=== PATIENT | male | born 1955 | race Caucasian/White ===

== ENCOUNTER → 2020-02-10 16:06 | Outpatient (BNVA) | payer MEDICAID, SELFPAY | PROVIDERS: Family Provider Nurse Practitioner Family; PCP Nurse Practitioner Family; Visit Provider Family Medicine | DX: M25.862 Other specified joint disorders, left knee (principal); M25.562 Pain in left knee; M25.572 Pain in left ankle and joints of left foot | CPT/HCPCS: 73562; 73600 ==

== ENCOUNTER → 2020-06-14 08:45 | Outpatient (BNVA) | payer MEDICAID, SELFPAY | PROVIDERS: Family Provider Nurse Practitioner Family; PCP Nurse Practitioner Family; Visit Provider Nurse Practitioner Family | DX: J44.9 Chronic obstructive pulmonary disease, unspecified (principal); R53.83 Other fatigue; E55.9 Vitamin D deficiency, unspecified; Z13.6 Encounter for screening for cardiovascular disorders; Z79.899 Other long term (current) drug therapy | CPT/HCPCS: 80053; 80061; 81003; 82306; 83036; 84443; 85025 ==

== ENCOUNTER → 2022-02-15 09:12 | Outpatient (BNVA) | payer MEDICARE, MEDICAID, SELFPAY | PROVIDERS: Family Provider Nurse Practitioner Family; PCP Nurse Practitioner; Visit Provider Nurse Practitioner | DX: J44.9 Chronic obstructive pulmonary disease, unspecified (principal); Z13.6 Encounter for screening for cardiovascular disorders; Z79.899 Other long term (current) drug therapy; Z12.5 Encounter for screening for malignant neoplasm of prostate; E55.9 Vitamin D deficiency, unspecified; J30.89 Other allergic rhinitis; M25.572 Pain in left ankle and joints of left foot; M25.562 Pain in left knee; Z00.00 Encounter for general adult medical examination without abnormal findings; M19.90 Unspecified osteoarthritis, unspecified site; Z23 Encounter for immunization | CPT/HCPCS: 80053; 80061; 82306; 84443; 85025; G0103 ==

== ENCOUNTER 2023-02-16 21:41 | Emergency (ER) | payer MEDICARE, MEDICAID, SELFPAY ==
[2023-02-16 22:06] VITALS: BP 119/86; PULSE 110; RESP 22; TEMP 36.6; O2SAT 93; BMI 22.6
--- NOTE | 2023-02-16 22:11 | XRR_ITS ---
PROCEDURE INFORMATION: Exam: XR Chest Exam date and time: 02/16/2023 10:17 PM Age: 67 years old Clinical indication: Shortness of breath; Patient HX: SOB; Copd; Chf; Smoker TECHNIQUE: Imaging protocol: Radiologic exam of the chest. Views: 1 view. COMPARISON: CT angio chest PE protcl [id number] 08/20/2018 10:07 PM FINDINGS: Lungs: At least mild COPD with diffuse interstitial scarring. Pleural spaces: Unremarkable. No pleural effusion. No pneumothorax. Heart/Mediastinum: The heart is large. Vasculature: Advanced diffuse vascular calcification noted. Bones/joints: Moderate spine DJD. XR/XR chest 1V portable [id number] IMPRESSION: 1. Chronic findings above, no acute process. 2. Findings have progressed from 05/07/2017.
[2023-02-16 22:21] LABS: Basophils # 0.1 10^3/uL (0.0-0.1); Eosinophils # 0.2 10^3/uL (0.0-0.8); Eosinophils % 2.7 %; Hematocrit 46.4 % (37-53); Lymphocytes # 2.6 10^3/uL (0.8-4.8); Lymphocytes % 32.3 %; Mean Corpuscular HGB Conc 31.9 g/dL (30-55); Mean Corpuscular Hemoglobin 28.3 pg (27-33); Mean Corpuscular Volume 88.7 fl (82-101); Monocytes # 0.7 10^3/uL (0.2-0.9); Neutrophils # 4.52 10^3/uL (1.8-7.7); Neutrophils % 55.6 %; Nucleated Red Blood Cells % 0.4 %; Platelet Count 269 10^3/cmm (157-399); Red Blood Count 5.23 10^6/uL (3.85-5.65); Red Cell Distribution Width 15.1 % (12.1-15.1); White Blood Count 8.13 10^3/uL (3.29-11.43)
--- NOTE | 2023-02-16 22:28 | ED_ITS ---
HPI - SOB/Dyspnea 2 General: Chief Complaint: Shortness of Breath/Dyspnea Stated Complaint: Shortness of breath Time Seen by Provider: 02/16/23 22:11 History of Present Illness: HPI Narrative: Patient presents to the ER with complaints of shortness of breath over the last 3 days. Patient says been getting worse. Patient denies any fever chills. Patient has a rattling cough. Patient does have a history of COPD and is on albuterol and DuoNeb. Patient does not use Nor does he have oxygen at home. Patient has not been around any known sick contacts. Patient did go to his PCPs office on 1126 patient was given a diagnosis of COPD exacerbation gastroenteritis. He was given Rocephin 1 g, Decadron 10 mg, had his inhalers refilled and Zofran. Patient has a heart rate of 110 bpm in the ER as well as a O2 saturation of 93% on room air. Upon reviewing chart patient is tachycardic a lot of times with heart rate being 100 110 bpm. Related Data: Home oxygen amount: none Review of Systems 2 General: Reports: 10 or more systems reviewed and unremarkable except in HPI and below PFSH ED 2 PFSH: Medical History COPD exacerbation Nausea & vomiting Lower respiratory infection Environmental and seasonal allergies Fatigue Hypertension screen Medication management Vitamin D deficiency Left ankle pain Left knee pain Mild acid reflux COPD (chronic obstructive pulmonary disease) Anxiety Hypercholesterolemia Surgical History Status post bladder repair Status post lobectomy of lung Family History Other CAD (coronary artery disease) Cancer Hyperlipidemia Hypertension Social History Smoking and tobacco/nicotine status: current every day tobacco/nicotine user Alcohol intake: former Substance/Drug Use: former Physical Exam 2 Const: COMMON NORMALS: no acute distress, average body habitus, patient oriented x3, no limitations, healthy appearing, alert and well nourished HENMT: COMMON NORMALS: normocephalic, atraumatic, hearing grossly normal bilaterally, external ears normal, Normal external nose present, moist oral mucous membranes and oropharynx normal HEAD & SCALP: normocephalic and atraumatic NOSE: Normal external nose present EXTERNAL EAR: Yes external ears normal Neck/C-Spine: COMMON NORMALS: full ROM, no lymphadenopathy, supple, no meningeal signs, no JVD and Thyroid normal THYROID: Thyroid normal Chest: COMMONS NORMALS: normal inspection of the chest and normal palpation of entire chest wall Resp: COMMON NORMALS: normal respiratory effort, No retractions and No use of accessory muscles; negative for clear to auscultation bilaterally (Diffuse rhonchi and wheezing bilaterally) AUSCULTATION: not clear to auscultation bilaterally (Diffuse rhonchi and wheezing bilaterally) Cardio: COMMON NORMALS: no JVD, regular rhythm, S1 normal heart sound present, S2 normal heart sound present, No gallops present (Cardio), No clicks present (Cardio), No murmurs present (Cardio) and No rub (Cardio); negative for regular rate (Tachycardic) RATE: abnormal rate (Tachycardic) RHYTHM: regular rhythm HEART SOUNDS: S1 normal heart sound present and S2 normal heart sound present GI: COMMON NORMALS: Normal to inspection, nondistended, normoactive bowel sounds present, Soft to palpation, non-tender, No hepatosplenomegaly present and no masses PALPATION: Yes Soft to palpation and Yes No hepatosplenomegaly present Neuro: COMMON NORMALS: patient oriented x3 SENSORIUM/ORIENTATION: Yes alert MENINGEAL SIGNS: Yes no meningeal signs Course 2 Vital Signs: Vital signs: Vital Signs Temperature 97.8 F 02/16/23 22:06 Pulse Rate 89 02/17/23 01:44 Respiratory Rate 18 02/17/23 01:44 Blood Pressure 126/89 02/17/23 01:44 Pulse Oximetry 94 02/17/23 01:44 Oxygen Delivery Me thod Nasal Cannula 02/17/23 00:22 Oxygen Flow Rate 2 02/17/23 00:22 MDM - SOB/Dyspnea Medical Decision Making Patient presents to the ER complaining of shortness of breath. Lab work was essentially unremarkable. Chest x-ray showed chronic findings no acute changes CT of a of chest showed no PE and COPD changes. Patient will probably be discharged with COPD diagnosis. Differential Diagnosis Likely acute exacerbation of chronic obstructive airways disease; Unlikely congestive heart failure, community acquired pneumonia, asthma with exacerbation or pulmonary embolism Medical Records I reviewed the patient's medical records. Lab Data I reviewed the patient's lab results. 12/01/23 22:00 02/16/23 22:00 Labs/Radiology: Radiology Impressions Chest X-Ray 02/16/23 22:11 IMPRESSION: 1. Chronic findings above, no acute process. 2. Findings have progressed from 05/07/2017. Chest CTA 02/16/23 23:53 IMPRESSION: 1. No PE. 2. Very large heart with trace left effusion and areas of bilateral mid to lower lung atelectasis or scarring. 3. COPD and other chronic findings above. A few lung opacities as described with mild lymphadenopathy. Recommend six-month follow-up. Laboratory Results WBC 8.13 10^3/uL (3.29-11.43) 02/16/23 22:00 RBC 5.23 10^6/uL (3.85-5.65) 02/16/23 22:00 Hgb 14.80 g/dL (11.27-16.99) 02/16/23 22:00 Hct 46.4 % (37-53) 02/16/23 22:00 MCV 88.7 fl (82-101) 02/16/23 22:00 MCH 28.3 pg (27-33) 02/16/23 22:00 MCHC 31.9 g/dL (30-55) 02/16/23 22:00 RDW 15.1 % (12.1-15.1) 02/16/23 22:00 Plt Count 269 10^3/cmm (157-399) 02/16/23 22:00 MPV 10.0 fL (7.4-10.4) 02/16/23 22:00 Neut % (Auto) 55.6 % 02/16/23 22:00 Lymph % (Auto) 32.3 % 02/16/23 22:00 [place] % (Auto) 8.0 % 02/16/23 22:00 Eos % (Auto) 2.7 % 02/16/23 22:00 Baso % (Auto) 1.0 % 02/16/23 22:00 Neut # (Auto) 4.52 10^3/uL (1.8-7.7) 02/16/23 22:00 Lymph # (Auto) 2.6 10^3/uL (0.8-4.8) 02/16/23 22:00 [place] # (Auto) 0.7 10^3/uL (0.2-0.9) 02/16/23 22:00 Eos # (Auto) 0.2 10^3/uL (0.0-0.8) 02/16/23 22:00 Baso # (Auto) 0.1 10^3/uL (0.0-0.1) 02/16/23 22:00 Nucleated RBC % (auto) 0.4 % 02/16/23 22:00 Nucleated RBCs # 0.0 /100WBC 02/16/23 22:00 D-Dimer 1.75 ug/mLFEU (0-0.59) H 02/16/23 23:05 Sodium 139 mmol/L (136-145) 02/16/23 22:00 Potassium 4.5 mmol/L (3.5-5.1) 02/16/23 22:00 Chloride 102 mmol/L (98-107) 02/16/23 22:00 Carbon Dioxide 25 mmol/L (22-29) 02/16/23 22:00 Anion Gap 16.5 (5-19) 02/16/23 22:00 BUN 19 mg/dL (8-23) 02/16/23 22:00 Creatinine 0.7 mg/dL (0.7-1.2) 02/16/23 22:00 GFR Calculation 112.5 mL/min (90-130) 02/16/23 22:00 Glucose 115 mg/dL (65-115) 02/16/23 22:00 Calculated Osmolality 291 mOsm/kg (285-295) 02/16/23 22:00 Calcium 9.1 mg/dL (8.5-10.5) 02/16/23 22:00 Total Bilirubin 0.8 mg/dL (0.15-1.2) 02/16/23 22:00 AST 56 U/L (0-40) H 02/16/23 22:00 ALT 98 U/L (0-41) H 02/16/23 22:00 Alkaline Phosphatase 120 U/L (40-130) 02/16/23 22:00 Troponin T Baseline 27 ng/L (0-15) H 02/16/23 22:00 Troponin T 120 Minute 25.51 ng/L (0-15) H 02/17/23 00:25 Delta Troponin T -1.49 ABS# (0-10) L 02/17/23 00:25 Total Protein 6.9 g/dL (6.6-8.7) 02/16/23 22:00 Albumin 3.9 g/dL (3.5-5.2) 02/16/23 22:00 Globulin 3.0 g/dL (1.3-4.6) 02/16/23 22:00 Influenza Type A Ag negative (Negative) 02/16/23 23:00 Influenza Type B Ag negative (Negative) 02/16/23 23:00 SARS-CoV-2 Ag (Rapid) negative (Negative) 02/16/23 23:00 All radiology interpretation(s) finalized by discharge EKG Data EKG 1: I personally reviewed and interpreted this EKG as follows: EKG Interpretation Date: 02/16/23 EKG interpretation time: 22:39 Prior EKG tracings: not available for review Interpretation: EKG shows ventricular rate 106 bpm, OH interval 137, QRS duration 114, QTc of 401, sinus tachycardia, moderate intraventricular conduction delay Discharge Plan Discharge Patient Disposition: Home Clinical Impression: Acute exacerbation of chronic obstructive airways disease Condition: Stable Prescriptions: New prednisone 20 mg tablet 60 mg PO DAILY Qty: 15 0RF doxycycline hyclate 100 mg tablet 100 mg PO BID 7 Days Qty: 14 0RF No Action ceftriaxone 1 gram recon soln 1 g IM ONCE Qty: 1 0RF dexamethasone sodium phosphate 4 mg/mL solution 4 mg IM ONCE Qty: 1 0RF ondansetron HCl 4 mg tablet 4 mg PO Q8H PRN (Reason: nausea and vomiting) 5 Days Qty: 14 0RF promethazine-DM 6.25-15 mg/5 mL syrup 5 - 10 ml PO Q6H PRN (Reason: cough) 14 Days Qty: 473 0RF fluticasone propion-salmeterol [Advair Diskus] 500-50 mcg/dose blister with device See Rx Instructions .ROUTE .COMPLEX Qty: 60 0RF Dose Instruction: USE 1 INHALATION BY MOUTH TWICE DAILY Rx Instructions: USE 1 INHALATION BY MOUTH TWICE DAILY famotidine 20 mg tablet See Rx Instructions .ROUTE .COMPLEX Qty: 60 11RF Dose Instruction: Take 1 tablet by mouth twice daily Rx Instructions: Take 1 tablet by mouth twice daily Atrovent HFA 17 mcg/actuation HFA aerosol inhaler See Rx Instructions .ROUTE .COMPLEX Qty: 12.9 11RF Dose Instruction: USE 2 INHALATIONS BY MOUTH 4 TIMES DAILY Rx Instructions: USE 2 INHALATIONS BY MOUTH 4 TIMES DAILY albuterol sulfate 90 mcg/actuation HFA aerosol inhaler See Rx Instructions .ROUTE .COMPLEX Qty: 6.7 11RF Dose Instruction: Inhale 1 puff by mouth 3 times a day as needed for shortness of breath Rx Instructions: Inhale 1 puff by mouth 3 times a day as needed for shortness of breath albuterol sulfate [ProAir HFA] 90 mcg/actuation HFA aerosol inhaler 1 inh INHALATION TID PRN (Reason: shortness of breath) Qty: 18 5RF celecoxib [Celebrex] 200 mg capsule 200 mg PO DAILY Qty: 30 4RF ergocalciferol (vitamin D2) 1,250 mcg (50,000 unit) capsule See Rx Instructions .ROUTE .COMPLEX Qty: 4 2RF Dose Instruction: TAKE ONE CAPSULE BY MOUTH ONCE A WEEK Rx Instructions: TAKE ONE CAPSULE BY MOUTH ONCE A WEEK fluticasone propionate 50 mcg/actuation spray,suspension See Rx Instructions .ROUTE .COMPLEX Qty: 16 2RF Dose Instruction: Use 1 spray into each nostril every day Rx Instructions: Use 1 spray into each nostril every day albuterol sulfate 2.5 mg /3 mL (0.083 %) solution for nebulization See Rx Instructions .ROUTE .COMPLEX Qty: 180 0RF Dose Instruction: USE 1 VIAL (3 ML) IN NEBULIZER every 6 HOURS Needed FOR shortness OF breath OR wheezing Rx Instructions: USE 1 VIAL (3 ML) IN NEBULIZER every 6 HOURS Needed FOR shortness OF breath OR wheezing Discharge Orders: Discharge ED (Routine); Ordered 02/17/23 Ordered By: Tono Gallegos Referrals: Shannon Merchant FNP [Primary Care Provider] - 1-3 days Patient Instructions: COPD (Chronic Obstructive Pulmonary Disease) (ED), Opioid Safety, Pain Management Activity Restrictions/Additional Instructions: Use your nebulizer machine every 4 hours while awake for the next 48 hours scheduled whether you feel like you needed or not, then as needed following. Other medications as directed. Return for worsening shortness of breath or chest discomfort or fever despite treatment. See your doctor next week. Coding Level of Care Code ED Foam Caster for Gavin Oliveros
--- NOTE | 2023-02-16 22:39 | ECG_ITS ---
[facility] Test Date: 2023-02-16 Pat Name: José Collier Department: Room: Gender: Male Circulation Clerk: : 1955 Requested By: Barron De Oliveira Order Number: [id number] Keren MD: Layla New M.D. Measurements Intervals [place] Rate: 106 P: 73 MO: 137 QRS: -9 QRSD: 114 T: 119 QT: 339 QTc: 450 Interpretive Statements SINUS TACHYCARDIA POSSIBLE LEFT ATRIAL ENLARGEMENT [-0.1mV P-WAVE IN V1/V2] MODERATE INTRAVENTRICULAR CONDUCTION DELAY [110+ ms QRS DURATION] ST DEVIATION AND MODERATE T-WAVE ABNORMALITY, CONSIDER LATERAL ISCHEMIA [-0.1+ mV T-WAVE IN I/aVL/V5/V6] Compared to ECG 08/20/2018 19:51:00 Intraventricular conduction delay now present T-wave abnormality now present Possible ischemia now present Left ventricular hypertrophy no longer present ST (T wave) deviation no longer present Electronically Signed On 02-18-2023 21:32:18 BUSINESS LIBRARIAN by Layla New M.D. [id number]
[2023-02-16 22:44] LABS: Alanine Aminotransferase 98 U/L (0-41); Albumin Level 3.9 g/dL (3.5-5.2); Alkaline Phosphatase 120 U/L (40-130); Anion Gap 16.5 (5-19); Aspartate Amino Transferase 56 U/L (0-40); Blood Urea Nitrogen 19 mg/dL (8-23); Calcium 9.1 mg/dL (8.5-10.5); Carbon Dioxide 25 mmol/L (22-29); Chloride 102 mmol/L (98-107); Glomerular Filtration Rate 112.5 mL/min (90-130); Glucose 115 mg/dL (65-115); Osmolality Calculated 291 mOsm/kg (285-295); Potassium 4.5 mmol/L (3.5-5.1); Sodium 139 mmol/L (136-145); Total Bilirubin 0.8 mg/dL (0.15-1.2); Total Protein 6.9 g/dL (6.6-8.7)
[2023-02-16 23:14] LABS: Troponin(5th) Baseline 27 ng/L (0-15)
[2023-02-16 23:34] LABS: Influenza A by IFA negative (Negative); Influenza B by IFA negative (Negative); SARS Covid-2 Antigen negative (Negative)
[2023-02-16 23:44] LABS: D Dimer 1.75 ug/mLFEU (0-0.59)
--- NOTE | 2023-02-16 23:53 | CTR_ITS ---
PROCEDURE INFORMATION: Exam: CTA Chest With Contrast Exam date and time: 02/17/2023 12:08 AM Age: 67 years old Clinical indication: Abnormal findings; Abnormal diagnostic tests; Elevated d-dimer; Cough and shortness of breath; Patient HX: Cough with SOB. Dimer 1.75. ; Additional info: Elevated d dimer, tachycardia, hypoxia TECHNIQUE: Imaging protocol: Computed tomographic angiography of the chest with contrast. Exam focused on the arteries. 3D rendering (Not supervised by radiologist): MIP and/or 3D reconstructed images were created by the technologist. Radiation optimization: All CT scans at this facility use at least one of these dose optimization techniques: automated exposure control; mA and/or kV adjustment per patient size (includes targeted exams where dose is matched to clinical indication); or iterative reconstruction. Contrast material: OMNI 350; Contrast volume: 77 ml; Contrast route: INTRAVENOUS (IV); REPORTING DATA: Count of CT and Cardiac NM exams in prior 12 months: This patient has received 0 known CTs and 0 known cardiac nuclear medicine studies in the 12 months prior to the current study. COMPARISON: CT angio chest PE protcl [id number] 08/20/2018 10:07 PM RADIATION DOSE METRICS: Total DLP (mGy-cm): 211.38 FINDINGS: Pulmonary arteries: No main, lobar, or segmental PE identified. Aorta: Advanced diffuse vascular calcification noted. No aortic aneurysm. No aortic dissection. Lungs: Moderate COPD. Mild areas of bilateral mid to lower lung atelectasis or scarring. No actual consolidation is noted. No dominant lung mass or spiculated nodule. Small area of RML nodular consolidation or scar. Pleural spaces: Trace left pleural effusion. Heart: The heart is very large. Coronary arteries: Advanced coronary calcified plaque. Lymph nodes: Mild likely reactive mediastinal and right hilar lymphadenopathy. Diaphragm: Small hiatal hernia. Liver: Partially assessed large liver. Bones/joints: Mild spine DJD. Soft tissues: Unremarkable. CT/CT angio chest PE protcl [id number] IMPRESSION: 1. No PE. 2. Very large heart with trace left effusion and areas of bilateral mid to lower lung atelectasis or scarring. 3. COPD and other chronic findings above. A few lung opacities as described with mild lymphadenopathy. Recommend six-month follow-up.
[2023-02-17] MEDS: iohexol 350 mg/mL 500 mL Btl (per mL) IV (00:11)
[2023-02-17 00:15] VITALS: PULSE 105; RESP 20; O2SAT 93
[2023-02-17] MEDS: albuterol 2.5 mg/3 mL Neb INHALATION (00:17)
[2023-02-17 00:22] VITALS: PULSE 104; O2SAT 95
--- NOTE | 2023-02-17 00:30 | ECG_ITS ---
[facility] Test Date: 2023-02-17 Pat Name: José Collier Department: Room: Gender: Male Legal Office Administrator: : 1955 Requested By: Barron De Oliveira Order Number: [id number] Keren MD: Layla New M.D. Measurements Intervals [place] Rate: 106 P: 74 VT: 108 QRS: -8 QRSD: 113 T: 144 QT: 349 QTc: 464 Interpretive Statements SINUS TACHYCARDIA WITH SHORT VT INTERVAL POSSIBLE LEFT ATRIAL ENLARGEMENT [-0.1mV P-WAVE IN V1/V2] MODERATE INTRAVENTRICULAR CONDUCTION DELAY [110+ ms QRS DURATION] ST DEVIATION AND MODERATE T-WAVE ABNORMALITY, CONSIDER LATERAL ISCHEMIA [-0.1+ mV T-WAVE IN I/aVL/V5/V6] Compared to ECG 02/16/2023 22:39:43 Short VT interval now present T-wave abnormality still present Possible ischemia still present Electronically Signed On 02-18-2023 21:36:11 LIBRARY CIRCULATION CLERK by Layla New M.D. [id number]
[2023-02-17 01:07] LABS: Troponin 5 2HR 25.51 ng/L (0-15)
[2023-02-17 01:09] LABS: Troponin 5 2HR Delta -1.49 ABS# (0-10)
[2023-02-17 01:44] VITALS: BP 126/89; PULSE 89; RESP 18; O2SAT 94
[2023-02-17] MEDS: doxycycline 100 mg Tablet PO (01:44)
== END 2023-02-17 01:45 | disposition home or self-care (01) ==
PROVIDERS: Emergency Provider Emergency Medicine; PCP Nurse Practitioner
DX: J44.1 Chronic obstructive pulmonary disease with (acute) exacerbation (principal); Z11.52 Encounter for screening for COVID-19; Z72.0 Tobacco use; Z90.5 Acquired absence of kidney
CPT/HCPCS: 36415; 71045; 71275; 80053; 84484; 85025; 85378; 87040; 87426; 87804; 93005; 94640; 99285; J7613; Q9967

== ENCOUNTER 2023-02-25 01:56 | Inpatient (IN) | payer MEDICARE, MEDICAID, SELFPAY ==
[2023-02-25] VITALS (82 sets, daily range): BP systolic 87–133; BP diastolic 55–87; PULSE 88–115; RESP 14–30; TEMP 36.3–37; O2SAT 90–100; BMI 18.8
--- NOTE | 2023-02-25 02:18 | XRR_ITS ---
PROCEDURE INFORMATION: Exam: XR Chest Exam date and time: 02/25/2023 2:27 AM Age: 67 years old Clinical indication: Shortness of breath; Patient HX: C/O SOB. History of copd. TECHNIQUE: Imaging protocol: Radiologic exam of the chest. Views: 1 view. COMPARISON: CT angio chest PE protcl [id number] 02/17/2023 12:08 AM FINDINGS: Lungs: No new focal consolidation. Irregular opacities in the right middle lobe seen on recent CT are not well visualized radiographically. Scattered atelectasis/scarring. Background COPD/emphysema. Pleural spaces: No large pleural effusion. No pneumothorax. Heart/Mediastinum: Cardiomegaly. Bones/joints: No acute abnormality. XR/XR chest 1V portable [id number] IMPRESSION: 1. Unchanged exam compared to 02/16/2023 radiographs. 2. No new focal consolidation. Irregular opacities in the right middle lobe seen on recent CT are not well visualized radiographically. 3. Background COPD/emphysema. 4. Cardiomegaly.
--- NOTE | 2023-02-25 02:26 | ECG_ITS ---
[facility] Test Date: 2023-02-25 Pat Name: José Collier Department: Room: Gender: Male Hop Worker: : 1955 Requested By: Tono Delatorre Order Number: [id number] Keren MD: Gustavo Whittington M.D. Measurements Intervals [place] Rate: 104 P: 74 CO: 108 QRS: -31 QRSD: 113 T: 142 QT: 357 QTc: 471 Interpretive Statements SINUS TACHYCARDIA WITH SHORT CO INTERVAL POSSIBLE LEFT ATRIAL ENLARGEMENT [-0.1mV P-WAVE IN V1/V2] LEFT AXIS DEVIATION [QRS AXIS < -30] MODERATE INTRAVENTRICULAR CONDUCTION DELAY [110+ ms QRS DURATION] ST DEVIATION AND MODERATE T-WAVE ABNORMALITY, CONSIDER LATERAL ISCHEMIA [-0.1+ mV T-WAVE IN I/aVL/V5/V6] Compared to ECG 02/17/2023 00:30:09 Left-axis deviation now present T-wave abnormality still present Possible ischemia still present Electronically Signed On 02-25-2023 8:36:54 HOP WORKER by Gustavo Whittington M.D. [id number] mendez
[2023-02-25 02:29] LABS: Basophils % 0.1 %; Hematocrit 44.6 % (37-53); Lymphocytes # 1.2 10^3/uL (0.8-4.8); Lymphocytes % 8.3 %; Mean Corpuscular HGB Conc 32.7 g/dL (30-55); Mean Corpuscular Hemoglobin 28.1 pg (27-33); Mean Corpuscular Volume 85.8 fl (82-101); Mean Platelet Volume 9.9 fL (7.4-10.4); Monocytes % 7.1 %; Neutrophils % 83.6 %; Nucleated Red Blood Cells # 0.2 /100WBC; Nucleated Red Blood Cells % 1.2 %; Platelet Count 176 10^3/cmm (157-399); Red Cell Distribution Width 15.2 % (12.1-15.1); White Blood Count 14.14 10^3/uL (3.29-11.43)
[2023-02-25 02:55] LABS: Anion Gap 15.5 (5-19); Blood Urea Nitrogen 29 mg/dL (8-23); Calcium 8.7 mg/dL (8.5-10.5); Carbon Dioxide 28 mmol/L (22-29); Chloride 95 mmol/L (98-107); Glomerular Filtration Rate 96.4 mL/min (90-130); Glucose 121 mg/dL (65-115); Osmolality Calculated 285 mOsm/kg (285-295); Potassium 4.5 mmol/L (3.5-5.1); Sodium 134 mmol/L (136-145)
[2023-02-25] MEDS: ipratropium-albuterol 3 mL Neb INHALATION ×4 (03:24→20:27)
[2023-02-25] MEDS: morphine 4 mg/mL SDV 1 mL IVP (04:14)
[2023-02-25] MEDS: ondansetron 2 mg/ML SDV 2 mL 4 MG IVP ×2 (04:14→17:39)
--- NOTE | 2023-02-25 04:14 | PC.NURSE ---
Pt. yelling at doctor Gallegos because he did not like the diagnoses that doctor Gallegos told him. Pt. states that he was just released from [place] and was angry because they did not admit him. Dr. Gallegos tried to explain to the patient that he can not admit a patient without meeting the correct criteria. Pt. is yelling and being disrespectful until Dr. Gallegos states that he will make some calls and consult hospitalist.
--- NOTE | 2023-02-25 04:22 | ED_ITS ---
HPI - SOB/Dyspnea 2 General: Chief Complaint: Shortness of Breath/Dyspnea Stated Complaint: SOB Time Seen by Provider: 02/25/23 03:05 History of Present Illness: HPI Narrative: 67-year-old male gentleman with a histor y of COPD. He has been here last week, diagnosed with a COPD exacerbation, and sent home with steroids. Since that time, he has been to [facility], and been diagnosed with pneumonia . He was sent home on Augmentin and steroids at that point. He presents with continued cough and shortness of breath. He describes bloody sputum production. He states that he has not been able to eat. He has been vomiting. He denies overt chest discomfort. He is on 2 L of oxygen at home. En route to the hospital, he received 125 mg of Solu-Medrol, and albuterol treatment and DuoNeb treatment. Associated symptoms: Reports abdominal pain, chest pain, nausea and vomiting; Deny dizziness, fever(s) or palpitations Review of Systems 2 Const: Denies: fever(s), chills or body aches Eyes: Denies: change in vision Card: Reports: chest pain; Denies: palpitations Resp: Reports: dyspnea, productive cough and wheezing; Denies: non-productive cough GI: Reports: abdominal pain, nausea and vomiting; Denies: diarrhea or hematochezia Skin/Breast: Denies: rash Neuro: Reports: weakness in extremities; Denies: headache(s), dizziness or confusion PFSH ED 2 PFSH: Medical History Pulmonary HTN Tobacco abuse Gastric ulcer Left ventricular dysfunction COPD exacerbation Nausea & vomiting Lower respiratory infection Environmental and seasonal allergies Fatigue Hypertension screen Medication management Vitamin D deficiency Left ankle pain Left knee pain Mild acid reflux COPD (chronic obstructive pulmonary disease) Anxiety Hypercholesterolemia Surgical History Status post bladder repair Status post lobectomy of lung Family History Other CAD (coronary artery disease) Cancer Hyperlipidemia Hypertension Social History Smoking and tobacco/nicotine status: current every day tobacco/nicotine user Alcohol intake: former Substance/Drug Use: former Physical Exam 2 Const: GENERAL APPEARANCE: cooperative, ill appearing and frail appearing N UTRITIONAL APPEARANCE: thin HENMT: COMMON NORMALS: normocephalic, atraumatic and Normal external nose present HEAD & SCALP: normocephalic and atraumatic FACE & SINUS: normal facial exam and face symmetric NOSE: Normal external nose present Eye: COMMON NORMALS: Equal, round and reactive pupils present and EOMs intact bilaterally PUPIL: Yes Equal, round and reactive pupils present Neck/C-Spine: GENERAL: Yes trachea midline Chest: CHEST: Yes Symmetrical chest wall rise Resp: EFFORT & INSPECTION: Yes tachypneic and Yes labored AUSCULTATION: w heezes and diminished lung sounds Cardio: COMMON NORMALS: regular rhythm RATE: tachycardic RHYTHM: regular rhythm GI: COMMON NORMALS: Normal to inspection, nondistended, normoactive bowel sounds present Extremity: COMMON NORMALS: no pedal edema Neuro: IRAJ COMA SCALE: document GCS findings [place] coma scale eye opening: Spontaneous [place] coma scale verbal response: Orientated [place] coma scale motor response: Obey commands [place] coma scale total score: 15 S ENSORY EXAM: Yes extremities (intact) Psych: COMMON NORMALS: speech normal SPEECH: Yes normal speech Skin: COMMON NORMALS: no rashes or lesions noted GENERAL SKIN EXAM: no rashes or lesions noted Course 2 Vital Signs: Vital signs: Vital Signs Temperature 97.7 F 02/25/23 12:00 Pulse Rate 100 02/25/23 15:09 Respiratory Rate 16 02/25/23 15:09 Blood Pressure 120/81 02/25/23 12:00 Pulse Oximetry 90 02/25/23 15:09 Oxygen Delivery Me thod Room Air 02/25/23 15:09 Oxygen Flow Rate 1 02/25/23 04:18 MDM - SOB/Dyspnea Medical Decision Making Vitals are stable, although he is tachypneic. He is somewhat anxious. He continues to cough bloody sputum in the emergency department. He received another DuoNeb treatment here. His BUN is 29. His white blood cell count is 14. Chest x-ray does not show a focal consolidation or infiltrate. As this is his third trip to the hospital in the week, concern is for failure of outpatient management of COPD. Will be observed. Lab Data 02/25/23 02:22 02/25/23 02:22 Labs/Radiology: Radiology Impressions Chest X-Ray 02/25/23 02:18 IMPRESSION: 1. Unchanged exam compared to 02/16/2023 radiographs. 2. No new focal consolidation. Irregular opacities in the right middle lobe seen on recent CT are not well visualized radiographically. 3. Background COPD/emphysema. 4. Cardiomegaly. Chest/Abdomen/Pelvis CT 02/25/23 12:02 IMPRESSION: 1. Interval development of findings suspicious for esophagitis in the mid/distal esophagus. Upper endoscopy may be obtained for further evaluation as clinically indicated. 2. No evidence for pulmonary embolism. 3. Bronchial wall thickening in the right and left lower lobes. Findings could be due to emphysematous changes versus bronchitis. 4. Mild body wall edema. 5. Incidental/nonacute findings are listed in the report. IMPRESSION: 1. Inflamed gastric ulcer in the posterior distal body of the stomach. Increased density layering in the lumen of the stomach, this could represent partially digested medications however a gastric bleed can not be ruled out. Upper endoscopy may be obtained for further evaluation as clinically indicated. 2. Mild fatty infiltration of the liver. 3. Diffuse, moderate bladder wall thickening. In the correct clinical setting, this may suggest cystitis. Recommend correlation with laboratory findings. Alternatively, this may be secondary to chronic outlet obstruction. 4. Mild body wall edema. 5. Incidental/nonacute findings are listed in the report. ADDENDUM: 02/25/23 1701 THIS REPORT CONTAINS FINDINGS THAT MAY BE CRITICAL TO PATIENT CARE. The findings were verbally communicated via telephone conference with KESHA Easley at 4:59 PM CIRCUS TRAINER on 02/25/2023. The findings were acknowledged and understood. Laboratory Results WBC 14.14 10^3/uL (3.29-11.43) H 02/25/23 02:22 RBC 5.20 10^6/uL (3.85-5.65) 02/25/23 02:22 Hgb 14.60 g/dL (11.27-16.99) 02/25/23 02:22 Hct 44.6 % (37-53) 02/25/23 02:22 MCV 85.8 fl (82-101) 02/25/23 02:22 MCH 28.1 pg (27-33) 02/25/23 02:22 MCHC 32.7 g/dL (30-55) 02/25/23 02:22 RDW 15.2 % (12.1-15.1) H 02/25/23 02:22 Plt Count 176 10^3/cmm (157-399) 02/25/23 02:22 MPV 9.9 fL (7.4-10.4) 02/25/23 02:22 Neut % (Auto) 83.6 % 02/25/23 02:22 Lymph % (Auto) 8.3 % 02/25/23 02:22 [place] % (Auto) 7.1 % 02/25/23 02:22 Eos % (Auto) 0.0 % 02/25/23 02:22 Baso % (Auto) 0.1 % 02/25/23 02:22 Neut # (Auto) 11.80 10^3/uL (1.8-7.7) H 02/25/23 02:22 Lymph # (Auto) 1.2 10^3/uL (0.8-4.8) 02/25/23 02:22 [place] # (Auto) 1.0 10^3/uL (0.2-0.9) H 02/25/23 02:22 Eos # (Auto) 0.0 10^3/uL (0.0-0.8) 02/25/23 02:22 Baso # (Auto) 0.0 10^3/uL (0.0-0.1) 02/25/23 02:22 Nucleated RBC % (auto) 1.2 % 02/25/23 02:22 Nucleated RBCs # 0.2 /100WBC 02/25/23 02:22 ESR 1 mm/hr (0-10) 02/25/23 02:22 Sodium 134 mmol/L (136-145) L 02/25/23 02:22 Potassium 4.5 mmol/L (3.5-5.1) 02/25/23 02:22 Chloride 95 mmol/L (98-107) L 02/25/23 02:22 Carbon Dioxide 28 mmol/L (22-29) 02/25/23 02:22 Anion Gap 15.5 (5-19) 02/25/23 02:22 BUN 29 mg/dL (8-23) H 02/25/23 02:22 Creatinine 0.8 mg/dL (0.7-1.2) 02/25/23 02:22 GFR Calculation 96.4 mL/min (90-130) 02/25/23 02:22 Glucose 121 mg/dL (65-115) H 02/25/23 02:22 Calculated Osmolality 285 mOsm/kg (285-295) 02/25/23 02:22 Calcium 8.7 mg/dL (8.5-10.5) 02/25/23 02:22 Troponin T Baseline 32 ng/L (0-15) H 02/25/23 02:22 Troponin T 120 Minute 28.87 ng/L (0-15) H 02/25/23 04:38 Delta Troponin T -3.13 ABS# (0-10) L 02/25/23 04:38 NT-Pro-B Natriuret Pep 9025 pg/mL (0-125) H 02/25/23 02:22 Vitamin B12 > 2000 pg/mL (232-1245) H 02/25/23 02:22 Procalcitonin 0.16 ng/mL (0-0.5) 02/25/23 02:22 All radiology interpretation(s) finalized by discharge Discharge Plan Discharge Patient Disposition: Admitted As Inpatient Admit Provider: Hernan Sheppard Clinical Impression: Acute CHF (congestive heart failure), COPD (chronic obstructive pulmonary disease) Condition: Fair Coding Level of Care Code ED Instrument Specialist for Gavin Oliveros
[2023-02-25 04:39] LABS: Troponin(5th) Baseline 32 ng/L (0-15)
[2023-02-25 04:46] LABS: NT Pro B Type Natriuretic Pept 9025 pg/mL (0-125)
--- NOTE | 2023-02-25 04:50 | P.HP_ITS ---
Providers/Chief Complaint 2 Primary Care Provider: Shannon Mercahnt APN Chief Complaint: SOB History of Present Illness José Collier is a 67 year old male who is presenting with chief complaint of shortness of breath with hemoptysis. Patient is stating that he has been short of breath for quite some time, he carries history of congestive heart failure but stating that he does not take any diuretic, he does not use any oxygen at home, he has had 3 visits in the ER and he was seen at [facility] he was put on steroids and antibiotics which has not improved his symptoms. Patient is stating that in the last 24 hours he has been noticing a lot of sputum production with blood, his mucoid secretions have more blood in his, patient was concerned that he is losing blood because he filled the toilet from excessive coughing and blood. However in the ER his x-ray is showing hyperinflated COPD related changes, hemoglobin is stable, he is hemodynamically stable. CTA which was done 02/16 did not show PE, it showed cardiomegaly with lymphadenopathy Patient cachectic and malnourished Lives alone, sister lives in town, Review of Systems 2 Eyes: Denies: change in vision ENMT: Reports: throat pain Card: Reports: dyspnea on exertion and orthopnea Resp: Reports: dyspnea and hemoptysis GI: Denies: abdominal pain Medications/Allergies Home Medications Medication Instructions Recorded Confirmed Last Taken Type famotidine 20 mg tablet See Rx Instructions .Route 04/17/22 02/12/23 Unknown Rx .COMPLEX #60 tabs ipratropium bromide 17 See Rx Instructions .Route 09/18/22 02/12/23 Unknown Rx mcg/actuation HFA aerosol inhaler .COMPLEX #12.9 grams (Atrovent HFA) albuterol sulfate 90 mcg/actuation See Rx Instructions .Route 10/13/22 02/12/23 Unknown Rx aerosol inhaler .COMPLEX #6.7 grams albuterol sulfate 90 mcg/actuation 1 inh inhalation TID PRN shortness 10/13/22 02/12/23 Unknown Rx aerosol inhaler (ProAir HFA) of breath #18 grams celecoxib 200 mg capsule (Celebrex) 200 mg PO DAILY #30 caps 10/13/22 02/12/23 Unknown Rx ergocalciferol (vitamin D2) 1,250 See Rx Instructions .Route 10/13/22 02/12/23 Unknown Rx mcg (50,000 unit) capsule .COMPLEX #4 caps fluticasone propionate 50 See Rx Instructions .Route 10/13/22 02/12/23 Unknown Rx mcg/actuation nasal .COMPLEX #16 grams spray,suspension albuterol sulfate 2.5 mg/3 mL See Rx Instructions .Route 02/12/23 Unknown Rx (0.083 %) solution for nebulization .COMPLEX #180 mL fluticasone 500 mcg-salmeterol 50 See Rx Instructions .Route 02/12/23 02/12/23 Unknown Rx mcg/dose blistr powdr for .COMPLEX #60 ea inhalation (Advair Diskus) ondansetron HCl 4 mg tablet 4 mg PO Q8H PRN nausea and 02/12/23 02/12/23 Unknown Rx vomiting 5 days #14 tabs promethazine-DM 6.25 mg-15 mg/5 mL 5 - 10 ml PO Q6H PRN cough 14 days 02/12/23 02/12/23 Unknown Rx oral syrup #473 mL prednisone 20 mg tablet 60 mg (3 x 20 mg) PO DAILY #15 tabs 02/17/23 Unknown Rx Allergies Allergy/AdvReac Type Severity Reaction Status Date / Time No Known Allergies Allergy Verified 02/25/23 02:03 PFSH Acute 2 PFSH: Medical History COPD exacerbation Nausea & vomiting Lower respiratory infection Environmental and seasonal allergies Fatigue Hypertension screen Medication management Vitamin D deficiency Left ankle pain Left knee pain Mild acid reflux COPD (chronic obstructive pulmonary disease) Anxiety Hypercholesterolemia Surgical History Status post bladder repair Status post lobectomy of lung Family History Other CAD (coronary artery disease) Cancer Hyperlipidemia Hypertension Social History Smoking and tobacco/nicotine status: current every day tobacco/nicotine user Alcohol intake: former Substance/Drug Use: former Vitals/I&O/Wt Last Vital Signs Temp 98.1 F 02/25/23 01:58 Pulse 90 02/25/23 04:18 Resp 20 H 02/25/23 04:18 BP 113/87 02/25/23 04:18 Pulse Ox 96 02/25/23 04:18 O2 Del Method Nasal Cannula 02/25/23 04:18 O2 Flow Rate 1 02/25/23 04:18 Weight last 48 hrs Weight 54.431 kg Physical Exam 2 Narrative: Patient is cachectic, malnourished Currently on room air Hemodynamically stable Clinically does not look fluid overloaded Protein muscle mass loss Abdomen soft Multiple rhonchi and crackles bilaterally GCS 15 Nonfocal neuroexam Pleasant cooperative Data 02/25/23 02:22 02/25/23 02:22 A&P Assessment and plan (1) COPD exacerbation: (2) Acute CHF (congestive heart failure): (3) Hemoptysis: (4) Malnourished: Plan Hemoptysis H&H stable, hemodynamically stable Patient is cachectic and malnourished Rule out malignancy high D-dimer is extremely high will require CTA chest Patient is an active smoker Lives alone Does not use oxygen at home Acute CHF exacerbation Will request echo Started on Lasix BNP is high clinically does not look fluid overloaded Cardiomegaly noted on chest imaging Cachectic, malnourished Will need diet supplementation Full code DVT prophylaxis CDs for now Continue history of COPD I will keep him on ceftriaxone along doxycycline Attestations 2 Medical Necessity Statement*: Anticipating discharge within 48 hours if remains stable Diagnoses COPD exacerbation J44.1 Acute CHF (congestive heart failure) I50.9 Hemoptysis R04.2 Malnourished E46
--- NOTE | 2023-02-25 04:52 | USCV_ITS ---
José Collier Age: 67 Gender: M : 1955 Exam Date: 02/25/2023 14:52 Ordering Phys: Hernan Sheppard MD Technologist: Rao Whitehead Exam Location: [facility] [place] Indication: chf BP: 123 / 85 HR: 103 Rhythm: Sinus Technical Quality: Adequate MEASUREMENTS (Male / Female) Normal Values 2D ECHO LVOT Diameter 2.1 cm LV Ejection Fraction MOD 2C 15.9 % LV Ejection Fraction 2C AL 15.8 % LA Diameter 3.7 cm LA Width 4.3 cm LA Height 5.0 cm RA Width 4.2 cm RA Height 4.7 cm Aorta at Sinotubular Diameter 2.4 cm IVC Diameter 1.5 cm M-MODE Aortic Annulus Diameter 2.6 cm LA Ao Ratio MM 1.2 MV E Point Septal Separation 2.1 cm DOPPLER AV Peak Velocity 73.0 cm/s LVOT Peak Velocity 57.0 cm/s AV Area Cont Eq vti 1.8 cm squared AV Area Cont Eq pk 2.7 cm squared MV Area PHT 9.2 cm squared Mitral E to A Ratio 2.1 MV E' Velocity 60.0 cm/s Mitral E to LV E' Septal Ratio 21.4 TR Peak Velocity 343.5 cm/s TR Peak Gradient 47.2 mmHg TR Mean Velocity 244.1 cm/s TR Mean Gradient 26.1 mmHg TR Velocity Time Integral 102.7 cm Right Atrial Pressure 3.0 mmHg Pulmonary Artery Systolic Pressu 50.2 mmHg RV Acceleration Time 0.1 s RV Ejection Time 0.3 s RV AcT/ET 0.2 FINDINGS Left Ventricle Severely increased left ventricular cavity size. Decreased left ventricular wall thickness. Severely decreased left ventricular systolic function. Global left ventricular hypokinesis. Left ventricular ejection fraction is estimated at 10 %. Right Ventricle Normal right ventricular size. Mildly decreased right ventricular systolic function. Moderate pulmonary hypertension, RVSP 50.2 mmHg. Right Atrium Mildly increased right atrial size. Left Atrium Mildly increased left atrial size. Mitral Valve Structurally normal mitral valve. Moderate-severe mitral valve regurgitation. Aortic Valve Structurally normal aortic valve without significant sclerosis or stenosis. There is no aortic regurgitation. Tricuspid Valve Structurally normal tricuspid valve. [id number] tricuspid valve regurgitation. Pulmonic Valve Pulmonic valve not well visualized. Pericardium Normal pericardium without effusion. Aorta Normal ascending aorta dimension. IVC The inferior vena cava appears normal. CONCLUSIONS Severely increased left ventricular cavity size. Decreased left ventricular wall thickness. Severely decreased left ventricular systolic function. Global left ventricular hypokinesis. Left ventricular ejection fraction is estimated at 10 %. Normal right ventricular size. Mildly decreased right ventricular systolic function. Moderate pulmonary hypertension, RVSP 50.2 mmHg. Mildly increased right atrial size. Mildly increased left atrial size. Structurally normal mitral valve. Moderate-severe mitral valve regurgitation. There are no prior echocardiogram studies to compare. Dr. Gustavo Whittington MD (Electronically Signed) Final Date: 25 February 2023 16:00 S
[2023-02-25 05:08] LABS: Troponin 5 2HR 28.87 ng/L (0-15); Troponin 5 2HR Delta -3.13 ABS# (0-10)
[2023-02-25 05:43] LABS: Procalcitonin 0.16 ng/mL (0-0.5)
[2023-02-25 05:45] LABS: D Dimer 6.28 ug/mLFEU (0-0.59)
[2023-02-25] MEDS: methylPREDNISolone sod succ 40 mg/mL INJ IVP ×2 (05:57→16:22)
[2023-02-25 06:10] LABS: Vitamin B12 > 2000 pg/mL (232-1245)
[2023-02-25 08:45] LABS: Troponin 5 6HR 24.05 ng/L (0-15)
[2023-02-25 08:48] LABS: Troponin 5 6HR Delta -7.95 ng/L (0-12)
[2023-02-25 09:24] LABS: Erythrocyte Sedimentation Rate 1 mm/hr (0-10)
[2023-02-25] MEDS: doxycycline 100 mg Tablet PO (09:25)
[2023-02-25] MEDS: acetaminophen 500 mg Tablet PO (09:28)
[2023-02-25] MEDS: FUROsemide 10 mg/mL SDV 10mL 40 MG IVP (09:28)
[2023-02-25] MEDS: potassium chloride ER 20 mEq Tablet 40 MEQ PO (09:28)
[2023-02-25] MEDS: cefTRIAXone 1,000 MG in sodium chloride 0.9% (plus) 50 ML 100 MG IV (09:28)
[2023-02-25] MEDS: sennosides-docusate Tablet 1 TAB PO (09:28)
[2023-02-25 09:36] LABS: C Reactive Protein 28.4 mg/L (0.0-4.9)
[2023-02-25 09:43] LABS: Procalcitonin 0.13 ng/mL (0-0.5)
[2023-02-25] MEDS: benzonatate 100 mg Capsule PO (10:36)
--- NOTE | 2023-02-25 12:02 | CTR_ITS ---
PROCEDURE INFORMATION: Exam: CTA Chest With Contrast Exam date and time: 02/25/2023 3:21 PM Age: 67 years old Clinical indication: Abdominal pain; Epigastric; Chest pressure; Additional info: Epigastric pain, tenderness, fulness TECHNIQUE: Imaging protocol: Computed tomographic angiography of the chest with contrast. Exam focused on the arteries. 3D rendering (Not supervised by radiologist): MIP and/or 3D reconstructed images were created by the technologist. Radiation optimization: All CT scans at this facility use at least one of these dose optimization techniques: automated exposure control; mA and/or kV adjustment per patient size (includes targeted exams where dose is matched to clinical indication); or iterative reconstruction. Contrast material: OMNI 350; Contrast volume: 100 ml; Contrast route: INTRAVENOUS (IV); REPORTING DATA: Count of CT and Cardiac NM exams in prior 12 months: This patient has received [address] and 0 known cardiac nuclear medicine studies in the 12 months prior to the current study. COMPARISON: CT angio chest PE protcl [id number] 02/17/2023 12:08 AM RADIATION DOSE METRICS: Total DLP (mGy-cm): 499.32 FINDINGS: Pulmonary arteries: No filling defects in the pulmonary arteries to suggest pulmonary embolism. Aorta: Stable mild atherosclerotic changes in the visualized arteries. No evidence for aortic aneurysm. Evaluation for aortic dissection is limited due to the phase of contrast-enhancement. Trachea: Tracheobronchial structures are patent. Lungs: There is linear scarring in the right middle lobe, left lingula, and right and left lower lobes. Calcified granulomas in the left upper lobe and right lower lobe. Bronchial wall thickening in the right and left lower lobes. Findings could be due to emphysematous changes versus bronchitis. Mild paraseptal and centrilobular emphysematous changes in the lungs. Pleural spaces: No pneumothorax. No pleural effusion. Heart: Stable marked enlargement of the heart. Mediastinal space: Interval development of wall thickening of the mid/distal esophagus, measuring up to 1.1 cm in thickness (series 8, image 359). There is also mild inflammation around the mid/distal esophagus. No mediastinal hematoma. No pneumomediastinum. Lymph nodes: No lymphadenopathy. Liver: The visualized liver is unremarkable. Gallbladder and bile ducts: The visualized gallbladder is unremarkable. No dilatation of the visualized bile ducts. Pancreas: The visualized pancreas is unremarkable. No pancreatic ductal dilatation. Spleen: The spleen is unremarkable. Adrenal glands: The right and left adrenal glands are unremarkable. Kidneys and ureters: The visualized right and left kidneys are unremarkable. Bones/joints: Degenerative changes in the spine and shoulders. Bones are diffusely osteopenic. Soft tissues: Mild body wall edema. COMMENTS: In the absence of a history or active diagnosis of lung cancer, it is recommended that this patient with emphysema be evaluated for enrollment in a low dose CT lung cancer screening program. PROCEDURE INFORMATION: Exam: CT Abdomen And Pelvis With Contrast Exam date and time: 02/25/2023 3:21 PM Age: 67 years old Clinical indication: Abdominal pain; Epigastric; Chest pressure; Additional info: Epigastric pain, tenderness, fulness TECHNIQUE: Imaging protocol: Computed tomography of the abdomen and pelvis with contrast. Radiation optimization: All CT scans at this facility use at least one of these dose optimization techniques: automated exposure control; mA and/or kV adjustment per patient size (includes targeted exams where dose is matched to clinical indication); or iterative reconstruction. Contrast material: OMNI 350; Contrast volume: 100 ml; Contrast route: INTRAVENOUS (IV); REPORTING DATA: Count of CT and Cardiac NM exams in prior 12 months: This patient has received [address] and 0 known cardiac nuclear medicine studies in the 12 months prior to the current study. COMPARISON: No relevant prior studies available. RADIATION DOSE METRICS: Total DLP (mGy-cm): 499.32 FINDINGS: Liver: Diffuse, mildly decreased attenuation in the liver. Findings are consistent with mild fatty infiltration. Gallbladder and bile ducts: The gallbladder is unremarkable. No biliary ductal dilatation. Pancreas: The pancreas is unremarkable. No pancreatic ductal dilatation. Spleen: The spleen is unremarkable. Adrenal glands: The right and left adrenal glands are unremarkable. Kidneys and ureters: The right and left kidneys are unremarkable. The right and left ureters are unremarkable. Stomach and bowel: No acute abnormality in the small bowel. No acute abnormality in the colon. There is an ulcer in the posterior wall of the gastric body measuring 1.9 x 1.0 cm at the base and 7 mm in depth. There is marked wall thickening of the stomach, particularly around the ulcer. There is also inflammatory changes around the body of the ulcer. Increased density layering in the lumen of the stomach, this could represent partially digested medications however a gastric bleed can not be ruled out. Appendix: Appendix not definitely visualized. No inflammatory changes in the pericecal region however. Intraperitoneal space: No free intraperitoneal air. No ascites. No loculated fluid collections to suggest an abscess. Vasculature: Moderate to severe atherosclerotic changes in the abdomen and pelvis. No evidence for aortic aneurysm or aortic dissection. Lymph nodes: No lymphadenopathy. Urinary bladder: Diffuse, moderate bladder wall thickening. Reproductive: The prostate gland is mildly enlarged. Nonspecific parenchymal calcifications in the prostate gland. Bones/joints: Degenerative changes in the spine, sacroiliac joints, and hips. Soft tissues: Mild body wall edema. CT/CT angio chest w abd pel w con IMPRESSION: 1. Interval development of findings suspicious for esophagitis in the mid/distal esophagus. Upper endoscopy may be obtained for further evaluation as clinically indicated. 2. No evidence for pulmonary embolism. 3. Bronchial wall thickening in the right and left lower lobes. Findings could be due to emphysematous changes versus bronchitis. 4. Mild body wall edema. 5. Incidental/nonacute findings are listed in the report. IMPRESSION: 1. Inflamed gastric ulcer in the posterior distal body of the stomach. Increased density layering in the lumen of the stomach, this could represent partially digested medications however a gastric bleed can not be ruled out. Upper endoscopy may be obtained for further evaluation as clinically indicated. 2. Mild fatty infiltration of the liver. 3. Diffuse, moderate bladder wall thickening. In the correct clinical setting, this may suggest cystitis. Recommend correlation with laboratory findings. Alternatively, this may be secondary to chronic outlet obstruction. 4. Mild body wall edema. 5. Incidental/nonacute findings are listed in the report.
[2023-02-25 12:34] LABS: Erythrocyte Sedimentation Rate 1 mm/hr (0-10)
[2023-02-25 12:45] LABS: Estmated Average Glucose 134; Hemoglobin A1C 6.3 % (4.0-6.0)
[2023-02-25 13:30] LABS: Alanine Aminotransferase 664 U/L (0-41); Albumin Level 3.5 g/dL (3.5-5.2); Alkaline Phosphatase 115 U/L (40-130); Aspartate Amino Transferase 231 U/L (0-40); Gamma Glutamyl Transferase 142 U/L (8-61); Globulin 2.2 g/dL (1.3-4.6); Lipase 15 U/L (13-60); Thyroid Stimulating Hormone 2.61 uIU/mL (0.27-4.20); Total Bilirubin 1.7 mg/dL (0.15-1.2); Total Protein 5.7 g/dL (6.6-8.7)
--- NOTE | 2023-02-25 14:45 | P.PN_ITS ---
Subjective 2 Subjective: Patient was seen this morning, he continues to have complaints of scant hemoptysis, no lightheadedness, dizziness, no nausea, no vomiting, cough is well-controlled, does report shortness of breath, does report weight loss, fatigue, malaise, no history of lung cancer, no history of personal cancers does complain of epigastric and right upper quadrant discomfort, Vitals/I&O/Wt Last Vital Signs Temp 97.7 F 02/25/23 12:00 Pulse 100 02/25/23 12:00 Resp 16 02/25/23 12:00 BP 120/81 02/25/23 12:00 Pulse Ox 93 02/25/23 12:00 O2 Del Method Room Air 02/25/23 12:00 O2 Flow Rate 1 02/25/23 04:18 02/24/23 02/25/23 02/25/23 22:59 06:59 14:59 Intake Total 770 / 770 Output Total 250 / 250 Balance 520 / 520 Weight last 48 hrs Weight 50.303 kg Weight 54.431 kg Physical Exam 2 Const: COMMON NORMALS: no acute distress and patient oriented x3 OTHER: Cachectic in appearance, severe muscle wasting, bilateral temporal muscle wasting, bilateral arms, thighs, Eye: COMMON NORMALS: Equal, round and reactive pupils present and EOMs intact bilaterally PUPIL: Yes Equal, round and reactive pupils present Resp: COMMON NORMALS: normal respiratory effort, No retractions, No use of accessory muscles and clear to auscultation bilaterally AUSCULTATION: clear to auscultation bilaterally Cardio: COMMON NORMALS: regular rate, regular rhythm, S1 normal heart sound present and S2 normal heart sound present RATE: regular rate RHYTHM: r egular rhythm HEART SOUNDS: S1 normal heart sound present and S2 normal heart sound present GI: OTHER: Abdomen is soft, slightly distended, no guarding, no rebound, no rigidity, does have tenderness in the right upper quadrant, epigastric region Extremity: COMMON NORMALS: no pedal edema Neuro: COMMON NORMALS: patient oriented x3, CN's II-XII intact bilaterally, moves all extremities and no focal motor deficits Psych: COMMON NORMALS: mental status grossly normal Data 02/25/23 02:22 02/25/23 02:22 A&P Assessment and plan (1) Malnourished: (2) Hemoptysis: (3) Acute CHF (congestive heart failure): (4) COPD exacerbation: (5) Nausea & vomiting: (6) Pneumonia: (7) NSTEMI (non-ST elevated myocardial infarction): (8) Protein calorie malnutrition: (9) Physical deconditioning: (10) Muscle wasting: (11) Anorexia: (12) Weight loss: (13) Transaminitis: (14) Hyperbilirubinemia: Plan Hyperbilirubinemia with transaminitis, with epigastric discomfort, with weight loss -Lipase within normal limits ? I ordered liver function studies, ALT was 664, AST was 231, GGT 142, bili was 1.7 ? Order stat CT scan abdomen pelvis Right middle lobe pneumonia ? Continue Rocephin, azithromycin ? Sputum cultures COPD exacerbation ? Continue Solu-Medrol, ? Continue Dyazide, ? Continue DuoNeb Hemoptysis, likely secondary to pneumonia, H&H stable, hemodynamically stable Patient is cachectic and malnourished Rule out malignancy high D-dimer is extremely high will require CTA chest Patient is an active smoker Lives alone Does not use oxygen at home Acute CHF exacerbation Will request echo Started on Lasix BNP is high clinically does not look fluid overloaded Cardiomegaly noted on chest imaging 1 more dose of Lasix tonight ? Recheck BMP tomorrow NSTEMI ? supply/demand ischemia, type I versus type II -No chest pain complaints ? Continue to monitor telemetry ? Antiplatelet anticoagulant therapy relatively contraindicated given scant hemoptysis Cachectic, malnourished Protein calorie malnutrition Physical deconditioning ? Dietary eval Will need diet supplementation Full code DVT prophylaxis CDs for now Continue history of COPD I will keep him on ceftriaxone along doxycycline Attestations 2 Medical Necessity Statement*: Patient requires hospitalization for COPD exacerbation, scant hemoptysis, pneumonia, CHF, severe protein calorie malnutrition, transaminitis, hyperbilirubinemia, inpatient, greater than 2 midnights Diagnoses Malnourished E46 Hemoptysis R04.2 Acute CHF (congestive heart failure) I50.9 COPD exacerbation J44.1 Nausea & vomiting R11.2 Pneumonia J18.9 NSTEMI (non-ST elevated myocardial infarction) I21.4 Protein calorie malnutrition E46 Physical deconditioning R53.81 Muscle wasting M62.50 Anorexia R63.0 Weight loss R63.4 Transaminitis R74.01 Hyperbilirubinemia E80.6
[2023-02-25 15:16] LABS: ABG PCO2 44.3 mmHg (35-45); ABG PH Result 7.43 (7.35-7.45); Arterial Blood Gas Hematocrit 44.5 % (42-52); Base Excess ABG 4.3 mmol/L (-2.0-2.0); Blood Gas Operator Identificat AMH; Blood Gas Sample Site Brachial, right; Blood Gas Sample Type Arterial; HCO3 ABG 29.4 mmol/L (22-26); Oxygen Device ROOM AIR; PO2 ABG 58.8 mmHg (80.0-100.0); PO2 FiO2 Ratio Arterial Blood 0
[2023-02-25] MEDS: iohexol 350 mg/mL 500 mL Btl (per mL) IV (15:28)
[2023-02-25 16:18] LABS: INR 1.55 (0.8-1.2)
[2023-02-25] MEDS: azithromycin 500 MG in sodium chloride 0.9% 250 ML 250 MG IV (16:21)
[2023-02-25 16:27] LABS: Alcohol Level < 10 mg/dL (0-10)
--- NOTE | 2023-02-25 16:55 | PM.CONSULT ---
Providers/Reason For Consult Consulting Physician/Specialty*: Cardiovascular medicine Reason for Consult*: Abnormal echo Requesting Physician: Hospitalist Attending Physician: Delfino Tripp MD Primary Care Provider: Shannon Merchant APN History of Present Illness History of Present Illness José Collier is a 67 year old male who was admitted to the hospital recently with shortness of breath. He was seen in the emergency room here several days ago with shortness of breath and was treated for a COPD exacerbation and bronchitis. Few days later he went to the emergency room at [place] and was diagnosed with pneumonia. He been treated with steroids and antibiotics. He then has developed bloody sputum, loss of appetite and came back to the emergency room here yesterday. He was admitted for weakness and shortness of breath and COPD exacerbation. On the first of this month he had a CTA of his chest which showed cardiomegaly and scarring and granulomatous changes of his lungs with hyperexpansion, COPD and lymphadenopathy. He received 77 mL of contrast for that. Today he received an abdomen and pelvis CT and received 100 mL of contrast with that scan. That scan reveals a large gastric ulcer. Apparently there is a plan for endoscopy for tomorrow. Is a part of his workup he had an echocardiogram which I read earlier today. It reveals an ejection fraction of 10% with global hypokinesis and a pulmonary artery pressure of 50 mmHg. Otherwise he has hyperbilirubinemia with total bilirubin of 1.7, prothrombin time of 19 and an INR of 1.5. His transaminases are elevated with an AST of 231 and an ALT of 664. His troponins are basically -32, 28 and 24. His EKG shows sinus tachycardia with left ventricular hypertrophy and repolarization changes. He is not a frequent flyer to a doctor. He has oxygen dependent COPD and is a smoker since he was a kid. He is apparently never had a myocardial infarction. He says that he has had congestive heart . Review of Systems Narrative: He denies any positive review of systems Medications/Allergies Home Medications Medication Instructions Recorded Confirmed Last Taken Type albuterol sulfate 90 mcg/actuation 1 inh inhalation TID PRN shortness 10/13/22 02/25/23 Unknown Rx aerosol inhaler (ProAir HFA) of breath #18 grams celecoxib 200 mg capsule (Celebrex) 200 mg PO DAILY #30 caps 10/13/22 02/25/23 02/24/23 Rx ergocalciferol (vitamin D2) 1,250 See Rx Instructions .Route 10/13/22 02/25/23 02/18/23 Rx mcg (50,000 unit) capsule .COMPLEX #4 caps albuterol sulfate 2.5 mg/3 mL See Rx Instructions .Route 02/12/23 02/25/23 Unknown Rx (0.083 %) solution for nebulization .COMPLEX #180 mL promethazine-DM 6.25 mg-15 mg/5 mL 5 - 10 ml PO Q6H PRN cough 14 days 02/12/23 02/25/23 Unknown Rx oral syrup #473 mL amoxicillin 875 mg-potassium 1 tab PO BID 02/25/23 02/25/23 02/24/23 History clavulanate 125 mg tablet famotidine 20 mg tablet 20 mg PO BID 02/25/23 02/25/23 02/24/23 History fluticasone 500 mcg-salmeterol 50 1 inh inhalation BID 02/25/23 02/25/23 02/24/23 History mcg/dose blistr powdr for inhalation (Advair Diskus) fluticasone propionate 50 1 spray intranasal DAILY 02/25/23 02/25/23 02/24/23 History mcg/actuation nasal spray,suspension ipratropium bromide 17 2 inh inhalation QID 02/25/23 02/25/23 02/24/23 History mcg/actuation HFA aerosol inhaler (Atrovent HFA) lisinopril 5 mg tablet 5 mg PO DAILY 02/25/23 02/25/23 02/24/23 History Allergies Allergy/AdvReac Type Severity Reaction Status Date / Time No Known Allergies Allergy Verified 02/25/23 02:03 Current Medications Generic Name Dose Route Start Last Admin Trade Name Freq PRN Reason Stop Dose Admin Acetaminophen 500 mg 02/25/23 04:50 02/25/23 09:28 Acetaminophen 500 Mg Tablet PO 500 mg Q4H PRN Administration fever Albuterol/Ipratropium 3 ml 02/25/23 15:00 02/25/23 15:06 Ipratropium-Albuterol 3 Ml Neb INHALATION 3 ml Q6H CIRILO Administration Benzonatate 100 mg 02/25/23 10:07 02/25/23 10:36 Benzonatate 100 Mg Capsule PO 100 mg TID PRN Administration COUGH Ceftriaxone Sodium 1,000 mg/ 50 mls @ 100 mls/hr 02/25/23 09:00 02/25/23 10:36 Sodium Chloride IV Infused DAILY CIRILO Infusion Protocol Azithromycin 500 mg/ Sodium 250 mls @ 250 mls/hr 02/25/23 14:45 02/25/23 16:21 Chloride IV 250 mls/hr Q24H CIRILO Administration Protocol Methylprednisolone Sodium Succinate 40 mg 02/25/23 05:00 02/25/23 16:22 Methylprednisolone Sod Succ 40 Mg/Ml Inj IVP 40 mg Q12H CIRILO Administration Potassium Chloride 40 meq 02/25/23 09:00 02/25/23 09:28 Potassium Chloride Er 20 Meq Tablet PO 40 meq DAILY CIRILO Administration Senna/Docusate Sodium 1 tab 02/25/23 09:00 02/25/23 09:28 Sennosides-Docusate Tablet PO 1 tab DAILY CIRILO Administration PFSH Acute PFSH: Medical History (Updated 02/25/23 @ 17:02 by Gustavo Whittington MD) Pulmonary HTN Tobacco abuse Gastric ulcer Left ventricular dysfunction COPD exacerbation Nausea & vomiting Lower respiratory infection Environmental and seasonal allergies Fatigue Hypertension screen Medication management Vitamin D deficiency Left ankle pain Left knee pain Mild acid reflux COPD (chronic obstructive pulmonary disease) Anxiety Hypercholesterolemia Surgical History Status post bladder repair Status post lobectomy of lung Family History Other CAD (coronary artery disease) Cancer Hyperlipidemia Hypertension Social History Smoking and tobacco/nicotine status: current every day tobacco/nicotine user Alcohol intake: former Substance/Drug Use: former Vitals/I&O/Wt Last Vital Signs Temp 97.7 F 02/25/23 12:00 Pulse 100 02/25/23 15:09 Resp 16 02/25/23 15:09 BP 120/81 02/25/23 12:00 Pulse Ox 90 02/25/23 15:09 O2 Del Method Room Air 02/25/23 15:09 O2 Flow Rate 1 02/25/23 04:18 02/25/23 02/25/23 02/25/23 06:59 14:59 22:59 Intake Total 770 / 770 Output Total 250 / 250 Balance 520 / 520 Weight last 48 hrs Weight 110 lb 14.4 oz Weight 120 lb Physical Exam Narrative: GENERAL: In general he is thin, cachectic weighing about 130 pounds and looks much older than his stated age HEENT: Exam within normal limits. NECK: Supple without jugular vein distention. The carotid upstroke is normal without bruits. BACK: Exam normal. LUNGS: Clear. HEART: Regular rate and rhythm. Tachycardia. There are no murmurs but there is an S3. ABDOMEN: Benign without organomegaly or tenderness. EXTREMITIES: No edema. NEUROLOGIC: Exam normal. SKIN: Unremarkable. Data 02/25/23 02:22 02/25/23 02:22 Micro: Microbiology 02/25/23 15:42 Blood Culture - Preliminary Blood SPECIMEN COLLECTED 02/25/23 15:38 Blood Culture - Preliminary Blood SPECIMEN COLLECTED A&P Assessment and plan (1) Hyperbilirubinemia: (2) Transaminitis: (3) Weight loss: (4) Anorexia: (5) Muscle wasting: (6) Physical deconditioning: (7) Protein calorie malnutrition: (8) Pneumonia: (9) Acute CHF (congestive heart failure): (10) Nausea & vomiting: (11) Fatigue: Qualifiers: Fatigue type: unspecified Qualified Code(s): R53.83 - Other fatigue (12) Left ventricular dysfunction: (13) COPD exacerbation: (14) COPD (chronic obstructive pulmonary disease): Qualifiers: COPD type: unspecified COPD Qualified Code(s): J44.9 - Chronic obstructive pulmonary disease, unspecified (15) Gastric ulcer: (16) Tobacco abuse: (17) Pulmonary HTN: Plan 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 Looks nonischemic by echo. At some point he will need an ischemia workup but that does not need to be done now. He has more pressing problems such as the status of his gastrointestinal tract to include the ulcer and his liver function abnormalities. He seems like he could very well have an occult malignancy somewhere. At this point I am going to wait on the workup of the ulcer and other items before proceeding with any kind of cardiac testing. We may be able to get by with a stress test rather than angiography. He has had too much contrast right now anyway. We will follow along. Consult Attestations Medical Necessity Statement: Hospitalization for workup of the above-mentioned medical problems and High Time for a total of 90 minutes, includes reviewing past or interval history, examining/interviewing patient, placing orders, counseling patient/family/other support, updating patient/family/other support, discussing plan of care with staff, communicating with other healthcare providers and documenting encounter Diagnoses Hyperbilirubinemia E80.6 Transaminitis R74.01 Weight loss R63.4 Anorexia R63.0 Muscle wasting M62.50 Physical deconditioning R53.81 Protein calorie malnutrition E46 Pneumonia J18.9 Acute CHF (congestive heart failure) I50.9 Nausea & vomiting R11.2 Fatigue, unspecified type R53.83 Fatigue type: unspecified Left ventricular dysfunction I51.9 COPD exacerbation J44.1 Chronic obstructive pulmonary disease, unspecified COPD type J44.9 COPD type: unspecified COPD Gastric ulcer K25.9 Tobacco abuse Z72.0 Pulmonary HTN I27.20
--- NOTE | 2023-02-25 17:13 | P.CONIM_ITS ---
Providers/Reason For Consult 2 Consulting Physician/Specialty*: Dr. Rogelio Leal, DO/General surgery Reason for Consult*: Abdominal pain Attending Physician: Trinidad Valente MD Primary Care Provider: Shannon Merchant APN History of Present Illness History of Present Illness José Collier is a 67 year old male who presented to the hospital with abdominal pain. HPI and review of systems are limited secondary to patient screaming uncontrollably. If I even attempt to touch his abdomen he screams loudly as this can and squeezes his abdomen. CT abdomen pelvis showed possible gastric ulcer. General surgery was consulted for possible EGD Review of Systems 2 General: Reports: ROS unobtainable due to mental status Medications/Allergies Home Medications Medication Instructions Recorded Confirmed Last Taken Type albuterol sulfate 90 mcg/actuation 1 inh inhalation TID PRN shortness 10/13/22 02/25/23 Unknown Rx aerosol inhaler (ProAir HFA) of breath #18 grams celecoxib 200 mg capsule (Celebrex) 200 mg PO DAILY #30 caps 10/13/22 02/25/23 02/24/23 Rx ergocalciferol (vitamin D2) 1,250 See Rx Instructions .Route 10/13/22 02/25/23 02/18/23 Rx mcg (50,000 unit) capsule .COMPLEX #4 caps albuterol sulfate 2.5 mg/3 mL See Rx Instructions .Route 02/12/23 02/25/23 Unknown Rx (0.083 %) solution for nebulization .COMPLEX #180 mL promethazine-DM 6.25 mg-15 mg/5 mL 5 - 10 ml PO Q6H PRN cough 14 days 02/12/23 02/25/23 Unknown Rx oral syrup #473 mL amoxicillin 875 mg-potassium 1 tab PO BID 02/25/23 02/25/23 02/24/23 History clavulanate 125 mg tablet famotidine 20 mg tablet 20 mg PO BID 02/25/23 02/25/23 02/24/23 History fluticasone 500 mcg-salmeterol 50 1 inh inhalation BID 02/25/23 02/25/23 02/24/23 History mcg/dose blistr powdr for inhalation (Advair Diskus) fluticasone propionate 50 1 spray intranasal DAILY 02/25/23 02/25/23 02/24/23 History mcg/actuation nasal spray,suspension ipratropium bromide 17 2 inh inhalation QID 02/25/23 02/25/23 02/24/23 History mcg/actuation HFA aerosol inhaler (Atrovent HFA) lisinopril 5 mg tablet 5 mg PO DAILY 02/25/23 02/25/23 02/24/23 History Allergies Allergy/AdvReac Type Severity Reaction Status Date / Time No Known Allergies Allergy Verified 02/25/23 02:03 Current Medications Generic Name Dose Route Start Last Admin Trade Name Freq PRN Reason Stop Dose Admin Acetaminophen 500 mg 02/25/23 04:50 02/25/23 09:28 Acetaminophen 500 Mg Tablet PO 500 mg Q4H PRN Administration fever Albuterol/Ipratropium 3 ml 02/25/23 15:00 02/26/23 08:34 Ipratropium-Albuterol 3 Ml Neb INHALATION 3 ml Q6H CIRILO Administration Atorvastatin Calcium 40 mg 02/25/23 21:00 02/25/23 20:16 Atorvastatin 40 Mg Tablet PO 40 mg BEDTIME CIRILO Administration Benzonatate 100 mg 02/25/23 10:07 02/25/23 10:36 Benzonatate 100 Mg Capsule PO 100 mg TID PRN Administration COUGH Budesonide 0.5 mg 02/25/23 20:00 02/26/23 08:34 Budesonide 0.5 Mg/2 Ml Neb INHALATION 0.5 mg BID.RESPIRATORY CIRILO Administration Ceftriaxone Sodium 1,000 mg/ 50 mls @ 100 mls/hr 02/25/23 09:00 02/26/23 10:13 Sodium Chloride IV Infused DAILY CIRILO Infusion Protocol Azithromycin 500 mg/ Sodium 250 mls @ 250 mls/hr 02/25/23 14:45 02/25/23 18:06 Chloride IV Infused Q24H CIRILO Infusion Protocol Sodium Chloride 1,000 mls @ 30 mls/hr 02/26/23 11:15 02/26/23 12:02 Sodium Chloride 0.9% IV 02/27/23 11:14 30 mls/hr .Q24H CIRILO Administration Metoclopramide HCl 5 mg 02/25/23 17:53 02/25/23 18:35 Metoclopramide 5 Mg/Ml Sdv 2 Ml IVP 5 mg Q6H PRN Administration NAUSEA AND VOMITING Morphine Sulfate 2 mg 12/10/23 17:54 02/26/23 03:02 Morphine 4 Mg/Ml Sdv 1 Ml IVP 2 mg Q4H PRN Administration SEVERE PAIN Pantoprazole Sodium 40 mg 02/25/23 17:51 02/26/23 05:48 Pantoprazole 40 Mg Sdv IVP 40 mg Q12H CIRILO Administration Sucralfate 1 gm 02/25/23 17:51 02/26/23 05:48 Sucralfate 1 Gm/10 Ml Oral Liq Udc PO 1 gm Q6H CIRILO Administration PFSH Acute 2 PFSH: Medical History Pulmonary HTN Tobacco abuse Gastric ulcer Left ventricular dysfunction COPD exacerbation Nausea & vomiting Lower respiratory infection Environmental and seasonal allergies Fatigue Hypertension screen Medication management Vitamin D deficiency Left ankle pain Left knee pain Mild acid reflux COPD (chronic obstructive pulmonary disease) Anxiety Hypercholesterolemia Surgical History Status post bladder repair Status post lobectomy of lung Family History Other CAD (coronary artery disease) Cancer Hyperlipidemia Hypertension Social History Smoking and tobacco/nicotine status: current every day tobacco/nicotine user Alcohol intake: former Substance/Drug Use: former Vitals/I&O/Wt Last Vital Signs Temp 98.8 F 02/26/23 00:45 Pulse 108 H 02/26/23 11:25 Resp 18 02/26/23 11:15 BP 123/87 02/26/23 08:00 Pulse Ox 98 02/26/23 11:15 O2 Del Method Nasal Cannula 02/26/23 11:15 O2 Flow Rate 2 02/26/23 11:15 02/25/23 02/26/23 02/26/23 22:59 06:59 14:59 Intake Total 250 / 1020 218 / 1238 50 / 50 Output Total 400 / 650 Balance 250 / 770 -182 / 588 50 / 50 Weight last 48 hrs Weight 110 lb Weight 110 lb 14.4 oz Weight 120 lb Physical Exam 2 Narrative: General : Patient is well developed , patient is screaming and uncooperative. When I mentioned I was going to give him Dilaudid his pain seem to go away and he definitely stopped screaming Head : Normal cephalic, a-traumatic. Ears : Pinnae and external canal are normal. Hearing is normal. Eyes : PERRLA, Sclera and injection are normal. No conjunctival discharge. Nose : Mucous membranes are without erythema. Throat : buccal mucosa is normal, gums are without significant recession or hypertrophy. Lungs : Equal chest rise bilaterally, no use of accessory muscles, trachea is midline. Cor : Rate and rhythm are normal. Abdomen : Soft, ND, patient is screaming when I attempt to touch his abdomen, I believe this is fictitious. When I was able to talk she does not seem to have much tenderness Extremities : No edema, no cyanosis or clubbing, dorsalis pedis pulses are present bilaterally, non-tender to palpation of calves. Upper extremities are normal bilaterally. Back : non-tender to palpation, no CVA tenderness. Neuro : CN II - XII intact, Upper and lower extremities have equal and full strength Data 02/26/23 03:05 02/26/23 03:05 Micro: Microbiology 02/25/23 15:42 Blood Culture - Preliminary Blood SPECIMEN COLLECTED 02/25/23 15:38 Blood Culture - Preliminary Blood SPECIMEN COLLECTED A&P Assessment and plan (1) Gastric ulcer: Plan Possible gastric ulcer seen on CT EGD tomorrow The risks and benefits of the procedure, including bleeding, infection, intestinal perforation requiring surgery, missed lesion were explained to the patient. The patient is understanding of the risks and wishes to proceed. Coding Level of Care Code 02861 Diagnoses Gastric ulcer K25.9
[2023-02-25] MEDS: morphine 4 mg/mL SDV 1 mL 1 MG IVP (17:55)
[2023-02-25 18:18] LABS: INR 1.39 (0.8-1.2)
[2023-02-25] MEDS: pantoprazole 40 mg SDV IVP (18:34)
[2023-02-25] MEDS: metoclopramide 5 mg/mL SDV 2 mL IVP (18:35)
[2023-02-25] MEDS: sucralfate 1 gm/10 mL Oral Liq UDC PO ×2 (18:35→23:10)
--- NOTE | 2023-02-25 18:45 | PC.NURSE ---
REceived patient from [facility] staff at 1730. Patient is alert to person, place, time, and situation. BP: 87/69, HR: 113, RR: 24, Temp: 98.5. Patient complains of severe pain. 10/10 to the stomach. Patient is crying and screaming in pain asking for his sister. NUrse administered morphine and zofran which provided no relief, reglan was then administered and provided relief. New IV started to righ forearm and new IV to the left AC.
[2023-02-25 18:49] LABS: Basophils % 0.1 %; Hematocrit 42.8 % (37-53); Lymphocytes # 0.6 10^3/uL (0.8-4.8); Lymphocytes % 4.5 %; Mean Corpuscular HGB Conc 32.7 g/dL (30-55); Mean Corpuscular Hemoglobin 28.2 pg (27-33); Mean Corpuscular Volume 86.1 fl (82-101); Mean Platelet Volume 9.7 fL (7.4-10.4); Monocytes # 0.3 10^3/uL (0.2-0.9); Neutrophils # 11.73 10^3/uL (1.8-7.7); Neutrophils % 92.5 %; Nucleated Red Blood Cells # 0.1 /100WBC; Nucleated Red Blood Cells % 0.8 %; Platelet Count 176 10^3/cmm (157-399); Red Blood Count 4.97 10^6/uL (3.85-5.65); Red Cell Distribution Width 15.6 % (12.1-15.1); White Blood Count 12.67 10^3/uL (3.29-11.43)
--- NOTE | 2023-02-25 18:50 | PC.NURSE ---
SHift SUmary: Patient only arrived in ICU about 2 hours ago. Uneventful. Patient came hypotensive, tachycardic, complaining of severe 10/10 abdominal pain which was relieved with zofran, reglan, and morphine. Suspicion for bleeding ulcer, fresh frozen plasma has been ordered and the H&H and type/screen is pending in lab at this time. At this time HR is 100, SPO2: 97%, BP: 101/75, RR 19. Dr mesa wants to avoid IV fluids if possible due to ejection fraction of 10%. Fresh frozen plasma has been ordered.
--- NOTE | 2023-02-25 19:15 | PC.NURSE ---
Nurse attemped to call family to alert them to Status change. Sister Lis at [phone], unidentified person answer's as this is [place] s can i take you order , then there is laughing in the background and no one comes back to the phone. Nurse attempted to call other Sister Irma at [phone] but the number is not in service.
[2023-02-25] MEDS: budesonide 0.5 mg/2 mL Neb INHALATION (19:48)
[2023-02-25] MEDS: atorvastatin 40 mg Tablet PO (20:16)
[2023-02-25 22:29] LABS: Hematocrit 40.3 % (37-53)
[2023-02-26] VITALS (107 sets, daily range): BP systolic 88–130; BP diastolic 55–97; PULSE 96–126; RESP 12–23; TEMP 36.8–37.1; O2SAT 86–98
[2023-02-26 01:29] LABS: Amphetamines Screen Urine Negative (Negative); Barbiturates Screen Urine Negative (Negative); Benzodiazepines Screen Urine Negative (Negative); Cocaine Screen Urine Negative (Negative); Opiate Screen Urine Positive (Negative); PCP Screen Urine Negative (Negative); THC Screen Urine Positive (Negative)
[2023-02-26] MEDS: ipratropium-albuterol 3 mL Neb INHALATION ×4 (02:13→13:46)
[2023-02-26] MEDS: morphine 4 mg/mL SDV 1 mL 2 MG IVP (03:02)
[2023-02-26 05:35] LABS: Basophils % 0.1 %; Hematocrit 40.7 % (37-53); Lymphocytes # 0.5 10^3/uL (0.8-4.8); Lymphocytes % 3.5 %; Mean Corpuscular HGB Conc 32.4 g/dL (30-55); Mean Corpuscular Volume 86.2 fl (82-101); Mean Platelet Volume 10.6 fL (7.4-10.4); Monocytes # 0.5 10^3/uL (0.2-0.9); Monocytes % 3.8 %; Neutrophils # 12.94 10^3/uL (1.8-7.7); Neutrophils % 91.7 %; Nucleated Red Blood Cells # 0.1 /100WBC; Nucleated Red Blood Cells % 0.6 %; Platelet Count 170 10^3/cmm (157-399); Red Blood Count 4.72 10^6/uL (3.85-5.65); Red Cell Distribution Width 15.3 % (12.1-15.1); White Blood Count 14.11 10^3/uL (3.29-11.43)
[2023-02-26] MEDS: pantoprazole 40 mg SDV IVP ×2 (05:48→16:56)
[2023-02-26] MEDS: sucralfate 1 gm/10 mL Oral Liq UDC PO ×2 (05:48→16:56)
[2023-02-26 06:00] LABS: Blood Urea Nitrogen 33 mg/dL (8-23); Calcium 8.3 mg/dL (8.5-10.5); Carbon Dioxide 28 mmol/L (22-29); Chloride 100 mmol/L (98-107); Glomerular Filtration Rate 84.2 mL/min (90-130); Glucose 116 mg/dL (65-115); Osmolality Calculated 294 mOsm/kg (285-295); Sodium 138 mmol/L (136-145)
[2023-02-26] MEDS: budesonide 0.5 mg/2 mL Neb INHALATION ×2 (08:34→19:46)
--- NOTE | 2023-02-26 09:02 | P.PN_ITS ---
Subjective 2 Subjective: Patient was transferred down to the ICU yesterday. This morning apparently he was very unhappy became angry and started screaming and cursing wanting food and something to drink. As I visit with him he seems calm and down. No chest pain. Vitals/I&O/Wt Last Vital Signs Temp 98.8 F 02/26/23 00:45 Pulse 106 H 02/26/23 08:35 Resp 19 H 02/26/23 08:35 BP 123/87 02/26/23 08:00 Pulse Ox 96 02/26/23 08:35 O2 Del Method Nasal Cannula 02/26/23 08:35 O2 Flow Rate 2 02/26/23 08:35 02/25/23 02/26/23 02/26/23 22:59 06:59 14:59 Intake Total 250 / 1020 218 / 1238 0 / 0 Output Total 400 / 650 Balance 250 / 770 -182 / 588 0 / 0 Weight last 48 hrs Weight 110 lb Weight 110 lb 14.4 oz Weight 120 lb Physical Exam 2 Narrative: GENERAL: In general he looks comfortable HEENT: Exam within normal limits. NECK: Supple without jugular vein distention. The carotid upstroke is normal without bruits. BACK: Exam normal. LUNGS: Clear. HEART: Regular rate and rhythm. ABDOMEN: Benign without organomegaly or tenderness. EXTREMITIES: No edema. NEUROLOGIC: Exam normal. SKIN: Unremarkable. Data 02/26/23 03:05 02/26/23 03:05 Micro: Microbiology 02/25/23 15:42 Blood Culture - Preliminary Blood SPECIMEN COLLECTED 02/25/23 15:38 Blood Culture - Preliminary Blood SPECIMEN COLLECTED A&P Assessment and plan (1) Pulmonary HTN: (2) Tobacco abuse: (3) Gastric ulcer: (4) Left ventricular dysfunction: (5) Hyperbilirubinemia: (6) Transaminitis: (7) Weight loss: (8) Anorexia: (9) Muscle wasting: (10) Physical deconditioning: (11) Protein calorie malnutrition: (12) Hemoptysis: (13) Acute CHF (congestive heart failure): (14) COPD exacerbation: Plan Despite his very low ejection fraction, he is stable. He is not in heart failure at this time. Once we get some clarification on the ulcer we will figure out what to do about an ischemia workup. At this point I will probably be inclined to start with a stress test as opposed to angiography. Once endoscopy is completed he will need to be started on an afterload reducing agent, Aldactone and carvedilol if he can tolerate all of those. Attestations 2 Medical Necessity Statement*: Admission for management of above-mentioned medical problems. and Moderate Time for a total of 35 minutes, includes reviewing past or interval history, examining/interviewing patient, counseling patient/family/other support, updating patient/family/other support and documenting encounter Diagnoses Pulmonary HTN I27.20 Tobacco abuse Z72.0 Gastric ulcer K25.9 Left ventricular dysfunction I51.9 Hyperbilirubinemia E80.6 Transaminitis R74.01 Weight loss R63.4 Anorexia R63.0 Muscle wasting M62.50 Physical deconditioning R53.81 Protein calorie malnutrition E46 Hemoptysis R04.2 Acute CHF (congestive heart failure) I50.9 COPD exacerbation J44.1
[2023-02-26] MEDS: cefTRIAXone 1,000 MG in sodium chloride 0.9% (plus) 50 ML 100 MG IV (09:38)
--- NOTE | 2023-02-26 11:10 | P.ANESASSM_ITS ---
Pre-Anesthetic Assessment Height/Weight: Height 1.7 m Weight 49.895 kg Temp Pulse Resp BP Pulse Ox O2 Del Method O2 Flow Rate 98.8 F 106 H 19 H 123/87 96 Nasal Cannula 2 02/26/23 00:45 02/26/23 08:35 02/26/23 08:35 02/26/23 08:00 02/26/23 08:35 02/26/23 08:35 02/26/23 08:35 Operation Date: 02/26/23 10:30 Proposed Procedures p EGD(Not Applicable) - Rogelio Leal DO Familial anesthetic complications: none Was Beta Perry taken within 24 hours: Yes Was Clonidine taken within 24 hours: N/A Last intake: > 8 hrs, denies any nausea, no vomiting since admission per nurse and patient account Social Tobacco and No alcohol former Etoh - i quit drinking Exam alert, oriented x 3, clear to auscultation bilaterally and regular rate & rhythm Airway Mallampati: Class II Dentition: other (poor dentition) Comments: Comments: full palacio Pulmonary Asthma and Chronic Obstructive Pulmonary Disease (on O2) pneumonia CV/HEM Congestive Heart Failure (EF 10%), Hypertension and Myocardial Infarction (STEMI) Pulm HTN GI Gastroesophageal Reflux Disease gastic ulcer seen on CT, possible hematemesis vs hemoptysis Metabolic cachexia Anesthetic Plan ASA status: 4 Anesthesia: MAC Risk of > 500 ml blood loss (7ml/kg in children): No Medications/Allergies Home Medications Medication Instructions Recorded Confirmed Last Taken Type albuterol sulfate 90 mcg/actuation 1 inh inhalation TID PRN shortness 10/13/22 02/25/23 Unknown Rx aerosol inhaler (ProAir HFA) of breath #18 grams celecoxib 200 mg capsule (Celebrex) 200 mg PO DAILY #30 caps 10/13/22 02/25/23 02/24/23 Rx ergocalciferol (vitamin D2) 1,250 See Rx Instructions .Route 10/13/22 02/25/23 02/18/23 Rx mcg (50,000 unit) capsule .COMPLEX #4 caps albuterol sulfate 2.5 mg/3 mL See Rx Instructions .Route 02/12/23 02/25/23 Unknown Rx (0.083 %) solution for nebulization .COMPLEX #180 mL promethazine-DM 6.25 mg-15 mg/5 mL 5 - 10 ml PO Q6H PRN cough 14 days 02/12/23 02/25/23 Unknown Rx oral syrup #473 mL amoxicillin 875 mg-potassium 1 tab PO BID 02/25/23 02/25/23 02/24/23 History clavulanate 125 mg tablet famotidine 20 mg tablet 20 mg PO BID 02/25/23 02/25/23 02/24/23 History fluticasone 500 mcg-salmeterol 50 1 inh inhalation BID 02/25/23 02/25/23 02/24/23 History mcg/dose blistr powdr for inhalation (Advair Diskus) fluticasone propionate 50 1 spray intranasal DAILY 02/25/23 02/25/23 02/24/23 History mcg/actuation nasal spray,suspension ipratropium bromide 17 2 inh inhalation QID 02/25/23 02/25/23 02/24/23 History mcg/actuation HFA aerosol inhaler (Atrovent HFA) lisinopril 5 mg tablet 5 mg PO DAILY 02/25/23 02/25/23 02/24/23 History Allergies Allergy/AdvReac Type Severity Reaction Status Date / Time No Known Allergies Allergy Verified 02/25/23 02:03 Current Medications Generic Name Dose Route Start Last Admin Trade Name Freq PRN Reason Stop Dose Admin Acetaminophen 500 mg 02/25/23 04:50 02/25/23 09:28 Acetaminophen 500 Mg Tablet PO 500 mg Q4H PRN Administration fever Albuterol/Ipratropium 3 ml 02/25/23 15:00 02/26/23 08:34 Ipratropium-Albuterol 3 Ml Neb INHALATION 3 ml Q6H CIRILO Administration Atorvastatin Calcium 40 mg 02/25/23 21:00 02/25/23 20:16 Atorvastatin 40 Mg Tablet PO 40 mg BEDTIME CIRILO Administration Benzonatate 100 mg 02/25/23 10:07 02/25/23 10:36 Benzonatate 100 Mg Capsule PO 100 mg TID PRN Administration COUGH Budesonide 0.5 mg 02/25/23 20:00 02/26/23 08:34 Budesonide 0.5 Mg/2 Ml Neb INHALATION 0.5 mg BID.RESPIRATORY CIRILO Administration Ceftriaxone Sodium 1,000 mg/ 50 mls @ 100 mls/hr 02/25/23 09:00 02/26/23 10:13 Sodium Chloride IV Infused DAILY CIRILO Infusion Protocol Azithromycin 500 mg/ Sodium 250 mls @ 250 mls/hr 02/25/23 14:45 02/25/23 18:06 Chloride IV Infused Q24H CIRILO Infusion Protocol Metoclopramide HCl 5 mg 02/25/23 17:53 02/25/23 18:35 Metoclopramide 5 Mg/Ml Sdv 2 Ml IVP 5 mg Q6H PRN Administration NAUSEA AND VOMITING Morphine Sulfate 2 mg 02/25/23 17:54 02/26/23 03:02 Morphine 4 Mg/Ml Sdv 1 Ml IVP 2 mg Q4H PRN Administration SEVERE PAIN Pantoprazole Sodium 40 mg 02/25/23 17:51 02/26/23 05:48 Pantoprazole 40 Mg Sdv IVP 40 mg Q12H CIRILO Administration Sucralfate 1 gm 02/25/23 17:51 02/26/23 05:48 Sucralfate 1 Gm/10 Ml Oral Liq Udc PO 1 gm Q6H CIRILO Administration PFSH Anesthesia Medical History Pulmonary HTN Tobacco abuse Gastric ulcer Left ventricular dysfunction COPD exacerbation Nausea & vomiting Lower respiratory infection Environmental and seasonal allergies Fatigue Hypertension screen Medication management Vitamin D deficiency Left ankle pain Left knee pain Mild acid reflux COPD (chronic obstructive pulmonary disease) Anxiety Hypercholesterolemia Surgical History Status post bladder repair Status post lobectomy of lung Family History Other CAD (coronary artery disease) Cancer Hyperlipidemia Hypertension Social History Smoking and tobacco/nicotine status: current every day tobacco/nicotine user Alcohol intake: former Substance/Drug Use: former Data Anesthesia 02/26/23 03:05 02/26/23 03:05 Short CBC 02/25/23 02/25/23 02/25/23 Range/Units 02:22 17:45 18:27 WBC 14.14 H Cancelled 12.67 H (3.29-11.43) 10^3/uL Hgb 14.60 Cancelled 14.00 (11.27-16.99) g/dL Hct 44.6 Cancelled 42.8 (37-53) % MCV 85.8 Cancelled 86.1 (82-101) fl Plt Count 176 Cancelled 176 (157-399) 10^3/cmm Neut % (Auto) 83.6 Cancelled 92.5 % Neut # (Auto) 11.80 H Cancelled 11.73 H (1.8-7.7) 10^3/uL 02/25/23 02/26/23 Range/Units 22:15 03:05 WBC 14.11 H (3.29-11.43) 10^3/uL Hgb 13.30 13.20 (11.27-16.99) g/dL Hct 40.3 40.7 (37-53) % MCV 86.2 (82-101) fl Plt Count 170 (157-399) 10^3/cmm Neut % (Auto) 91.7 % Neut # (Auto) 12.94 H (1.8-7.7) 10^3/uL BMP 02/25/23 02/26/23 02:22 03:05 Sodium 134 L 138 Potassium 4.5 5.0 Chloride 95 L 100 Carbon Dioxide 28 28 BUN 29 H 33 H Creatinine 0.8 0.9 Glucose 121 H 116 H Calcium 8.7 8.3 L Cardiac Enzymes 02/25/23 02/25/23 02/25/23 Range/Units 02:22 04:38 08:10 Troponin T Baseline 32 H (0-15) ng/L Troponin T 120 Minute 28.87 H (0-15) ng/L Delta Troponin T -3.13 L (0-10) ABS# Troponin T Hi Sens 6Hr 24.05 H (0-15) ng/L Troponin T Hi Sens 6Hr Delta -7.95 L (0-12) ng/L NT-Pro-B Natriuret Pep 9025 H (0-125) pg/mL Liver Function 02/25/23 Range/Units 09:34 Total Bilirubin 1.7 H (0.15-1.2) mg/dL Direct Bilirubin 0.70 H (0.00-0.30) mg/dL GGT 142 H (8-61) U/L AST 231 H (0-40) U/L ALT 664 H (0-41) U/L Alkaline Phosphatase 115 (40-130) U/L Albumin 3.5 (3.5-5.2) g/dL Blood Bank 02/25/23 02/25/23 17:45 18:27 Blood Type Cancelled O Positive Rho(D) Type Cancelled Rh positive Antibody Screen Cancelled Negative Coags 02/25/23 02/25/23 02/25/23 02:22 05:19 08:10 ESR 1 PT INR D-Dimer 6.28 H C-Reactive Protein 28.4 H 02/25/23 02/25/23 02/25/23 09:34 15:38 17:45 ESR 1 PT 19.10 H 17.60 H INR 1.55 H 1.39 H D-Dimer C-Reactive Protein 02/26/23 03:05 ESR PT INR D-Dimer C-Reactive Protein 21.0 H ABG 02/25/23 15:05 Specimen Type Arterial Sample Site Brachial, right ABG pH 7.43 ABG pCO2 44.3 ABG pO2 58.8 L ABG PO2/FiO2 Ratio 0 ABG HCO3 29.4 H ABG Base Excess 4.3 H O2 Delivery Device Room air FiO2 21.0 Microbiology 02/25/23 15:42 Blood Culture - Preliminary Blood SPECIMEN COLLECTED 02/25/23 15:38 Blood Culture - Preliminary Blood SPECIMEN COLLECTED Cardiac Studies: 2 Echocardiogram 02/25/23
[2023-02-26] MEDS: sodium chloride 0.9% 1,000 ML 30 ML IV (12:02)
--- NOTE | 2023-02-26 12:16 | P.PN_ITS ---
Vitals/I&O/Wt Last Vital Signs Temp 98.8 F 02/26/23 00:45 Pulse 108 H 02/26/23 11:25 Resp 18 02/26/23 11:15 BP 123/87 02/26/23 08:00 Pulse Ox 98 02/26/23 11:15 O2 Del Method Nasal Cannula 02/26/23 11:15 O2 Flow Rate 2 02/26/23 11:15 02/25/23 02/26/23 02/26/23 22:59 06:59 14:59 Intake Total 250 / 1020 218 / 1238 50 / 50 Output Total 400 / 650 Balance 250 / 770 -182 / 588 50 / 50 Weight last 48 hrs Weight 110 lb Weight 110 lb 14.4 oz Weight 120 lb Data 02/26/23 03:05 02/26/23 03:05 Micro: Microbiology 02/25/23 15:42 Blood Culture - Preliminary Blood SPECIMEN COLLECTED 02/25/23 15:38 Blood Culture - Preliminary Blood SPECIMEN COLLECTED A&P Assessment and plan (1) Gastric ulcer: Plan Possible gastric ulcer seen on CT EGD The risks and benefits of the procedure, including bleeding, infection, intestinal perforation requiring surgery, missed lesion were explained to the patient. The patient is understanding of the risks and wishes to proceed. Attestations 2 Medical Necessity Statement*: Home Coding Level of Care Code Acute Code for Chg Fwd Diagnoses Gastric ulcer K25.9
[2023-02-26] MEDS: EPINEPHrine 1 mg/mL INJ XX (12:39)
--- NOTE | 2023-02-26 12:45 | ANE.PACU2 ---
Inpatient post-anesthesia follow up: Airway intact: Yes Vital signs: Temperature 98.8 F Pulse Rate 109 Respiratory Rate 18 Blood Pressure 123/87 Pulse Oximetry 94 Oxygen Delivery Me thod Nasal Cannula Oxygen Flow Rate 2 Fraction of Inspir ed Oxygen Hydration adequate: Yes Nausea and vomiting: No Pain level: 2
[2023-02-26] MEDS: azithromycin 500 MG in sodium chloride 0.9% 250 ML 250 MG IV (15:53)
--- NOTE | 2023-02-26 16:41 | ECG_ITS ---
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 Measurements Intervals [place] Rate: 125 P: 80 AR: 124 QRS: 21 QRSD: 113 T: 177 QT: 311 QTc: 448 Interpretive Statements SINUS TACHYCARDIA MODERATE INTRAVENTRICULAR CONDUCTION DELAY [110+ ms QRS DURATION] LEFT VENTRICULAR HYPERTROPHY ST DEVIATION AND MARKED T-WAVE ABNORMALITY, CONSIDER LATERAL ISCHEMIA [-0.5+ mV T-WAVE IN I/aVL/V5/V6] ST DEVIATION AND MODERATE T-WAVE ABNORMALITY, CONSIDER INFERIOR ISCHEMIA [-0.1+ mV T-WAVE IN II/aVF] Compared to ECG 02/25/2023 02:26:50 Short AR interval no longer present Left-axis deviation no longer present T-wave abnormality still present Possible ischemia still present Electronically Signed On 02-27-2023 8:17:08 SITE DAMAGE PREVENTION TECHNICIAN by Bharathi Hernandez M.D. [id number]
[2023-02-26] MEDS: methylPREDNISolone sod succ 40 mg/mL INJ IVP (16:50)
[2023-02-26] MEDS: levalbuterol 1.25 mg/3 mL Neb INHALATION ×3 (17:00→23:03)
--- NOTE | 2023-02-26 17:00 | CTR_ITS ---
PROCEDURE INFORMATION: Exam: CT Abdomen And Pelvis Without Contrast Exam date and time: 02/26/2023 5:22 PM Age: 67 years old Clinical indication: Abdominal pain; Generalized; Additional info: Post egd abdominal pain, concern for retroperitoneal hematoma or perforation. TECHNIQUE: Imaging protocol: Computed tomography of the abdomen and pelvis without contrast. Radiation optimization: All CT scans at this facility use at least one of these dose optimization techniques: automated exposure control; mA and/or kV adjustment per patient size (includes targeted exams where dose is matched to clinical indication); or iterative reconstruction. REPORTING DATA: Count of CT and Cardiac NM exams in prior 12 months: This patient has received 2 known CTs and 0 known cardiac nuclear medicine studies in the 12 months prior to the current study. COMPARISON: CTA chest dated February 17, 2023. RADIATION DOSE METRICS: Total DLP (mGy-cm): 302.68 FINDINGS: Heart: Borderline to mild cardiomegaly. Mediastinal space: Interval appearance of moderate thickening in the distal esophageal wall suggesting possible esophagitis. Liver: Normal. No mass. Gallbladder and bile ducts: Normal. No calcified stones. No ductal dilation. Pancreas: Normal. No ductal dilation. Spleen: Normal. No splenomegaly. Adrenal glands: Normal. No mass. Kidneys and ureters: See Vasculature finding. Stomach and bowel: Bowel wall thickening in the rectum consistent with mild proctitis. Dilated air-filled transverse colon and hepatic flexure with moderate retained feces in the ascending colon. Appendix: No evidence of appendicitis. Intraperitoneal space: Unremarkable. No free air. No significant fluid collection. Vasculature: Calcification of the abdominal aorta and/or iliac arteries consistent with atherosclerotic vessel disease. Small vessel arterial calcifications in the renal waldo bilaterally which are often associated with chronic renal failure. Lymph nodes: Stable right calcified hilar nodes and/or mediastinal nodes and/or lung nodules consistent with old granulomatous disease. Urinary bladder: 9 mm Hutch diverticulum in the left posterolateral urinary bladder wall. Axial series 3, image 65. 9 mm gastrohepatic ligament lymph node which may be reactive versus neoplastic. Reproductive: Unremarkable as visualized. Bones/joints: Unremarkable. No acute fracture. Soft tissues: Unremarkable. CT/CT abdomen pelvis wo con [id number] IMPRESSION: 1. Borderline to mild cardiomegaly. 2. Interval appearance of moderate thickening in the distal esophageal wall suggesting possible esophagitis. 3. 9 mm Hutch diverticulum in the left posterolateral urinary bladder wall. Axial series 3, image 65. 9 mm gastrohepatic ligament lymph node which may be reactive versus neoplastic. 4. Bowel wall thickening in the rectum consistent with mild proctitis. 5. Dilated air-filled transverse colon and hepatic flexure with moderate retained feces in the ascending colon. 6. No obvious pneumoperitoneum, peritoneal fluid or retroperitoneal hemorrhage.
--- NOTE | 2023-02-26 17:10 | XRR_ITS ---
PROCEDURE INFORMATION: Exam: XR Chest Exam date and time: 02/26/2023 6:59 PM Age: 67 years old Clinical indication: Shortness of breath; Additional info: SOB TECHNIQUE: Imaging protocol: Radiologic exam of the chest. Views: 1 view. COMPARISON: CT angio chest w abd pel w con 02/25/2023 3:21 PM FINDINGS: Lungs: Stable left calcified hilar nodes and/or mediastinal nodes and/or lung nodules consistent with old granulomatous disease. Mild peribronchial thickening and/or mild perihilar linear markings consistent with bronchitis and/or viral pneumonitis and/or reactive airway disease and/or atypical pulmonary interstitial edema. Stable COPD . Pleural spaces: Unremarkable. No pleural effusion. No pneumothorax. Heart/Mediastinum: Mild cardiomegaly. Bones/joints: Unremarkable. XR/XR chest 1V portable [id number] IMPRESSION: 1. Mild cardiomegaly. 2. Mild peribronchial thickening and/or mild perihilar linear markings consistent with bronchitis and/or viral pneumonitis and/or reactive airway disease and/or atypical pulmonary interstitial edema. 3. Stable COPD .
[2023-02-26] MEDS: pantoprazole 40 MG in sodium chloride 0.9% (plus) 100 ML 20 MG IV ×2 (17:12→20:57)
[2023-02-26 17:13] LABS: ABG PCO2 39.5 mmHg (35-45); Arterial Blood Gas Hematocrit 41.8 % (42-52); Base Excess ABG -0.4 mmol/L (-2.0-2.0); Blood Gas Allen Test Pos; Blood Gas Operator Identificat GD; Blood Gas Sample Site Radial, right; Blood Gas Sample Type Arterial; Carboxyhemoglobin 1.8 %THgb (0.4-20.1); HCO3 ABG 24.4 mmol/L (22-26); HGB O2 Sat 96.4 % (95-100); Ionized Calcium Level - ABG 1.1 mmol/L (1.1-1.4); Methemoglobin 0.5 % (0.4-1.5); Oxygen Device NC; Oxygen Saturation ABG 98.6; PO2 ABG 96.9 mmHg (80.0-100.0); PO2 FiO2 Ratio Arterial Blood 0; Potassium Level - ABG 5.2 mmol/L (3.5-5.0); Total Hemoglobin 13.6 g/dL (14-18)
--- NOTE | 2023-02-26 18:47 | ECG_ITS ---
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 Measurements Intervals [place] Rate: 120 P: 76 WI: 127 QRS: -3 QRSD: 112 T: 195 QT: 305 QTc: 433 Interpretive Statements SINUS TACHYCARDIA MODERATE INTRAVENTRICULAR CONDUCTION DELAY [110+ ms QRS DURATION] ST DEVIATION AND MARKED T-WAVE ABNORMALITY, CONSIDER LATERAL ISCHEMIA [-0.5+ mV T-WAVE IN I/aVL/V5/V6] ST DEVIATION AND MODERATE T-WAVE ABNORMALITY, CONSIDER INFERIOR ISCHEMIA [-0.1+ mV T-WAVE IN II/aVF] Compared to ECG 02/26/2023 16:45:07 No significant changes Electronically Signed On 02-27-2023 8:18:04 OBJECTS CONSERVATOR by Bharathi Hernandez M.D. [id number]
[2023-02-26 19:03] LABS: Troponin(5th) Baseline 34 ng/L (0-15)
[2023-02-26 19:08] LABS: Lactate (Lactic Acid level) 4.1 mmol/L (0.5-2.2)
[2023-02-26 19:12] LABS: NT Pro B Type Natriuretic Pept 11426 pg/mL (0-125)
[2023-02-26 19:43] LABS: Lactate Dehydrogenase 661 U/L (135-225)
[2023-02-26] MEDS: ipratropium 0.5 mg/2.5 mL Neb INHALATION ×2 (19:46→23:02)
[2023-02-26] MEDS: atorvastatin 40 mg Tablet PO (20:57)
[2023-02-26] MEDS: midodrine 5 mg TABLET PO (20:57)
[2023-02-26 21:30] LABS: Troponin 5 2HR 26.07 ng/L (0-15)
[2023-02-26 21:32] LABS: Troponin 5 2HR Delta -7.93 ABS# (0-10)
--- NOTE | 2023-02-26 22:30 | P.PN_ITS ---
Subjective 2 Subjective: The patient was seen s/p an EGD by the general surgeon, which showed gastritis with esophagitis, Folod's esophagus without dysplasia, a gastric ulcer and duodenitis. Biopsies were obtained from the antrum, the lower third of the esophagus, the gastric cardia, antrum, and second part of the duodenum. The patient had had something to drink, and was in a better movement. At the time that he was seen, he was watching the TV, and watching the meteorologist discussed the oncoming cold weather conditions. He became tearful that there are many people including children who did not have a home where they could stay warm and out of the cold weather conditions. He quickly complained of being dyspneic. He became tachycardic and hypotensive. Given that he just had an EGD, there was concern for bowel perforation, so a stat CT abdomen pelvis was repeated, a CXR was also ordered. He was started on a PPI drip. He was given a duoneb treatment w/ Xopenex. An ABG was ordered that was 7 point 4/44/58.8 on room air, so he was placed on 2L NC. His lactic acid was 4.1, and an LDH and Trop T series were ordered. An EKG was done that showed ST depressions in V5 and V6. He was also started on midodrine for his hypotension. Vitals/I&O/Wt Last Vital Signs Temp 98.3 F 02/26/23 19:48 Pulse 117 H 02/26/23 22:13 Resp 20 H 02/26/23 19:47 BP 123/87 02/26/23 08:00 Pulse Ox 96 02/26/23 19:47 O2 Del Method Nasal Cannula 02/26/23 19:47 O2 Flow Rate 2 02/26/23 19:47 02/26/23 02/26/23 02/26/23 06:59 14:59 22:59 Intake Total 218 / 1238 50 / 50 745 / 795 Output Total 400 / 650 400 / 400 Balance -182 / 588 50 / 50 345 / 395 Weight last 48 hrs Weight 49.895 kg Weight 50.303 kg Weight 54.431 kg Physical Exam 2 Const: GENERAL APPEARANCE: cooperative, in distress, disheveled, ill appearing, frail appearing and appears older than stated age; not comfortable NUTRITIONAL APPEARANCE: cachectic O RIENTATION/CONSCIOUSNESS: Yes awake, Yes oriented to person, Yes oriented to place and Yes oriented to time HENMT: COMMON NORMALS: normocephalic, atraumatic and external ears normal H EAD & SCALP: normocephalic and atraumatic EXTERNAL EAR: Yes external ears normal MOUTH: Normal oral and palatal mucosa present THROAT: posterior oropharynx normal Eye: COMMON NORMALS: Equal, round and reactive pupils present and conjunctivae normal CONJUNCTIVA: Yes conjunctivae normal PUPIL: Yes Equal, round and reactive pupils present EOM: No EOM abnormal Neck/C-Spine: COMMON NORMALS: Thyroid normal GENERAL: Yes normal visual inspection and Yes trachea midline THYROID: Thyroid normal CAROTIDS: No bruit OTHER: Difficult to appreciate carotid bruit given his respiratory distress. Lymph: LYMPHATIC: No lymphadenopathy Resp: OTHER: In respiratory distress, with use of accessory muscles. Diminished breath sounds in all lung gardner with bilateral expiratory wheezes. GI: OTHER: Positive diffuse tenderness to palpation, with rigidity guarding, and admission of rebound tenderness. Extremity: GENERAL: No clubbing, Yes cyanosis and No edema Neuro: SENSORIUM/ORIENTATION: Yes oriented to person, Yes oriented to place and Yes oriented to time CRANIAL NERVES: Yes CN normal except as noted S PEECH: speech normal MOTOR EXAM: 5/5 motor strength present throughout and Normal motor muscle tone present throughout Psych: COMMON NORMALS: Normal thought process present and speech normal A PPEARANCE: Yes unkempt and Yes disheveled ATTITUDE: Yes calm and Yes engaged ACTIVITY/MOTOR BEHAVIOR: Yes appropriate eye contact SPEECH: Yes normal speech MOOD & AFFECT: Yes sad and Yes tearful THOUGHT PROCESS: Normal thought process present THOUGHT CONTENT: Yes Normal thought content present ATTENTION/CONCENTRATION: Yes attention grossly intact Skin: COMMON NORMALS: no rashes or lesions noted GENERAL SKIN EXAM: no rashes or lesions noted Data 02/26/23 03:05 02/26/23 03:05 Micro: Microbiology 02/26/23 18:24 Blood Culture - Preliminary Blood SPECIMEN COLLECTED 02/26/23 18:20 Blood Culture - Preliminary Blood SPECIMEN COLLECTED 02/25/23 15:42 Blood Culture - Preliminary Blood NEGATIVE TO DATE 02/25/23 15:38 Blood Culture - Preliminary Blood NEGATIVE TO DATE A&P Assessment and plan (1) COPD exacerbation: (2) Acute on chronic HFrEF (heart failure with reduced ejection fraction): (3) Gastric ulcer: Qualifiers: Gastric ulcer chronicity: acute Gastric ulcer complication status: w ithout hemorrhage or perforation Qualified Code(s): K25.3 - Acute gastric ulcer without hemorrhage or perforation (4) Tobacco abuse: (5) Transaminitis: Plan Mr Collier is a 67yo man w/COPD and CHF, who presented to the ED on 02/25/2023 not on O2, for worsening dyspnea. Prior to this admission, he initially presented to his PCP's office w/ complaints of diarrhea, and episode of emesis, a cough and dyspnea. He was diagnosed with COPD exacerbation and viral gastroenteritis, and given 1 g of Rocephin Decadron 10 mg IM, & promethazine. He then presented on 02/16/2023, to [facility]'s ED, with complaints of 3 days of worsening dyspnea. He was diagnosed with COPD exacerbation. His CXR on 02/16/2023 showed cardiomegaly with trace L. Pleural effusion as well as areas of bilateral mid to lower lung atelectasis. It also showed COPD and a few lung opacities concerning for mild lymphadenopathy. He was discharged with 60 mg p.o. daily of prednisone and 7 days of doxycycline p.o. twice daily. He then presented for the second time to [facility]'s ED on 02/25/2023, with complaints of increased dyspnea and productive cough of bloody sputum as well as vomiting. His CXR on 02/25 was unchanged from 02/16. He was admitted for hemoptysis. On admission, a CTA chest abdomen and pelvis were ordered that showed an inflammed gastric ulcer in the posterior distal body of the stomach, mild fatty infiltration of the liver, and diffuse moderate gallbladder thickening, concerning for cystitis. The general surgeon, Dr. Leal was consulted. A TTE was also ordered, given that his BNP was highly elevated, but he did not look fluid overloaded. His TTE, done on 02/25/2023, showed an EF of 10% with global LV hypokinesis, moderately severe MV regurg, mild to moderate tricuspid valve regurg, and moderate pulmonary HTN with an RVSP of 50.2 mmHg. Based on these new revelations, the assistant produce manager was also consulted. 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 Biopsies were obtained from the antrum, the lower third of the esophagus, the gastric cardia, antrum, and second part of the duodenum. Neuro/Psych Cardio #Hypotension - Trend Trop T. Start Midodrine 5mg TID. #Acute on chronic HFrEF: EF of 10%. #Pulmonary HTN - Cardiology following. - F/u BNP ordered for the AM. Pulm #SIRS: due his COPD. His leukocytosis may also be due to the steroids #Acute COPD exacerbation: D/c'ed Dexamethasone. Started IV Soludmedrol 60mg daily. D/c'ed duonebs and switched to Xopenex q4h and ipratropium q4h. #Acute hypoxic respiratory failure: Initiate O2 therapy GI #Posterior gastric ulcer #Gastritis w/ Esophagitis #Flood's Esophagus #Duodenitis #Abdominal pain s/p EGD - Restart PPI drip. Order stat CT abd/pelvis w/o contrast, lactate to r/o perforation - Advance diet per Gen Surg #Severe Protein Calorie Malnutrition: Consult senior javascript developer to recommend supplements Renal - Monitor renal fxn. ID BCx negative. Continue Azithromycin IV and Ceftriaxone IV Heme MSK - PT/OT Derm: No acute issues at this time DVT ppx: Lovenox Attestations 2 Medical Necessity Statement*: Needs to remain hospitalized because he is hemodynamically unstable. Coding Level of Care Code Acute Code for Chg Fwd Diagnoses COPD exacerbation J44.1 Acute on chronic HFrEF (heart failure with reduced ejection fraction) I50.23 Acute gastric ulcer without hemorrhage or perforation K25.3 Gastric ulcer chronicity: acute Gastric ulcer complication status: without hemorrhage or perforation Tobacco abuse Z72.0 Transaminitis R74.01
--- NOTE | 2023-02-26 23:17 | ECG_ITS ---
[facility] Test Date: 2023-02-26 Pat Name: José Collier Department: Room: [facility] Gender: Male Alternative Education Teacher: : 1955 Requested By: Trinidad Valente Order Number: [id number] Reading MD: Bharathi Hernandez M.D. Measurements Intervals [place] Rate: 112 P: 84 [place]: 131 QRS: 2 QRSD: 110 T: 268 QT: 331 QTc: 452 Interpretive Statements SINUS TACHYCARDIA POSSIBLE LEFT ATRIAL ENLARGEMENT [-0.1mV P-WAVE IN V1/V2] ST DEVIATION AND MARKED T-WAVE ABNORMALITY, CONSIDER LATERAL ISCHEMIA [-0.5+ mV T-WAVE IN I/aVL/V5/V6] ST DEVIATION AND MODERATE T-WAVE ABNORMALITY, CONSIDER INFERIOR ISCHEMIA [-0.1+ mV T-WAVE IN II/aVF] Compared to ECG 02/26/2023 18:28:17 Intraventricular conduction delay no longer present T-wave abnormality still present Possible ischemia still present Electronically Signed On 02-27-2023 8:17:29 CODING [facility] by Bharathi Hernandez M.D. [id number]
[2023-02-27] VITALS (135 sets, daily range): BP systolic 103–152; BP diastolic 71–117; PULSE 104–128; RESP 10–24; TEMP 36.3–36.7; O2SAT 68–100; BMI 17.6
[2023-02-27] MEDS: sucralfate 1 gm/10 mL Oral Liq UDC PO ×3 (00:02→11:51)
[2023-02-27 02:30] LABS: Troponin 5 6HR 25.98 ng/L (0-15)
[2023-02-27 02:31] LABS: Troponin 5 6HR Delta -8.02 ng/L (0-12)
[2023-02-27] MEDS: pantoprazole 40 MG in sodium chloride 0.9% (plus) 100 ML 20 MG IV (03:54)
[2023-02-27] MEDS: ipratropium 0.5 mg/2.5 mL Neb INHALATION ×6 (03:57→23:17)
[2023-02-27] MEDS: levalbuterol 1.25 mg/3 mL Neb INHALATION ×6 (03:57→23:17)
[2023-02-27 04:16] LABS: Add Urine Microscopic? YES; Bilirubin Urine Neg (Negative); Blood Urine 2+ (Negative); Glucose Urine UA Norm (Normal); Ketones Urine Negative (Negative); Leukocyte Esterase Urine Negative (Negative); Nitrate Urine Negative (Negative); Protein Urine 1+ (Negative); Urine Appearance SL Hazy (CLEAR); Urine Color Dark Yellow (Yellow); Urobilinogen Urine Neg (Negative); pH Urine 5 (5-7)
[2023-02-27 04:17] LABS: Add Urine Culture? No; Bacteria Urine 1+ /hpf; Mucus Urine 3+ /hpf; RBC Urine 0-4 /hpf (0-2); Transitional Epi Cells Urine 0-4 /hpf; WBC Urine 0-4 /hpf (0-5)
[2023-02-27] MEDS: magnesium hydroxide 30 mL UDC PO (05:15)
--- NOTE | 2023-02-27 08:40 | P.PN_ITS ---
Subjective 2 Subjective: Patient underwent endoscopy yesterday. It revealed esophagitis, Flood's esophagus, gastritis, gastric ulcer and duodenitis. He tolerated this well. Today he complains of shortness of breath. No chest pain. For some reason he has been put on midodrine. He is not on any afterload reducing agents, diuretics or beta-conrado. His blood pressures have been stable. He has not been hypotensive. He has intermittently been tachycardic. Vitals/I&O/Wt Last Vital Signs Temp 97.9 F 02/27/23 08:14 Pulse 120 H 02/27/23 07:33 Resp 22 H 02/27/23 07:31 BP 124/88 02/27/23 06:06 Pulse Ox 94 02/27/23 07:31 O2 Del Method Nasal Cannula 02/27/23 07:31 O2 Flow Rate 2 02/27/23 07:31 02/26/23 02/27/23 02/27/23 22:59 06:59 14:59 Intake Total 745 / 795 350 / 1145 924.333 / 924.333 Output Total 400 / 400 250 / 650 Balance 345 / 395 100 / 495 924.333 / 924.333 Weight last 48 hrs Weight 113 lb Weight 110 lb Physical Exam 2 Narrative: GENERAL: In general he looks cachectic, much older than his stated age and is coughing. HEENT: Exam within normal limits. NECK: Supple without jugular vein distention. The carotid upstroke is normal without bruits. BACK: Exam normal. LUNGS: Decreased breath sounds bilaterally, long expiratory phase, wheezes throughout. HEART: Regular rate and rhythm. ABDOMEN: Benign without organomegaly or tenderness. EXTREMITIES: No edema. NEUROLOGIC: Exam normal. SKIN: Unremarkable. Data 02/26/23 03:05 02/26/23 03:05 Micro: Microbiology 02/26/23 18:24 Blood Culture - Preliminary Blood SPECIMEN COLLECTED 02/26/23 18:20 Blood Culture - Preliminary Blood SPECIMEN COLLECTED 02/25/23 15:42 Blood Culture - Preliminary Blood NEGATIVE TO DATE 02/25/23 15:38 Blood Culture - Preliminary Blood NEGATIVE TO DATE A&P Assessment and plan (1) Pulmonary HTN: (2) Tobacco abuse: (3) Gastric ulcer: (4) Left ventricular dysfunction: (5) Hyperbilirubinemia: (6) Transaminitis: (7) Weight loss: (8) Anorexia: (9) Muscle wasting: (10) Physical deconditioning: (11) Protein calorie malnutrition: (12) Acute CHF (congestive heart failure): (13) COPD exacerbation: (14) Nausea & vomiting: (15) COPD (chronic obstructive pulmonary disease): Qualifiers: COPD type: unspecified COPD Qualified Code(s): J44.9 - Chronic obstructive pulmonary disease, unspecified Plan I see no need for the midodrine. I am going to discontinue this. I will add Aldactone. Eventually we will need to try to add an afterload reducing agent and a beta-conrado. Now that I have seen how chronically ill he his I do not think coronary angiography is in his best interest. I also do not think he is going to be a candidate for a defibrillator. He would never be a candidate for open heart surgery. Within the next day I will get a nuclear stress test. If this is low risk or negative we will simply treat him medically. I do not know that he is going to tolerate the other cardiac medications. I also see no need for him to be in the ICU. Attestations 2 Medical Necessity Statement*: Hospitalization for above-mentioned medical problems and Moderate Time for a total of 35 minutes, includes reviewing past or interval history, examining/interviewing patient, placing orders, counseling patient/family/other support, updating patient/family/other support, discussing plan of care with staff and documenting encounter Diagnoses Pulmonary HTN I27.20 Tobacco abuse Z72.0 Gastric ulcer K25.9 Left ventricular dysfunction I51.9 Hyperbilirubinemia E80.6 Transaminitis R74.01 Weight loss R63.4 Anorexia R63.0 Muscle wasting M62.50 Physical deconditioning R53.81 Protein calorie malnutrition E46 Acute CHF (congestive heart failure) I50.9 COPD exacerbation J44.1 Nausea & vomiting R11.2 Chronic obstructive pulmonary disease, unspecified COPD type J44.9 COPD type: unspecified COPD
[2023-02-27] MEDS: methylPREDNISolone sod succ 125 mg/2 mL INJ 60 MG IVP ×2 (09:19→15:03)
[2023-02-27] MEDS: cefTRIAXone 1,000 MG in sodium chloride 0.9% (plus) 50 ML 100 MG IV (09:21)
[2023-02-27] MEDS: midodrine 5 mg TABLET PO (09:21)
--- NOTE | 2023-02-27 10:11 | P.CONIM_ITS ---
Providers/Reason For Consult 2 Consulting Physician/Specialty*: Franck Bryant MD neurology and epilepsy Reason for Consult*: Altered mental status Attending Physician: Trinidad Valente MD Primary Care Provider: Shannon Merchant APN History of Present Illness History of Present Illness José Collier is a 67 year old male admitted with acute congestive heart failure. Patient was reported to have altered mental status and therefore neurology consult was obtained. Currently the patient is awake and oriented to person place and situation. He complained of some shortness of breath this morning but denied headaches or visual difficulty or speech difficulty or focal weakness. Past medical history: Congestive heart failure Left ventricular dysfunction Hyperbilirubinemia Gastric ulcer Nicotine dependence Myocardial infarction Pneumonia Drug allergies: None Current home medications: Advair Diskus 1 inhalation twice a day Albuterol nebulizer to use as instructed Celebrex 200 mg p.o. daily Vitamin D2 50,000 international units p.o. weekly Pepcid 20 mg p.o. twice daily Atrovent multidose inhaler 2 inhalations 4 times a day Lisinopril 5 mg p.o. daily Phenergan/DM 6.25 mg / 15 mg per 5 mL 5 to 10 mL p.o. every 6 hours as needed for cough Habits: Unknown Family history: Unknown Review of Systems 2 General: Reports: 10 or more systems reviewed and unremarkable except in HPI and below Medications/Allergies Home Medications Medication Instructions Recorded Confirmed Last Taken Type albuterol sulfate 90 mcg/actuation 1 inh inhalation TID PRN shortness 10/13/22 02/25/23 Unknown Rx aerosol inhaler (ProAir HFA) of breath #18 grams celecoxib 200 mg capsule (Celebrex) 200 mg PO DAILY #30 caps 10/13/22 02/25/23 02/24/23 Rx ergocalciferol (vitamin D2) 1,250 See Rx Instructions .Route 10/13/22 02/25/23 02/18/23 Rx mcg (50,000 unit) capsule .COMPLEX #4 caps albuterol sulfate 2.5 mg/3 mL See Rx Instructions .Route 02/12/23 02/25/23 Unknown Rx (0.083 %) solution for nebulization .COMPLEX #180 mL promethazine-DM 6.25 mg-15 mg/5 mL 5 - 10 ml PO Q6H PRN cough 14 days 02/12/23 02/25/23 Unknown Rx oral syrup #473 mL amoxicillin 875 mg-potassium 1 tab PO BID 02/25/23 02/25/23 02/24/23 History clavulanate 125 mg tablet famotidine 20 mg tablet 20 mg PO BID 02/25/23 02/25/23 02/24/23 History fluticasone 500 mcg-salmeterol 50 1 inh inhalation BID 02/25/23 02/25/23 02/24/23 History mcg/dose blistr powdr for inhalation (Advair Diskus) fluticasone propionate 50 1 spray intranasal DAILY 02/25/23 02/25/23 02/24/23 History mcg/actuation nasal spray,suspension ipratropium bromide 17 2 inh inhalation QID 02/25/23 02/25/23 02/24/23 History mcg/actuation HFA aerosol inhaler (Atrovent HFA) lisinopril 5 mg tablet 5 mg PO DAILY 02/25/23 02/25/23 02/24/23 History Allergies Allergy/AdvReac Type Severity Reaction Status Date / Time No Known Allergies Allergy Verified 02/25/23 02:03 Current Medications Generic Name Dose Route Start Last Admin Trade Name Freq PRN Reason Stop Dose Admin Acetaminophen 500 mg 02/25/23 04:50 02/25/23 09:28 Acetaminophen 500 Mg Tablet PO 500 mg Q4H PRN Administration fever Atorvastatin Calcium 40 mg 02/25/23 21:00 02/26/23 20:57 Atorvastatin 40 Mg Tablet PO 40 mg BEDTIME CIRILO Administration Benzonatate 100 mg 02/25/23 10:07 02/25/23 10:36 Benzonatate 100 Mg Capsule PO 100 mg TID PRN Administration COUGH Budesonide 0.5 mg 02/25/23 20:00 02/27/23 07:27 Budesonide 0.5 Mg/2 Ml Neb INHALATION Not Given BID.RESPIRATORY CIRILO Ceftriaxone Sodium 1,000 mg/ 50 mls @ 100 mls/hr 02/25/23 09:00 02/27/23 09:21 Sodium Chloride IV 100 mls/hr DAILY CIRILO Administration Protocol Azithromycin 500 mg/ Sodium 250 mls @ 250 mls/hr 02/25/23 14:45 02/26/23 17:06 Chloride IV Infused Q24H CIRILO Infusion Protocol Sodium Chloride 1,000 mls @ 30 mls/hr 02/26/23 11:15 02/27/23 08:04 Sodium Chloride 0.9% IV 02/27/23 11:14 0 mls/hr .Q24H CIRILO Infusion Ipratropium [place] 0.5 mg 02/26/23 20:00 02/27/23 07:26 Ipratropium 0.5 Mg/2.5 Ml Neb INHALATION 0.5 mg Q4H.RESPIRATORY CIRILO Administration Levalbuterol HCl 1.25 mg 02/26/23 16:36 02/27/23 07:26 Levalbuterol 1.25 Mg/3 Ml Neb INHALATION 1.25 mg Q4H.RESPIRATORY PRN Administration SHORTNESS OF BREATH Methylprednisolone Sodium Succinate 60 mg 02/27/23 09:00 02/27/23 09:19 Methylprednisolone Sod Succ 125 Mg/2 Ml Inj IVP 60 mg DAILY CIRILO Administration Metoclopramide HCl 5 mg 02/25/23 17:53 02/25/23 18:35 Metoclopramide 5 Mg/Ml Sdv 2 Ml IVP 5 mg Q6H PRN Administration NAUSEA AND VOMITING Morphine Sulfate 2 mg 02/25/23 17:54 02/26/23 03:02 Morphine 4 Mg/Ml Sdv 1 Ml IVP 2 mg Q4H PRN Administration SEVERE PAIN Sucralfate 1 gm 02/25/23 17:51 02/27/23 05:15 Sucralfate 1 Gm/10 Ml Oral Liq Udc PO 1 gm Q6H CIRILO Administration PFSH Acute 2 PFSH: Medical History Pulmonary HTN Tobacco abuse Gastric ulcer Left ventricular dysfunction COPD exacerbation Nausea & vomiting Lower respiratory infection Environmental and seasonal allergies Fatigue Hypertension screen Medication management Vitamin D deficiency Left ankle pain Left knee pain Mild acid reflux COPD (chronic obstructive pulmonary disease) Anxiety Hypercholesterolemia Surgical History Status post bladder repair Status post lobectomy of lung Family History Other CAD (coronary artery disease) Cancer Hyperlipidemia Hypertension Social History Smoking and tobacco/nicotine status: current every day tobacco/nicotine user Alcohol intake: former Substance/Drug Use: former Vitals/I&O/Wt Last Vital Signs Temp 97.9 F 02/27/23 08:14 Pulse 120 H 02/27/23 07:33 Resp 22 H 02/27/23 07:31 BP 124/88 02/27/23 06:06 Pulse Ox 94 02/27/23 07:31 O2 Del Method Nasal Cannula 02/27/23 07:31 O2 Flow Rate 2 02/27/23 07:31 02/26/23 02/27/23 02/27/23 22:59 06:59 14:59 Intake Total 745 / 795 350 / 1145 924.333 / 924.333 Output Total 400 / 400 250 / 650 Balance 345 / 395 100 / 495 924.333 / 924.333 Weight last 48 hrs Weight 113 lb Weight 110 lb Physical Exam 2 Narrative: The patient is currently alert and oriented x 3. Speech fluent. Head normocephalic neck supple cranial nerves II through XII intact pupils equal round and reactive light and accommodation extraocular movements intact motor testing grossly nonfocal at 5/5. Sensory examination intact to gross modalities. Throat clear. Lungs revealed no obvious wheezing. Heart regular rhythm and rate extremities were negative for cyanosis Data 02/26/23 03:05 02/26/23 03:05 Micro: Microbiology 02/26/23 18:24 Blood Culture - Preliminary Blood SPECIMEN COLLECTED 02/26/23 18:20 Blood Culture - Preliminary Blood SPECIMEN COLLECTED 02/25/23 15:42 Blood Culture - Preliminary Blood NEGATIVE TO DATE 02/25/23 15:38 Blood Culture - Preliminary Blood NEGATIVE TO DATE A&P Assessment and plan (1) Altered mental status: Impression: 1. Altered mental status, resolved 2. Acute congestive heart failure Plan: 1. Agree with current treatment plan 2. No further recommendations from neurological standpoint, please call if needed Consult Attestations 2 Medical Necessity Statement: The patient was evaluated by neurology for reported altered mental status Coding Level of Care Code 94349 Diagnoses Altered mental status R41.82
[2023-02-27 11:44] LABS: COMPLEMENT COMPONENT C3C 63 mg/dL (82-185); COMPLEMENT COMPONENT C4C 7 mg/dL (15-53)
[2023-02-27] MEDS: FUROsemide 10 mg/mL SDV 4mL 40 MG IVP (14:27)
[2023-02-27 14:42] LABS: ABG PCO2 51.2 mmHg (35-45); ABG PH Result 7.25 (7.35-7.45); Alveolar-Arterial Oxygen Gradi 21.2 mmHg (5-10); Arterial Blood Gas Hematocrit 43.7 % (42-52); Base Excess ABG -5.2 mmol/L (-2.0-2.0); Blood Gas Allen Test Pos; Blood Gas Operator Identificat CAK; Blood Gas Sample Site Radial, left; Blood Gas Sample Type Arterial; Carboxyhemoglobin 1.5 %THgb (0.4-20.1); HCO3 ABG 22.5 mmol/L (22-26); HGB O2 Sat 97.1 % (95-100); Ionized Calcium Level - ABG 1.1 mmol/L (1.1-1.4); Methemoglobin 0.7 % (0.4-1.5); Oxygen Device BIPAP; Oxygen Saturation ABG 99.4; PO2 FiO2 Ratio Arterial Blood 0; Potassium Level - ABG 5.5 mmol/L (3.5-5.0); Total Hemoglobin 14.3 g/dL (14-18)
[2023-02-27] MEDS: FUROsemide 10 mg/mL SDV 2mL 20 MG IVP (15:03)
[2023-02-27] MEDS: pantoprazole 40 mg SDV IVP ×2 (15:16→17:34)
--- NOTE | 2023-02-27 15:30 | SUR.PREOP ---
FOR PICC LINE INSERTION
--- NOTE | 2023-02-27 16:20 | P.PN_ITS ---
Subjective 2 Subjective: Patient seen and examined. He is not very talkative this morning but says he has no pain Vitals/I&O/Wt Last Vital Signs Temp 97.3 F L 02/27/23 14:12 Pulse 121 H 02/27/23 16:00 Resp 22 H 02/27/23 16:00 BP 147/117 02/27/23 15:15 Pulse Ox 96 02/27/23 16:00 O2 Del Method BiPAP 02/27/23 15:45 O2 Flow Rate 3 02/27/23 11:00 FiO2 30 02/27/23 15:47 02/27/23 02/27/23 02/27/23 06:59 14:59 22:59 Intake Total 350 / 1145 1174.333 / 1174.333 Output Total 250 / 650 Balance 100 / 495 1174.333 / 1174.333 Weight last 48 hrs Weight 113 lb Weight 110 lb Physical Exam 2 Narrative: General: No acute distress, cachectic Abdomen: Soft, nontender, nondistended Urinary Catheter Management: [place]: Cath Placed During This Visit: yes Urinary Catheter Date of Insertion: 02/27/23 Urinary Catheter Time of Insertion: 14:51 Data 02/26/23 03:05 02/26/23 03:05 Micro: Microbiology 02/27/23 05:08 Gram Stain - Final Sputum - Expectorated Sputum 02/26/23 18:24 Blood Culture - Preliminary Blood SPECIMEN COLLECTED 02/26/23 18:20 Blood Culture - Preliminary Blood SPECIMEN COLLECTED 02/25/23 15:42 Blood Culture - Preliminary Blood NEGATIVE TO DATE 02/25/23 15:38 Blood Culture - Preliminary Blood NEGATIVE TO DATE A&P Assessment and plan (1) Gastric ulcer: Qualifiers: Gastric ulcer chronicity: acute Gastric ulcer complication status: w ithout hemorrhage or perforation Qualified Code(s): K25.3 - Acute gastric ulcer without hemorrhage or perforation (2) Gastritis: (3) Esophagitis: (4) Duodenitis: Plan His gastric ulcer is concerning for possible malignancy. Await biopsy results Continue twice daily Protonix Continue Carafate Advance to bland diet Further recommendations pending biopsy results Medical management per hospitalist Attestations 2 Medical Necessity Statement*: Per primary Coding Level of Care Code 04862 Diagnoses Acute gastric ulcer without hemorrhage or perforation K25.3 Gastric ulcer chronicity: acute Gastric ulcer complication status: without hemorrhage or perforation Gastritis K29.70 Esophagitis K20.90 Duodenitis K29.80
--- NOTE | 2023-02-27 16:21 | P.PN_ITS ---
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 Biopsies were obtained from the antrum, the lower third of the esophagus, the gastric cardia, antrum, and second part of the duodenum. The patient had had something to drink, and was in a better movement. At the time that he was seen, he was watching the TV, and watching the meteorologist discussed the oncoming cold weather conditions. He became tearful that there are many people including children who did not have a home where they could stay warm and out of the cold weather conditions. He quickly complained of being dyspneic. He became tachycardic and hypotensive. Given that he just had an EGD, there was concern for bowel perforation, so a stat CT abdomen pelvis was repeated, a CXR was also ordered. He was started on a PPI drip. He was given a duoneb treatment w/ Xopenex. An ABG was ordered that was 7 point 4/44/58.8 on room air, so he was placed on 2L NC. His lactic acid was 4.1, and an LDH and Trop T series were ordered. An EKG was done that showed ST depressions in V5 and V6. He was also started on midodrine for his hypotension. 02/27/2023: Today, the patient's PPI dri p was discontinued due to concern for the EF of 10%. Cardiology saw him, and DC'd midodrine, with potential plans for a stress test. The patient's troponin T was mildly elevated. IV azithromycin was also held due to concerns for his EF of 10%. He was dyspneic throughout the day, and went into respiratory distress this afternoon, requiring BiPAP. An ABG was done that showed 7.2 5/51/134. He was also given another dose of 60 mg IVP of Solu-Medrol, and a total dose of Lasix 60 mg IVP x 1. His CT abd/pelvis was negative for bowel perforation. A PICC line was ordered for placement, in anticipation of the need for Vasopressors, but due to technical difficulties, a R. sided midline was placed. A valdez catheter was also placed. Vitals/I&O/Wt Last Vital Signs Temp 97.3 F L 12/12/23 14:12 Pulse 121 H 02/27/23 16:00 Resp 22 H 02/27/23 16:00 BP 147/117 02/27/23 15:15 Pulse Ox 96 02/27/23 16:00 O2 Del Method BiPAP 02/27/23 15:45 O2 Flow Rate 3 02/27/23 11:00 FiO2 30 02/27/23 15:47 02/27/23 02/27/23 02/27/23 06:59 14:59 22:59 Intake Total 350 / 1145 1174.333 / 1174.333 Output Total 250 / 650 Balance 100 / 495 1174.333 / 1174.333 Weight last 48 hrs Weight 51.256 kg Weight 49.895 kg Physical Exam 2 Const: GENERAL APPEARANCE: cooperative, in distress, disheveled, ill appearing, frail appearing and appears older than stated age; not comfortable NUTRITIONAL APPEARANCE: cachectic O RIENTATION/CONSCIOUSNESS: Yes awake, Yes oriented to person, Yes oriented to place and Yes oriented to time HENMT: COMMON NORMALS: normocephalic, atraumatic and external ears normal H EAD & SCALP: normocephalic and atraumatic EXTERNAL EAR: Yes external ears normal MOUTH: Normal oral and palatal mucosa present THROAT: posterior oropharynx normal Eye: COMMON NORMALS: Equal, round and reactive pupils present and conjunctivae normal CONJUNCTIVA: Yes conjunctivae normal PUPIL: Yes Equal, round and reactive pupils present EOM: No EOM abnormal Neck/C-Spine: COMMON NORMALS: Thyroid normal GENERAL: Yes normal visual inspection and Yes trachea midline THYROID: Thyroid normal CAROTIDS: No bruit OTHER: Difficult to appreciate carotid bruit given his respiratory distress. Lymph: LYMPHATIC: No lymphadenopathy Resp: OTHER: In respiratory distress, with use of accessory muscles. Crackles and diminished breath sounds in the bilateral lower lung gardner with bilateral expiratory wheezes in all bilateral lung gardner. GI: OTHER: Nontender, nondistended, no guarding, no rigidity, no rebound tenderness. Bowel sounds positive. Extremity: GENERAL: No clubbing, Yes cyanosis and No edema Neuro: SENSORIUM/ORIENTATION: Yes oriented to person, Yes oriented to place and Yes oriented to time CRANIAL NERVES: Yes CN normal except as noted S PEECH: speech normal MOTOR EXAM: 5/5 motor strength present throughout and Normal motor muscle tone present throughout Psych: COMMON NORMALS: Normal thought process present and speech normal A PPEARANCE: Yes unkempt and Yes disheveled ATTITUDE: Yes calm and Yes engaged ACTIVITY/MOTOR BEHAVIOR: Yes appropriate eye contact SPEECH: Yes normal speech MOOD & AFFECT: Yes sad and Yes tearful THOUGHT PROCESS: Normal thought process present THOUGHT CONTENT: Yes Normal thought content present ATTENTION/CONCENTRATION: Yes attention grossly intact Skin: COMMON NORMALS: no rashes or lesions noted GENERAL SKIN EXAM: no rashes or lesions noted Urinary Catheter Management: Valdez: Cath Placed During This Visit: yes Urinary Catheter Date of Insertion: 02/27/23 Urinary Catheter Time of Insertion: 14:51 Data 02/26/23 03:05 02/26/23 03:05 Micro: Microbiology 02/27/23 05:08 Gram Stain - Final Sputum - Expectorated Sputum 02/26/23 18:24 Blood Culture - Preliminary Blood SPECIMEN COLLECTED 02/26/23 18:20 Blood Culture - Preliminary Blood SPECIMEN COLLECTED 02/25/23 15:42 Blood Culture - Preliminary Blood NEGATIVE TO DATE 02/25/23 15:38 Blood Culture - Preliminary Blood NEGATIVE TO DATE A&P Assessment and plan (1) COPD exacerbation: (2) Acute on chronic HFrEF (heart failure with reduced ejection fraction): (3) Gastric ulcer: Qualifiers: Gastric ulcer chronicity: acute Gastric ulcer complication status: w ithout hemorrhage or perforation Qualified Code(s): K25.3 - Acute gastric ulcer without hemorrhage or perforation (4) Tobacco abuse: (5) Transaminitis: Plan Mr Collier is a 67yo man w/COPD and CHF, who presented to the ED on 02/25/2023 not on O2, for worsening dyspnea. Prior to this admission, he initially presented to his PCP's office w/ complaints of diarrhea, and episode of emesis, a cough and dyspnea. He was diagnosed with COPD exacerbation and viral gastroenteritis, and given 1 g of Rocephin Decadron 10 mg IM, & promethazine. He then presented on 02/16/2023, to [facility]'s ED, with complaints of 3 days of worsening dyspnea. He was diagnosed with COPD exacerbation. His CXR on 02/16/2023 showed cardiomegaly with trace L. Pleural effusion as well as areas of bilateral mid to lower lung atelectasis. It also showed COPD and a few lung opacities concerning for mild lymphadenopathy. He was discharged with 60 mg p.o. daily of prednisone and 7 days of doxycycline p.o. twice daily. He then presented for the second time to [facility]'s ED on 02/25/2023, with complaints of increased dyspnea and productive cough of bloody sputum as well as vomiting. His CXR on 02/25 was unchanged from 02/16. He was admitted for hemoptysis. On admission, a CTA chest abdomen and pelvis were ordered that showed an inflammed gastric ulcer in the posterior distal body of the stomach, mild fatty infiltration of the liver, and diffuse moderate gallbladder thickening, concerning for cystitis. The general surgeon, Dr. Leal was consulted. A TTE was also ordered, given that his BNP was highly elevated, but he did not look fluid overloaded. His TTE, done on 02/25/2023, showed an EF of 10% with global LV hypokinesis, moderately severe MV regurg, mild to moderate tricuspid valve regurg, and moderate pulmonary HTN with an RVSP of 50.2 mmHg. Based on these new revelations, the field assistant was also consulted. 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 Biopsies were obtained from the antrum, the lower third of the esophagus, the gastric cardia, antrum, and second part of the duodenum. Post EGD, he quickly complained of being dyspneic. He became tachycardic and hypotensive. Given that he just had an EGD, there was concern for bowel perforation, so a stat CT abdomen pelvis was repeated, a CXR was also ordered. He was started on a PPI drip. He was given a duoneb treatment w/ Xopenex. An ABG was ordered that was 7 point 4/44/58.8 on room air, so he was placed on 2L NC. His lactic acid was 4.1, and an LDH and Trop T series were ordered. An EKG was done that showed ST depressions in V5 and V6. He was also started on midodrine for his hypotension. He clinically improved w/ breathing treatments. His CT abd/pelvis was negative for bowel perforation. Neuro/Psych Cardio #Hypotension - Trend Trop T. Start Midodrine 5mg TID. #Acute on chronic HFrEF: EF of 10%. #Pulmonary HTN - Cardiology following. - F/u BNP ordered for the AM. Pulm #SIRS: due his COPD. His leukocytosis may also be due to the steroids #Acute COPD exacerbation: D/c'ed Dexamethasone. Increased IV Soludmedrol to 60mg BID. On Xopenex q4h and ipratropium q4h. - Will consult Pulm regarding his options in the setting of an EF of 10% #Acute hypoxic/hypercapneic respiratory failure: On BiPAP. Recheck ABG in 2 hrs GI #Posterior gastric ulcer #Gastritis w/ Esophagitis #Flood's Esophagus #Duodenitis #Abdominal pain s/p EGD - PPI IV BIDAC pushes. - Advance diet p #Severe Protein Calorie Malnutrition: Consult partner integration planner to recommend supplements #Mild proctitis #Constipation: Give Milk of Magnesia. Renal - Monitor renal fxn. ID BCx negative. D/c'ed Azithromycin IV b/c it is in 250cc, and give him po instead. Contiue Ceftriaxone IV Heme MSK - PT/OT Derm: No acute issues at this time DVT ppx: Lovenox Attestations 2 Medical Necessity Statement*: Patient needs to remain hospitalized due to hemodynamic instability Coding Level of Care Code 55850 Diagnoses COPD exacerbation J44.1 Acute on chronic HFrEF (heart failure with reduced ejection fraction) I50.23 Acute gastric ulcer without hemorrhage or perforation K25.3 Gastric ulcer chronicity: acute Gastric ulcer complication status: without hemorrhage or perforation Tobacco abuse Z72.0 Transaminitis R74.01
--- NOTE | 2023-02-27 17:01 | PC.NURSE ---
Addendum entered by Mariann Monroe RN 02/27/23 17:14: Patient is a limited code, Confirmed with provider and Family, Lis Collier Original Note: Event note: Patient became short of breath, attempting to tripod to ease work of breathing, PRN ativan given, along with scheduled breathing tx per RT and MAY. Notified Dr. Valente of change in patients condition. Upon assessment patient had crackles in lungs and appeared fluid overloaded, including elevated BNP labs. Received orders for Lasix, SoluMedrol, Linares placement, Bipap, ABG, PICC/Midline. All orders completed at this time, work of breathing has decreased, patient remains some what confused and agitated, flash backs to [place] possible. Taken off of bipap at this time to discuss code status. Full Code confirmed by sister Lis Collier and phone call was transferred back to provider for more confirmation. Dr. Rodriguez is also bedside for pulmonology consult.
[2023-02-27 17:15] LABS: Lactate (Lactic Acid level) 4.3 mmol/L (0.5-2.2)
[2023-02-27] MEDS: budesonide 0.5 mg/2 mL Neb INHALATION (19:45)
[2023-02-27] MEDS: atorvastatin 40 mg Tablet PO (21:28)
--- NOTE | 2023-02-27 21:38 | P.CONIM_ITS ---
Providers/Reason For Consult 2 Consulting Physician/Specialty*: Ramakrishna Rodriguez MD/Pulmonary Critical Care Reason for Consult*: Respiratory distress and patient with advanced heart failureAnd underlying emphysema Requesting Physician: Trinidad Valente MD Attending Physician: Trinidad Valente MD Primary Care Provider: Shannon Merchant APN History of Present Illness History of Present Illness José Collier is a 67 year old male With severe systolic heart failure with EF 10%, Severe centrilobular emphysema presented to hospital on 02/25/2023 with chief complaint of shortness of breath with hemoptysis he carries history of congestive heart failure but does not take any diuretic, he does not use any oxygen at home, he has had 3 visits in the ER and he was seen at [facility] he was put on steroids and antibiotics which has not improved his symptoms. During admission patient complained having hemoptysis for 24 hours mixed with sputum but he was concerned as he was losing more blood from excessive coughing, vomiting and he filled the toilet from excessive coughing and blood. However in the ER his x-ray is showing hyperinflated COPD related changes, hemoglobin is stable, he is hemodynamically stable. CTA which was done 02/16 did not show PE,No obvious infiltrates or any suspicious mass; it showed cardiomegaly with lymphadenopathy. Patient cachectic and malnourished. Lives alone, sister lives in town, He underwent EGD and was noted to have gastritis, esophagitis as well as peptic ulcers - He is on pantoprazole twice daily Yesterday was hypotensive and started on midodrine-Which was stopped later; patient had an echocardiogram with EF 10% and pulmonary hypertension 50. Cardiology planning to do stress test. Today morning patient was in respiratory distress; ABG showed respiratory acidosis with pH 7.25 and pCO2 51and so he was started on BiPAP; BNP was elevated to 11 K; Lasix 60 Mg was given - Has about 1 L urine output since morning Pulmonary critical care consult requested for evaluation of respiratory failure in patient with advanced heart failure as well as underlying emphysema I have seen patient at bedside-he was browsing on his cell phone; currently on nasal cannula He is upset for unknown reason and when I try to ask him-he refused to Answer and cooperate Review of Systems 2 General: Reports: Other (Patient refused to answer) Medications/Allergies Home Medications Medication Instructions Recorded Confirmed Last Taken Type albuterol sulfate 90 mcg/actuation 1 inh inhalation TID PRN shortness 10/13/22 02/25/23 Unknown Rx aerosol inhaler (ProAir HFA) of breath #18 grams celecoxib 200 mg capsule (Celebrex) 200 mg PO DAILY #30 caps 10/13/22 02/25/23 02/24/23 Rx ergocalciferol (vitamin D2) 1,250 See Rx Instructions .Route 10/13/22 02/25/23 02/18/23 Rx mcg (50,000 unit) capsule .COMPLEX #4 caps albuterol sulfate 2.5 mg/3 mL See Rx Instructions .Route 02/12/23 02/25/23 Unknown Rx (0.083 %) solution for nebulization .COMPLEX #180 mL promethazine-DM 6.25 mg-15 mg/5 mL 5 - 10 ml PO Q6H PRN cough 14 days 02/12/23 02/25/23 Unknown Rx oral syrup #473 mL amoxicillin 875 mg-potassium 1 tab PO BID 02/25/23 02/25/23 02/24/23 History clavulanate 125 mg tablet famotidine 20 mg tablet 20 mg PO BID 02/25/23 02/25/23 02/24/23 History fluticasone 500 mcg-salmeterol 50 1 inh inhalation BID 02/25/23 02/25/23 02/24/23 History mcg/dose blistr powdr for inhalation (Advair Diskus) fluticasone propionate 50 1 spray intranasal DAILY 02/25/23 02/25/23 02/24/23 History mcg/actuation nasal spray,suspension ipratropium bromide 17 2 inh inhalation QID 02/25/23 02/25/23 02/24/23 History mcg/actuation HFA aerosol inhaler (Atrovent HFA) lisinopril 5 mg tablet 5 mg PO DAILY 02/25/23 02/25/23 02/24/23 History Allergies Allergy/AdvReac Type Severity Reaction Status Date / Time No Known Allergies Allergy Verified 02/25/23 02:03 Current Medications Generic Name Dose Route Start Last Admin Trade Name Freq PRN Reason Stop Dose Admin Acetaminophen 500 mg 02/25/23 04:50 02/25/23 09:28 Acetaminophen 500 Mg Tablet PO 500 mg Q4H PRN Administration fever Atorvastatin Calcium 40 mg 02/25/23 21:00 02/27/23 21:28 Atorvastatin 40 Mg Tablet PO 40 mg BEDTIME CIRILO Administration Benzonatate 100 mg 02/25/23 10:07 02/25/23 10:36 Benzonatate 100 Mg Capsule PO 100 mg TID PRN Administration COUGH Budesonide 0.5 mg 02/25/23 20:00 02/27/23 19:45 Budesonide 0.5 Mg/2 Ml Neb INHALATION 0.5 mg BID.RESPIRATORY CIRILO Administration Ceftriaxone Sodium 1,000 mg/ 50 mls @ 100 mls/hr 02/25/23 09:00 02/27/23 10:18 Sodium Chloride IV Infused DAILY CIRILO Infusion Protocol Ipratropium [place] 0.5 mg 02/26/23 20:00 02/27/23 19:45 Ipratropium 0.5 Mg/2.5 Ml Neb INHALATION 0.5 mg Q4H.RESPIRATORY CIRILO Administration Levalbuterol HCl 1.25 mg 02/26/23 16:36 02/27/23 19:45 Levalbuterol 1.25 Mg/3 Ml Neb INHALATION 1.25 mg Q4H.RESPIRATORY PRN Administration SHORTNESS OF BREATH Lorazepam 0.5 mg 02/26/23 17:42 02/27/23 21:28 Lorazepam Mdv 2 Mg/Ml Inj IVP 0.5 mg Q4H PRN Administration ANXIETY Methylprednisolone Sodium Succinate 60 mg 02/27/23 09:00 02/27/23 09:19 Methylprednisolone Sod Succ 125 Mg/2 Ml Inj IVP 60 mg DAILY CIRILO Administration Metoclopramide HCl 5 mg 02/25/23 17:53 02/25/23 18:35 Metoclopramide 5 Mg/Ml Sdv 2 Ml IVP 5 mg Q6H PRN Administration NAUSEA AND VOMITING Morphine Sulfate 2 mg 02/25/23 17:54 02/26/23 03:02 Morphine 4 Mg/Ml Sdv 1 Ml IVP 2 mg Q4H PRN Administration SEVERE PAIN Pantoprazole Sodium 40 mg 02/27/23 15:05 02/27/23 17:34 Pantoprazole 40 Mg Sdv IVP 40 mg BIDAC CIRILO Administration Sucralfate 1 gm 02/25/23 17:51 02/27/23 17:28 Sucralfate 1 Gm/10 Ml Oral Liq Udc PO Not Given Q6H CIRILO PFSH Acute 2 PFSH: Medical History Pulmonary HTN Tobacco abuse Gastric ulcer Left ventricular dysfunction COPD exacerbation Nausea & vomiting Lower respiratory infection Environmental and seasonal allergies Fatigue Hypertension screen Medication management Vitamin D deficiency Left ankle pain Left knee pain Mild acid reflux COPD (chronic obstructive pulmonary disease) Anxiety Hypercholesterolemia Surgical History Status post bladder repair Status post lobectomy of lung Family History Other CAD (coronary artery disease) Cancer Hyperlipidemia Hypertension Social History Smoking and tobacco/nicotine status: current every day tobacco/nicotine user Alcohol intake: former Substance/Drug Use: former Vitals/I&O/Wt Last Vital Signs Temp 97.3 F L 02/27/23 14:12 Pulse 121 H 02/27/23 20:15 Resp 21 H 02/27/23 20:15 BP 130/98 02/27/23 20:15 Pulse Ox 95 02/27/23 20:15 O2 Del Method BiPAP 02/27/23 20:15 O2 Flow Rate 3 02/27/23 19:45 FiO2 30 02/27/23 20:15 02/27/23 02/27/23 02/27/23 06:59 14:59 22:59 Intake Total 350 / 1145 1174.333 / 1174.333 Output Total 250 / 650 1000 / 1000 Balance 100 / 495 1174.333 / 1174.333 -1000 / 174.333 Weight last 48 hrs Weight 113 lb Weight 110 lb Physical Exam 2 Narrative: Patient refused to cooperateWith full examination General: alert, NAD,Clearly seem to be upset and refused to answer HEENT: conj clear, EOMI, PERRL, mmm, Respiratory:Patient did not allow to Examine Cardiovascular:Patient did not allow to examine Abdomen: Patient did not allow to examine Extremities: Patient did not allow to examine Skin: intact, no rash Neurologic: grossly intact Urinary Catheter Management: [place]: Cath Placed During This Visit: yes Reason for Continuing Indwelling Catheter: Accurate Measurement of Urinary Output in Critically Ill Patients Urinary Catheter Date of Insertion: 02/27/23 Urinary Catheter Time of Insertion: 14:51 Data 02/27/23 21:04 02/27/23 21:04 Other Labs: Radiology Impressions Chest/Abdomen/Pelvis CT 02/25/23 12:02 IMPRESSION: 1. Interval development of findings suspicious for esophagitis in the mid/distal esophagus. Upper endoscopy may be obtained for further evaluation as clinically indicated. 2. No evidence for pulmonary embolism. 3. Bronchial wall thickening in the right and left lower lobes. Findings could be due to emphysematous changes versus bronchitis. 4. Mild body wall edema. 5. Incidental/nonacute findings are listed in the report. IMPRESSION: 1. Inflamed gastric ulcer in the posterior distal body of the stomach. Increased density layering in the lumen of the stomach, this could represent partially digested medications however a gastric bleed can not be ruled out. Upper endoscopy may be obtained for further evaluation as clinically indicated. 2. Mild fatty infiltration of the liver. 3. Diffuse, moderate bladder wall thickening. In the correct clinical setting, this may suggest cystitis. Recommend correlation with laboratory findings. Alternatively, this may be secondary to chronic outlet obstruction. 4. Mild body wall edema. 5. Incidental/nonacute findings are listed in the report. ADDENDUM: 02/25/23 1701 THIS REPORT CONTAINS FINDINGS THAT MAY BE CRITICAL TO PATIENT CARE. The findings were verbally communicated via telephone conference with KESHA Easley at 4:59 PM TELEVISION ENGINEER on 02/25/2023. The findings were acknowledged and understood. Abdomen/Pelvis CT 02/26/23 17:00 IMPRESSION: 1. Borderline to mild cardiomegaly. 2. Interval appearance of moderate thickening in the distal esophageal wall suggesting possible esophagitis. 3. 9 mm Hutch diverticulum in the left posterolateral urinary bladder wall. Axial series 3, image 65. 9 mm gastrohepatic ligament lymph node which may be reactive versus neoplastic. 4. Bowel wall thickening in the rectum consistent with mild proctitis. 5. Dilated air-filled transverse colon and hepatic flexure with moderate retained feces in the ascending colon. 6. No obvious pneumoperitoneum, peritoneal fluid or retroperitoneal hemorrhage. Chest X-Ray 02/26/23 17:10 IMPRESSION: 1. Mild cardiomegaly. 2. Mild peribronchial thickening and/or mild perihilar linear markings consistent with bronchitis and/or viral pneumonitis and/or reactive airway disease and/or atypical pulmonary interstitial edema. 3. Stable COPD . Laboratory Results WBC 11.59 10^3/uL (3.29-11.43) H 02/27/23 21:04 Corrected WBC Cancelled 02/27/23 16:00 RBC 5.08 10^6/uL (3.85-5.65) 02/27/23 21:04 Hgb 14.10 g/dL (11.27-16.99) 02/27/23 21:04 Hct 43.8 % (37-53) 02/27/23 21:04 MCV 86.2 fl (82-101) 02/27/23 21:04 MCH 27.8 pg (27-33) 02/27/23 21:04 MCHC 32.2 g/dL (30-55) 02/27/23 21:04 RDW 15.6 % (12.1-15.1) H 02/27/23 21:04 Plt Count 133 10^3/cmm (157-399) L 02/27/23 21:04 MPV 10.0 fL (7.4-10.4) 02/27/23 21:04 Gran % Cancelled 02/27/23 16:00 Neut % (Auto) 92.1 % 02/27/23 21:04 Lymph % (Auto) 1.9 % 02/27/23 21:04 [place] % (Auto) 5.2 % 02/27/23 21:04 Eos % (Auto) 0.0 % 02/27/23 21:04 Baso % (Auto) 0.1 % 02/27/23 21:04 Neut # (Auto) 10.68 10^3/uL (1.8-7.7) H 02/27/23 21:04 Lymph # (Auto) 0.2 10^3/uL (0.8-4.8) L 02/27/23 21:04 [place] # (Auto) 0.6 10^3/uL (0.2-0.9) 02/27/23 21:04 Eos # (Auto) 0.0 10^3/uL (0.0-0.8) 02/27/23 21:04 Baso # (Auto) 0.0 10^3/uL (0.0-0.1) 02/27/23 21:04 Absolute Gran (auto) Cancelled 02/27/23 16:00 Nucleated RBC % (auto) 1.1 % 02/27/23 21:04 Nucleated RBCs # 0.1 /100WBC 02/27/23 21:04 ESR 1 mm/hr (0-10) 02/25/23 09:34 PT 17.60 SECONDS (12.1-14.9) H 02/25/23 17:45 INR 1.39 (0.8-1.2) H 02/25/23 17:45 D-Dimer 6.28 ug/mLFEU (0-0.59) H 02/25/23 05:19 Specimen Type Arterial 02/27/23 14:31 Sample Site Radial, left 02/27/23 14:31 ABG pH 7.25 (7.35-7.45) L 02/27/23 14:31 ABG pCO2 51.2 mmHg (35-45) H 02/27/23 14:31 ABG pO2 134.0 mmHg (80.0-100.0) H 02/27/23 14:31 ABG PO2/FiO2 Ratio 0 02/27/23 14:31 ABG HCO3 22.5 mmol/L (22-26) 02/27/23 14:31 ABG O2 Saturation 99.4 02/27/23 14:31 ABG Base Excess -5.2 mmol/L (-2.0-2.0) L 02/27/23 14:31 [place] Test Pos 02/27/23 14:31 A-a O2 Gradient 21.2 mmHg (5-10) H 02/27/23 14:31 Hematocrit 43.7 % (42-52) 02/27/23 14:31 Hgb O2 Saturation 97.1 % (95-100) 02/27/23 14:31 Carboxyhemoglobin 1.5 %THgb (0.4-20.1) 02/27/23 14:31 Methemoglobin 0.7 % (0.4-1.5) 02/27/23 14:31 Total Hemoglobin 14.3 g/dL (14-18) 02/27/23 14:31 Sodium 136.0 mmol/L (131-143) 02/27/23 14:31 Potassium 5.5 mmol/L (3.5-5.0) H 02/27/23 14:31 Glucose 212.0 mg/dL (70-115) H 02/27/23 14:31 Ionized Calcium 1.1 mmol/L (1.1-1.4) 02/27/23 14:31 O2 Delivery Device Bipap 02/27/23 14:31 O2 Liters/Min 2.0 % 02/26/23 16:58 FiO2 50.0 % 02/27/23 14:31 Flat Clothier ID Cak 02/27/23 14:31 Sodium 137 mmol/L (136-145) 02/27/23 21:04 Potassium 4.8 mmol/L (3.5-5.1) 02/27/23 21:04 Chloride 95 mmol/L (98-107) L 02/27/23 21:04 Carbon Dioxide 31 mmol/L (22-29) H 02/27/23 21:04 Anion Gap 15.8 (5-19) 02/27/23 21:04 BUN 42 mg/dL (8-23) H 02/27/23 21:04 Creatinine 0.9 mg/dL (0.7-1.2) 02/27/23 21:04 GFR Calculation 84.2 mL/min (90-130) L 02/27/23 21:04 Glucose 178 mg/dL (65-115) H 02/27/23 21:04 Estimat Average Glucose 134 02/25/23 09:34 Hemoglobin A1c 6.3 % (4.0-6.0) H 02/25/23 09:34 Calculated Osmolality 299 mOsm/kg (285-295) H 02/27/23 21:04 Lactate 4.3 mmol/L (0.5-2.2) H* 02/27/23 16:00 Calcium 8.6 mg/dL (8.5-10.5) 02/27/23 21:04 Phosphorus 4.2 mg/dL (2.5-4.5) 02/27/23 21:04 Magnesium 2.6 mg/dL (1.7-2.3) H 02/27/23 21:04 Total Bilirubin 1.8 mg/dL (0.15-1.2) H 02/27/23 21:04 Direct Bilirubin Cancelled 02/27/23 16:00 GGT 142 U/L (8-61) H 02/25/23 09:34 AST 415 U/L (0-40) H 02/27/23 21:04 ALT 836 U/L (0-41) H 02/27/23 21:04 Alkaline Phosphatase 292 U/L (40-130) H 02/27/23 21:04 Lactate Dehydrogenase 661 U/L (135-225) H 02/26/23 18:20 Troponin T Baseline 34 ng/L (0-15) H 02/26/23 18:20 Troponin T 120 Minute 26.07 ng/L (0-15) H 02/26/23 21:04 Delta Troponin T -7.93 ABS# (0-10) L 02/26/23 21:04 Troponin T Hi Sens 6Hr 25.98 ng/L (0-15) H 02/27/23 02:02 Troponin T Hi Sens 6Hr Delta -8.02 ng/L (0-12) L 02/27/23 02:02 C-Reactive Protein 21.0 mg/L (0.0-4.9) H 02/26/23 03:05 NT-Pro-B Natriuret Pep 85664 pg/mL (0-125) H 02/26/23 18:20 Total Protein 6.1 g/dL (6.6-8.7) L 02/27/23 21:04 Albumin 3.7 g/dL (3.5-5.2) 02/27/23 21:04 Globulin 2.4 g/dL (1.3-4.6) 02/27/23 21:04 Lipase 15 U/L (13-60) 02/25/23 09:34 Vitamin B12 > 2000 pg/mL (232-1245) H 02/25/23 02:22 Procalcitonin 0.13 ng/mL (0-0.5) 02/25/23 08:10 TSH 2.61 uIU/mL (0.27-4.20) 02/25/23 09:34 Urine Color Dark yellow (Yellow) 02/27/23 03:30 Urine Appearance Sl hazy (CLEAR) A 02/27/23 03:30 Urine pH 5 (5-7) 02/27/23 03:30 Ur Specific Dexter 1.020 (1.005-1.030) 02/27/23 03:30 Urine Protein 1+ (Negative) H 02/27/23 03:30 Urine Glucose (UA) Norm (Normal) 02/27/23 03:30 Urine Ketones Negative (Negative) 02/27/23 03:30 Urine Blood 2+ (Negative) H 02/27/23 03:30 Urine Nitrate Negative (Negative) 02/27/23 03:30 Urine Bilirubin Neg (Negative) 02/27/23 03:30 Urine Urobilinogen Neg mg/dL (Negative) 02/27/23 03:30 Ur Leukocyte Esterase Negative (Negative) 02/27/23 03:30 Urine RBC 0-4 /hpf (0-2) H 02/27/23 03:30 Urine WBC 0-4 /hpf (0-5) H 02/27/23 03:30 Ur Squamous Epith Cells None /hpf (0-5) 02/27/23 03:30 Ur Transition Epith Cell 0-4 /hpf 02/27/23 03:30 Amorphous Sediment Not Reportable 02/27/23 03:30 Urine Bacteria 1+ /hpf (NONE) H 02/27/23 03:30 Urine Mucus 3+ /hpf 02/27/23 03:30 Urine Opiates Screen Positive ng/mL (Negative) H 02/26/23 01:00 Ur Barbiturates Screen Negative ng/mL (Negative) 02/26/23 01:00 Ur Phencyclidine Scrn Negative ng/mL (Negative) 02/26/23 01:00 Ur Amphetamines Screen Negative ng/mL (Negative) 02/26/23 01:00 U Benzodiazepines Scrn Negative ng/mL (Negative) 02/26/23 01:00 Urine Cocaine Screen Negative ng/mL (Negative) 02/26/23 01:00 U Marijuana (THC) Screen Positive ng/mL (Negative) H 02/26/23 01:00 Ethyl Alcohol < 10 mg/dL (0-10) 02/25/23 15:38 Complement C3c 63 mg/dL (82-185) L 02/25/23 09:34 Complement C4c 7 mg/dL (15-53) L 02/25/23 09:34 Blood Type O Positive 02/25/23 18:27 Rho(D) Type Rh positive 02/25/23 18:27 Antibody Screen Negative 02/25/23 18:27 Micro: Microbiology 02/26/23 18:24 Blood Culture - Preliminary Blood NEGATIVE TO DATE 02/26/23 18:20 Blood Culture - Preliminary Blood NEGATIVE TO DATE 02/27/23 05:08 Gram Stain - Final Sputum - Expectorated Sputum 02/25/23 15:42 Blood Culture - Preliminary Blood NEGATIVE TO DATE 02/25/23 15:38 Blood Culture - Preliminary Blood NEGATIVE TO DATE A&P Assessment and plan (1) Acute on chronic HFrEF (heart failure with reduced ejection fraction): (2) Pulmonary HTN: (3) Tobacco abuse: (4) COPD exacerbation: (5) Respiratory distress: (6) Goals of care, counseling/discussion: Plan #Respiratory distress-most likely secondary to flash edema secondary to underlying systolic CHF with EF 10% and Significant pulmonary hypertension 50 - ABG showed respiratory acidosis-placed on BiPAP; Breathing improved after receiving Lasix 60 Mg-he put out 1 L today - Recommended to Continue diuretics; - If patient becomes hypotensive-he may need dobutamine plus Levophed - Follows up with cardiology and plan is toDo stress test -Currently patient is on Aldactone #Significant paraseptal and centrilobular emphysema on CT chestIn patient with significant smoking history - Needs PFTs as outpatient as well as adjustment of the inhalers #Hemoptysis/hematemesis-inpatient with esophagitis/gastritis/duodenitis/peptic ulcer-continue IV PPI -monitor H and H # Deranged LFTs - likely due to hepatic congestion # Goals of care discussion -Patient was unwilling to talk to me but as per the hospitalist team he is intermittently confused -I am going to send ammonia;-patientFamily wanted intubation if needed but not resuscitation. -I have explained family given his underlying end-stage CHF-he is at high risk for paul intubation mortality. They verbalized understanding Consult Attestations 2 Medical Necessity Statement: Will watch his respiratory status for the next 24 to 48 hours in ICU Time Spent in Patient Care: Greater than 35 minutes (>than 50% of time spent in counselling and/or direct pt care on unit) . Critical Care Time: The high probability of a clinically significant, sudden or life threatening deterioration of the patient's [respiratory, cardiac] system(s) required my full and direct attention, intervention and personal management. The critical care time is as shown. This time is in addition to time spent performing any reported procedures but includes the following: [x] Data and vital sign review and interpretation [x] Patient assessment, examination and intervention [x] Documentation [x] Medication orders and management Critical Care Time (min): 62 Coding Level of Care Code Acute Code for Chg Fwd Diagnoses Acute on chronic HFrEF (heart failure with reduced ejection fraction) I50.23 Pulmonary HTN I27.20 Tobacco abuse Z72.0 COPD exacerbation J44.1 Respiratory distress R06.03 Goals of care, counseling/discussion Z71.89 Time Spent (min) 62
[2023-02-27 22:01] LABS: Basophils % 0.1 %; Hematocrit 43.8 % (37-53); Lymphocytes # 0.2 10^3/uL (0.8-4.8); Lymphocytes % 1.9 %; Mean Corpuscular HGB Conc 32.2 g/dL (30-55); Mean Corpuscular Hemoglobin 27.8 pg (27-33); Mean Corpuscular Volume 86.2 fl (82-101); Monocytes # 0.6 10^3/uL (0.2-0.9); Monocytes % 5.2 %; Neutrophils # 10.68 10^3/uL (1.8-7.7); Neutrophils % 92.1 %; Nucleated Red Blood Cells # 0.1 /100WBC; Nucleated Red Blood Cells % 1.1 %; Platelet Count 133 10^3/cmm (157-399); Red Blood Count 5.08 10^6/uL (3.85-5.65); Red Cell Distribution Width 15.6 % (12.1-15.1); White Blood Count 11.59 10^3/uL (3.29-11.43)
[2023-02-27 22:16] LABS: Albumin Level 3.7 g/dL (3.5-5.2); Alkaline Phosphatase 292 U/L (40-130); Anion Gap 15.8 (5-19); Aspartate Amino Transferase 415 U/L (0-40); Blood Urea Nitrogen 42 mg/dL (8-23); Calcium 8.6 mg/dL (8.5-10.5); Carbon Dioxide 31 mmol/L (22-29); Chloride 95 mmol/L (98-107); Globulin 2.4 g/dL (1.3-4.6); Glomerular Filtration Rate 84.2 mL/min (90-130); Glucose 178 mg/dL (65-115); Magnesium 2.6 mg/dL (1.7-2.3); Osmolality Calculated 299 mOsm/kg (285-295); Phosphorus 4.2 mg/dL (2.5-4.5); Potassium 4.8 mmol/L (3.5-5.1); Sodium 137 mmol/L (136-145); Total Bilirubin 1.8 mg/dL (0.15-1.2); Total Protein 6.1 g/dL (6.6-8.7)
[2023-02-27 22:28] LABS: Alanine Aminotransferase 836 U/L (0-41)
[2023-02-28] VITALS (78 sets, daily range): BP systolic 101–142; BP diastolic 56–114; PULSE 0–120; RESP 14–26; TEMP 36.4–37; O2SAT 89–98
--- NOTE | 2023-02-28 | ECG_ITS ---
[facility] Test Date: 2023-02-28 Pat Name: José Collier Department: Room: [facility] [place] [facility] Gender: Male Lab Director: : 1955 Requested By: Gustavo Whittington Order Number: [id number] Keren MD: Layla New M.D. Interpretive Statements NAME OF STUDY: LEXISCAN SESTAMIBI STRESS TEST INDICATION: Chest Pain PROCEDURE: At the baseline, the blood pressure was 144/77 mmHg with a heart rate of 114 bpm. The electrocardiogram showed sinus tachycardia. ST depression and T wave inversion in inferolateral leads. ??? The Lexiscan was infused over a period of 20 seconds. A total of 0.4 milligrams of Lexiscan was infused. The stress phase was continued for a total of 5 minutes. Heart rate at the end of the stress phase was 110 bpm with a blood pressure of 128/72 mm Hg. The EKG at the peak infusion revealed no changes. ??? Sestamibi was injected 20 seconds after the Lexiscan infusion. ??? Blood pressure at the end of the recovery phase was 120/70 mmHg with a heart rate of 111 beats per minute. ??? CONCLUSION: 1. Nondiagnostic EKG with the LexiScan infusion due to baseline ST-T wave changes. 2. No LexiScan induced chest pain or cardiac arrhythmia. 3. Normal blood pressure and heart rate response. 4. Sestamibi/sestamibi perfusion scan pending; see separate report. Electronically Signed On 02-28-2023 12:04:34 PROSTHETIC MAKEUP DESIGNER by Layla New M.D. [email or web address]
[2023-02-28] MEDS: sucralfate 1 gm/10 mL Oral Liq UDC PO ×5 (00:49→23:39)
[2023-02-28] MEDS: nicotine 7 mg Patch 1 PATCH TRANSDERMA ×2 (00:49→09:19)
[2023-02-28] MEDS: levalbuterol 1.25 mg/3 mL Neb INHALATION ×4 (03:14→19:51)
[2023-02-28] MEDS: ipratropium 0.5 mg/2.5 mL Neb INHALATION ×4 (03:14→19:51)
[2023-02-28 03:46] LABS: Basophils % 0.1 %; Hematocrit 42.6 % (37-53); Lymphocytes # 0.3 10^3/uL (0.8-4.8); Lymphocytes % 3.2 %; Mean Corpuscular HGB Conc 32.2 g/dL (30-55); Mean Corpuscular Hemoglobin 27.7 pg (27-33); Mean Corpuscular Volume 86.1 fl (82-101); Mean Platelet Volume 11.3 fL (7.4-10.4); Monocytes # 0.6 10^3/uL (0.2-0.9); Monocytes % 5.8 %; Neutrophils # 9.56 10^3/uL (1.8-7.7); Neutrophils % 90.3 %; Nucleated Red Blood Cells # 0.2 /100WBC; Nucleated Red Blood Cells % 1.4 %; Platelet Count 117 10^3/cmm (157-399); Red Blood Count 4.95 10^6/uL (3.85-5.65); Red Cell Distribution Width 15.1 % (12.1-15.1); White Blood Count 10.58 10^3/uL (3.29-11.43)
[2023-02-28 03:58] LABS: Ammonia 46 umol/L (16-60)
[2023-02-28 04:00] LABS: Anion Gap 13.5 (5-19); Blood Urea Nitrogen 37 mg/dL (8-23); Calcium 8.6 mg/dL (8.5-10.5); Carbon Dioxide 30 mmol/L (22-29); Chloride 96 mmol/L (98-107); Glomerular Filtration Rate 112.5 mL/min (90-130); Glucose 160 mg/dL (65-115); Magnesium 2.4 mg/dL (1.7-2.3); Osmolality Calculated 292 mOsm/kg (285-295); Phosphorus 3.2 mg/dL (2.5-4.5); Potassium 4.5 mmol/L (3.5-5.1); Sodium 135 mmol/L (136-145)
[2023-02-28] MEDS: pantoprazole 40 mg SDV IVP (07:07)
--- NOTE | 2023-02-28 07:23 | P.PN_ITS ---
Subjective 2 Subjective: Yesterday the patient had more respiratory distress and was placed on BiPAP. He is chronically hypercarbic and mildly acidotic. He was given Solu-Medrol and was given Lasix. For some reason another CT of his abdomen was done. A Linares catheter was placed and an attempt at a PICC line was made. Today he states he has not felt this good in a month. His breathing is better. He does not have any pain. He has never had chest pain. The stress test is pending. Vitals/I&O/Wt Last Vital Signs Temp 98.0 F 02/28/23 04:30 Pulse 112 H 02/28/23 06:00 Resp 20 H 02/28/23 04:30 BP 131/96 02/28/23 04:45 Pulse Ox 96 02/28/23 06:30 O2 Del Method High Flow Nasal Cannula 02/28/23 04:30 O2 Flow Rate 3 02/28/23 03:14 FiO2 30 02/27/23 23:19 02/27/23 02/28/23 02/28/23 22:59 06:59 14:59 Intake Total 480 / 480 Output Total 1750 / 1750 200 / 1950 Balance -1750 / -575.667 -200 / -775.667 480 / 480 Weight last 48 hrs Weight 112 lb Weight 113 lb Physical Exam 2 Narrative: GENERAL: In general he looks better today but still looks much older than his stated age and is cachectic looking chronically ill HEENT: Exam within normal limits. NECK: Supple without jugular vein distention. The carotid upstroke is normal without bruits. BACK: Exam normal. LUNGS: Clear. HEART: Regular rate and rhythm. ABDOMEN: Benign without organomegaly or tenderness. EXTREMITIES: No edema. NEUROLOGIC: Exam normal. SKIN: Unremarkable. Urinary Catheter Management: Linares: Cath Placed During This Visit: yes Reason for Continuing Indwelling Catheter: Accurate Measurement of Urinary Output in Critically Ill Patients Urinary Catheter Date of Insertion: 02/27/23 Urinary Catheter Time of Insertion: 14:51 Data 02/28/23 03:25 02/28/23 03:25 Micro: Microbiology 02/26/23 18:24 Blood Culture - Preliminary Blood NEGATIVE TO DATE 02/26/23 18:20 Blood Culture - Preliminary Blood NEGATIVE TO DATE 02/27/23 05:08 Gram Stain - Final Sputum - Expectorated Sputum A&P Assessment and plan (1) Acute CHF (congestive heart failure): (2) Left ventricular dysfunction: (3) Tobacco abuse: (4) Acute on chronic HFrEF (heart failure with reduced ejection fraction): (5) Pulmonary HTN: (6) Weight loss: (7) Malnourished: (8) Gastritis: (9) Esophagitis: (10) Duodenitis: (11) Gastric ulcer: Qualifiers: Gastric ulcer chronicity: acute Gastric ulcer complication status: w ithout hemorrhage or perforation Qualified Code(s): K25.3 - Acute gastric ulcer without hemorrhage or perforation (12) COPD (chronic obstructive pulmonary disease): Qualifiers: COPD type: unspecified COPD Qualified Code(s): J44.9 - Chronic obstructive pulmonary disease, unspecified (13) COPD exacerbation: Plan His shortness of breath is a combination of severe underlying end-stage COPD and a low ejection fraction. He is not in cardiogenic shock. We will have difficulty adding beta-blockers and afterload reducing agents because of his relatively low blood pressure. He is not a good candidate for coronary angiography and not a good candidate for a defibrillator. We will continue to manage him medically and hopefully be able to continue this based on the results of the stress test. The stress test is primarily for risk stratification. Once again, I do not feel he needs to be in the ICU. Attestations 2 Medical Necessity Statement*: Hospitalization for management of above-mentioned medical problems and Moderate Time for a total of 35 minutes, includes reviewing past or interval history, examining/interviewing patient, counseling patient/family/other support, updating patient/family/other support, discussing plan of care with staff, communicating with other healthcare providers and documenting encounter Diagnoses Acute CHF (congestive heart failure) I50.9 Left ventricular dysfunction I51.9 Tobacco abuse Z72.0 Acute on chronic HFrEF (heart failure with reduced ejection fraction) I50.23 Pulmonary HTN I27.20 Weight loss R63.4 Malnourished E46 Gastritis K29.70 Esophagitis K20.90 Duodenitis K29.80 Acute gastric ulcer without hemorrhage or perforation K25.3 Gastric ulcer chronicity: acute Gastric ulcer complication status: without hemorrhage or perforation Chronic obstructive pulmonary disease, unspecified COPD type J44.9 COPD type: unspecified COPD COPD exacerbation J44.1
[2023-02-28] MEDS: regadenoson 0.4 Mg/5 ml Syringe IVP (08:02)
--- NOTE | 2023-02-28 08:53 | NMCV_ITS ---
NM madina perf SPECT r/s* [id number] José Collier Age: 67 Gender: M : 1955 Exam Date: 02/28/2023 07:22 Ordering Phys: Gustavo Whittington MD ([email or web address]) Technologist: CELESTINE [place] Exam Location: [facility] Indications: CHEST PAIN STRESS TEST Please see separate stress test report in [facility] for full findings IMAGE PROTOCOL Rest/Stress 1 Lexiscan Day Radiopharmaceutical Dose (mCi) Administration Site Administered by Rest: Tc-99m 10.9 IV CELESTINE Argueta Sestamibi Stress:Tc-99m 32.7 IV CELESTINE Argueta Sestamibi Rest: 28-Feb-2023 60 Discovery 630 Stress: 28-Feb-2023 30 Discovery 630 0.4mg Lexiscan. Supine position only as patient was unable to lay prone. SPECT RESULTS Technical Quality: Excellent Raw Data Analysis: Normal Image Corrections: No attenuation or motion correction applied Summed Stress Score: 12 Summed Rest Score: 14 Summed Difference Score: 2 PERFUSION FINDINGS Medium sized perfusion abnormality of moderate severity of basal to apical inferior, mid to apical septal, apical lateral wall on rest and supine stress images. FUNCTIONAL RESULTS (calculated via Gated SPECT) Stress Image LV EF (%): 15 Stress EDV (mL):259 TID: 1.06 Stress ESV (mL):220 FUNCTIONAL FINDINGS: The left ventricle is dilated. Transient Ischemia Dilatation of 1.1. The left ventricular ejection fraction is severely reduced with a value of 15%. There is severe global hypokinesis. Markedly increased end-diastolic and end-systolic volumes. IMPRESSIONS 1. Medium sized predominantly fixed perfusion abnormality of moderate severity of basal to apical inferior, mid to apical septal, apical lateral scott. 2. This may represent old myocardial infarction in right coronary artery territory or attenuation artifact. 3. The left ventricular ejection fraction is severely reduced with a value of 15%. There is severe global hypokinesis. 4. EKG portion of the study will be reported separately. Layla New MD (Electronically Signed) Final Date: 28 February 2023 09:43 S
[2023-02-28] MEDS: methylPREDNISolone sod succ 40 mg/mL INJ IVP (09:19)
[2023-02-28] MEDS: cefTRIAXone 1,000 MG in sodium chloride 0.9% (plus) 50 ML 100 MG IV (09:20)
[2023-02-28] MEDS: spironolactone 25 mg Tablet 12.5 MG PO (09:20)
[2023-02-28] MEDS: azithromycin 250 mg Tablet 500 MG PO (09:20)
--- NOTE | 2023-02-28 10:28 | PM.PN ---
Subjective Subjective: He put out 1950cc of urine yesterday. He is AOx3 today. He states that he feels great. He is upset about the flavor of his breakfast. He denies fever, chills, CP, palpitations, SOB, abdominal pain, n/v. He has not had a BM. Vitals/I&O/Wt Last Vital Signs Temp 97.9 F 02/28/23 08:06 Pulse 115 H 02/28/23 10:00 Resp 18 02/28/23 10:00 BP 142/114 02/28/23 09:45 Pulse Ox 98 02/28/23 10:00 O2 Del Method High Flow Nasal Cannula 02/28/23 04:30 O2 Flow Rate 3 02/28/23 03:14 FiO2 30 02/27/23 23:19 02/27/23 02/28/23 02/28/23 22:59 06:59 14:59 Intake Total 770 / 770 Output Total 1750 / 1750 200 / 1950 Balance -1750 / -575.667 -200 / -775.667 770 / 770 Weight last 48 hrs Weight 50.802 kg Weight 51.256 kg Physical Exam Const: GENERAL APPEARANCE: cooperative, in distress, disheveled, ill appearing, frail appearing and appears older than stated age; not comfortable NUTRITIONAL APPEARANCE: cachectic ORIENTATION/CONSCIOUSNESS: Yes awake, Yes oriented to person, Yes oriented to place and Yes oriented to time HENMT: COMMON NORMALS: normocephalic, atraumatic and external ears normal HEAD & SCALP: normocephalic and atraumatic EXTERNAL EAR: Yes external ears normal MOUTH: Normal oral and palatal mucosa present THROAT: posterior oropharynx normal Eye: COMMON NORMALS: Equal, round and reactive pupils present and conjunctivae normal CONJUNCTIVA: Yes conjunctivae normal PUPIL: Yes Equal, round and reactive pupils present EOM: No EOM abnormal Neck/C-Spine: COMMON NORMALS: Thyroid normal GENERAL: Yes normal visual inspection and Yes trachea midline THYROID: Thyroid normal CAROTIDS: No bruit OTHER: Difficult to appreciate carotid bruit given his respiratory distress. Lymph: LYMPHATIC: No lymphadenopathy Resp: OTHER: In respiratory distress, with use of accessory muscles. Crackles and diminished breath sounds in the bilateral lower lung gardner with bilateral expiratory wheezes in all bilateral lung gardner. GI: OTHER: Nontender, nondistended, no guarding, no rigidity, no rebound tenderness. Bowel sounds positive. : OTHER: valdez catheter placed on 02/27/2023 Extremity: GENERAL: No clubbing, Yes cyanosis and No edema Neuro: SENSORIUM/ORIENTATION: Yes oriented to person, Yes oriented to place and Yes oriented to time CRANIAL NERVES: Yes CN normal except as noted SPEECH: speech normal MOTOR EXAM: 5/5 motor strength present throughout and Normal motor muscle tone present throughout Psych: COMMON NORMALS: Normal thought process present and speech normal APPEARANCE: Yes unkempt and Yes disheveled ATTITUDE: Yes calm and Yes engaged ACTIVITY/MOTOR BEHAVIOR: Yes appropriate eye contact SPEECH: Yes normal speech MOOD & AFFECT: Yes sad and Yes tearful THOUGHT PROCESS: Normal thought process present THOUGHT CONTENT: Yes Normal thought content present ATTENTION/CONCENTRATION: Yes attention grossly intact Skin: COMMON NORMALS: no rashes or lesions noted GENERAL SKIN EXAM: no rashes or lesions noted Urinary Catheter Management: Valdez: Cath Placed During This Visit: yes Reason for Continuing Indwelling Catheter: Accurate Measurement of Urinary Output in Critically Ill Patients Urinary Catheter Date of Insertion: 02/27/23 Urinary Catheter Time of Insertion: 14:51 Data 02/28/23 03:25 02/28/23 03:25 Micro: Microbiology 02/26/23 18:24 Blood Culture - Preliminary Blood NEGATIVE TO DATE 02/26/23 18:20 Blood Culture - Preliminary Blood NEGATIVE TO DATE 02/27/23 05:08 Gram Stain - Final Sputum - Expectorated Sputum A&P Assessment and plan (1) COPD exacerbation: (2) Acute on chronic HFrEF (heart failure with reduced ejection fraction): (3) Gastric ulcer: Qualifiers: Gastric ulcer chronicity: acute Gastric ulcer complication status: without hemorrhage or perforation Qualified Code(s): K25.3 - Acute gastric ulcer without hemorrhage or perforation (4) Tobacco abuse: (5) Transaminitis: Plan Mr Collier is a 67yo man w/COPD and CHF, who presented to the ED on 02/25/2023 not on O2, for worsening dyspnea. Prior to this admission, he initially presented to his PCP's office w/ complaints of diarrhea, and episode of emesis, a cough and dyspnea. He was diagnosed with COPD exacerbation and viral gastroenteritis, and given 1 g of Rocephin Decadron 10 mg IM, & promethazine. He then presented on 02/16/2023, to [facility]'s ED, with complaints of 3 days of worsening dyspnea. He was diagnosed with COPD exacerbation. His CXR on 02/16/2023 showed cardiomegaly with trace L. Pleural effusion as well as areas of bilateral mid to lower lung atelectasis. It also showed COPD and a few lung opacities concerning for mild lymphadenopathy. He was discharged with 60 mg p.o. daily of prednisone and 7 days of doxycycline p.o. twice daily. He then presented for the second time to [facility]'s ED on 02/25/2023, with complaints of increased dyspnea and productive cough of bloody sputum as well as vomiting. His CXR on 02/25 was unchanged from 02/16. He was admitted for hemoptysis. On admission, a CTA chest abdomen and pelvis were ordered that showed an inflammed gastric ulcer in the posterior distal body of the stomach, mild fatty infiltration of the liver, and diffuse moderate gallbladder thickening, concerning for cystitis. The general surgeon, Dr. Leal was consulted. A TTE was also ordered, given that his BNP was highly elevated, but he did not look fluid overloaded. His TTE, done on 02/25/2023, showed an EF of 10% with global LV hypokinesis, moderately severe MV regurg, mild to moderate tricuspid valve regurg, and moderate pulmonary HTN with an RVSP of 50.2 mmHg. Based on these new revelations, the senior project accountant was also consulted. 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 Biopsies were obtained from the antrum, the lower third of the esophagus, the gastric cardia, antrum, and second part of the duodenum. Post EGD, he quickly complained of being dyspneic. He became tachycardic and hypotensive. Given that he just had an EGD, there was concern for bowel perforation, so a stat CT abdomen pelvis was repeated, a CXR was also ordered. He was started on a PPI drip. He was given a duoneb treatment w/ Xopenex. An ABG was ordered that was 7 point 4/44/58.8 on room air, so he was placed on 2L NC. His lactic acid was 4.1, and an LDH and Trop T series were ordered. An EKG was done that showed ST depressions in V5 and V6. He was also started on midodrine for his hypotension. He clinically improved w/ breathing treatments. His CT abd/pelvis was negative for bowel perforation. 1)Neuro/Psych 2)Cardio #Hypotension - Trend Trop T. Start Midodrine 5mg TID. #Acute on chronic HFrEF: EF of 10%. #Pulmonary HTN - Cardiology following. Plan for stress test today. - Give another dose of IV Lasix 3)Pulm #SIRS: due his COPD. His leukocytosis may also be due to the steroids #Acute COPD exacerbation: D/c'ed Dexamethasone. Increased IV Soludmedrol to 60mg BID. On Xopenex q4h and ipratropium q4h. - Consulted Pulm regarding his options in the setting of an EF of 10% #Acute hypoxic/hypercapneic respiratory failure: On BiPAP. Recheck ABG in 2 hrs 4)GI #Posterior gastric ulcer #Gastritis w/ Esophagitis #Flood's Esophagus #Duodenitis - noted on 02/26/2023 EGD - PPI IV BIDAC pushes - switch to PO today, 02/28/2023 #Severe Protein Calorie Malnutrition:Spoke w/ Teacher Kindergarten who will recommend supplements #Mild proctitis #Constipation: Give Milk of Magnesia on 02/28/2023. #Transaminitis: Possibly due to congestive Hepatopathy. 5)Renal - Monitor renal fxn. - Valdez placed on 02/27/2023. Plan to remove it soon. 6)ID BCx negative. D/c'ed Azithromycin IV b/c it is in 250cc, and give him po instead. Contiue Ceftriaxone IV Heme 7)MSK - PT/OT 8)Derm: No acute issues at this time DVT ppx: Lovenox Per discussion w/ his family members, his sister, the patient is DNR, but he is DO intubate. Dispo: Transfer to the floor today Attestations Medical Necessity Statement*: Remains hospitalized for stress test results, further diuresis. At high risk for decompensation. Coding Level of Care Code 31149 Diagnoses COPD exacerbation J44.1 Acute on chronic HFrEF (heart failure with reduced ejection fraction) I50.23 Acute gastric ulcer without hemorrhage or perforation K25.3 Gastric ulcer chronicity: acute Gastric ulcer complication status: without hemorrhage or perforation Tobacco abuse Z72.0 Transaminitis R74.01
[2023-02-28 10:53] LABS: Aspartate Amino Transferase 326 U/L (0-40); Gamma Glutamyl Transferase 493 U/L (8-61); Lactate Dehydrogenase 702 U/L (135-225)
[2023-02-28 11:06] LABS: Alanine Aminotransferase 778 U/L (0-41)
[2023-02-28 11:40] LABS: CENTROMERE B ANTIBODY <1.0 NEG AI (<1.0 NEG); JO-1 ANTIBODY <1.0 NEG AI (<1.0 NEG); RNP ANTIBODY <1.0 NEG AI (<1.0 NEG); SCL-70 ANTIBODY <1.0 NEG AI (<1.0 NEG); SJOGREN'S ANTIBODY (SS-A) <1.0 NEG AI (<1.0 NEG); SM ANTIBODY <1.0 NEG AI (<1.0 NEG); SS-B <1.0 NEG AI (<1.0 NEG)
[2023-02-28] MEDS: FUROsemide 10 mg/mL SDV 10mL 60 MG IVP (12:02)
[2023-02-28] MEDS: magnesium hydroxide 30 mL UDC PO (12:02)
[2023-02-28] MEDS: albumin 25 G/100 ML BAG 60 G IV (12:02)
[2023-02-28 13:10] LABS: COMPLEMENT, TOTAL (CH50) 32 U/mL (31-60)
--- NOTE | 2023-02-28 14:08 | PC.SOCIAL ---
IMM UPdate pg 2 of IMM updated and reviewed w/ patient. Copy provided and Copy dated, initialed and placed in chart.
--- NOTE | 2023-02-28 15:41 | PC.NURSE ---
received into room 107 via w/c from icu,at 1515.pt is alert and oriented x 4.cooperative.denies pain at present.no sob noted.oriented to room environment.instructed to contact staff for any sob,chest pain,or for any concerns at all.pt verb understanding of instructions
[2023-02-28 15:49] LABS: ANA SCREEN, IFA NEGATIVE (NEGATIVE)
--- NOTE | 2023-02-28 16:40 | P.PN_ITS ---
Subjective 2 Subjective: pt had stress test today morning which revealed a low ejection fraction and a fixed defect in the distribution of the right coronary artery that could very well represent an attenuation artifact. There was no ischemia and this is a relatively low risk scan. he is sitting out of bed to chair and had decent conversation without getting agitated His blood pressures have been stable. Continues to be on diuretic regimen he has bilateral wheeze but tells me that his breathing is ok. He tells me that he uses Advair and Spiriva at home as well as albuterol as needed does not use oxygen. Does not follow-up with pulmonary. Medications: Reviewed: Yes Vitals/I&O/Wt Last Vital Signs Temp 98.6 F 02/28/23 16:00 Pulse 114 H 02/28/23 16:00 Resp 21 H 02/28/23 16:00 BP 128/88 02/28/23 16:00 Pulse Ox 95 02/28/23 16:00 O2 Del Method Nasal Cannula 02/28/23 16:00 O2 Flow Rate 3 02/28/23 15:30 FiO2 30 02/27/23 23:19 02/28/23 02/28/23 02/28/23 06:59 14:59 22:59 Intake Total 1110 / 1110 Output Total 200 / 1950 1100 / 1100 Balance -200 / -422.649 3962 / 1110 -1100 / 10 Weight last 48 hrs Weight 112 lb Weight 113 lb Physical Exam 2 Narrative: General: alert, NAD HEENT: conj clear, EOMI, PERRL, mmm, Neck: supple, no meningismus Heme: no cervical LAP Respiratory: Inspection: No visible deformity of the chest wall Palpation: Trachea is mildly deviated to the right, bilateral symmetric expansion Percussion: Bilateral tympanic percussion note both anterior and posteriorly Auscultation: Bilateral diffuse expiratory wheeze Cardiovascular: rrr, nl s1s2, no mrg Abdomen: soft, nt, nd, no r/g, bs+ Extremities: pulses +, no edema, no c/c : no CVA tenderness Skin: intact, no rash MSK: no back or neck pain Neurologic: grossly intact Urinary Catheter Management: Linares: Cath Placed During This Visit: yes Reason for Continuing Indwelling Catheter: Accurate Measurement of Urinary Output in Critically Ill Patients Urinary Catheter Date of Insertion: 02/27/23 Urinary Catheter Time of Insertion: 14:51 Data 03/01/23 03:29 03/01/23 03:29 Other Labs: Radiology Impressions Chest/Abdomen/Pelvis CT 02/25/23 12:02 IMPRESSION: 1. Interval development of findings suspicious for esophagitis in the mid/distal esophagus. Upper endoscopy may be obtained for further evaluation as clinically indicated. 2. No evidence for pulmonary embolism. 3. Bronchial wall thickening in the right and left lower lobes. Findings could be due to emphysematous changes versus bronchitis. 4. Mild body wall edema. 5. Incidental/nonacute findings are listed in the report. IMPRESSION: 1. Inflamed gastric ulcer in the posterior distal body of the stomach. Increased density layering in the lumen of the stomach, this could represent partially digested medications however a gastric bleed can not be ruled out. Upper endoscopy may be obtained for further evaluation as clinically indicated. 2. Mild fatty infiltration of the liver. 3. Diffuse, moderate bladder wall thickening. In the correct clinical setting, this may suggest cystitis. Recommend correlation with laboratory findings. Alternatively, this may be secondary to chronic outlet obstruction. 4. Mild body wall edema. 5. Incidental/nonacute findings are listed in the report. ADDENDUM: 02/25/23 1701 THIS REPORT CONTAINS FINDINGS THAT MAY BE CRITICAL TO PATIENT CARE. The findings were verbally communicated via telephone conference with KESHA Easley at 4:59 PM FRONT DESK on 02/25/2023. The findings were acknowledged and understood. Abdomen/Pelvis CT 02/26/23 17:00 IMPRESSION: 1. Borderline to mild cardiomegaly. 2. Interval appearance of moderate thickening in the distal esophageal wall suggesting possible esophagitis. 3. 9 mm Hutch diverticulum in the left posterolateral urinary bladder wall. Axial series 3, image 65. 9 mm gastrohepatic ligament lymph node which may be reactive versus neoplastic. 4. Bowel wall thickening in the rectum consistent with mild proctitis. 5. Dilated air-filled transverse colon and hepatic flexure with moderate retained feces in the ascending colon. 6. No obvious pneumoperitoneum, peritoneal fluid or retroperitoneal hemorrhage. Chest X-Ray 02/26/23 17:10 IMPRESSION: 1. Mild cardiomegaly. 2. Mild peribronchial thickening and/or mild perihilar linear markings consistent with bronchitis and/or viral pneumonitis and/or reactive airway disease and/or atypical pulmonary interstitial edema. 3. Stable COPD . Laboratory Results WBC 12.25 10^3/uL (3.29-11.43) H 03/01/23 03:29 Corrected WBC Cancelled 02/27/23 16:00 RBC 4.46 10^6/uL (3.85-5.65) 03/01/23 03:29 Hgb 12.40 g/dL (11.27-16.99) 03/01/23 03:29 Hct 37.9 % (37-53) 03/01/23 03:29 MCV 85.0 fl (82-101) 03/01/23 03:29 MCH 27.8 pg (27-33) 03/01/23 03:29 MCHC 32.7 g/dL (30-55) 03/01/23 03:29 RDW 14.7 % (12.1-15.1) 03/01/23 03:29 Plt Count 103 10^3/cmm (157-399) L 03/01/23 03:29 MPV 10.6 fL (7.4-10.4) H 03/01/23 03:29 Gran % Cancelled 02/27/23 16:00 Neut % (Auto) 89.0 % 03/01/23 03:29 Lymph % (Auto) 1.9 % 03/01/23 03:29 [place] % (Auto) 8.2 % 03/01/23 03:29 Eos % (Auto) 0.1 % 03/01/23 03:29 Baso % (Auto) 0.2 % 03/01/23 03:29 Neut # (Auto) 10.92 10^3/uL (1.8-7.7) H 03/01/23 03:29 Lymph # (Auto) 0.2 10^3/uL (0.8-4.8) L 03/01/23 03:29 [place] # (Auto) 1.0 10^3/uL (0.2-0.9) H 03/01/23 03:29 Eos # (Auto) 0.0 10^3/uL (0.0-0.8) 03/01/23 03:29 Baso # (Auto) 0.0 10^3/uL (0.0-0.1) 03/01/23 03:29 Absolute Gran (auto) Cancelled 02/27/23 16:00 Nucleated RBC % (auto) 1.0 % 03/01/23 03:29 Nucleated RBCs # 0.1 /100WBC 03/01/23 03:29 ESR 1 mm/hr (0-10) 02/25/23 09:34 PT 17.60 SECONDS (12.1-14.9) H 02/25/23 17:45 INR 1.39 (0.8-1.2) H 02/25/23 17:45 D-Dimer 6.28 ug/mLFEU (0-0.59) H 02/25/23 05:19 Specimen Type Arterial 02/27/23 14:31 Sample Site Radial, left 02/27/23 14:31 ABG pH 7.25 (7.35-7.45) L 02/27/23 14:31 ABG pCO2 51.2 mmHg (35-45) H 02/27/23 14:31 ABG pO2 134.0 mmHg (80.0-100.0) H 02/27/23 14:31 ABG PO2/FiO2 Ratio 0 02/27/23 14:31 ABG HCO3 22.5 mmol/L (22-26) 02/27/23 14:31 ABG O2 Saturation 99.4 02/27/23 14:31 ABG Base Excess -5.2 mmol/L (-2.0-2.0) L 02/27/23 14:31 Abelino Test Pos 02/27/23 14:31 A-a O2 Gradient 21.2 mmHg (5-10) H 02/27/23 14:31 Hematocrit 43.7 % (42-52) 02/27/23 14:31 Hgb O2 Saturation 97.1 % (95-100) 02/27/23 14:31 Carboxyhemoglobin 1.5 %THgb (0.4-20.1) 02/27/23 14:31 Methemoglobin 0.7 % (0.4-1.5) 02/27/23 14:31 Total Hemoglobin 14.3 g/dL (14-18) 02/27/23 14:31 Sodium 136.0 mmol/L (131-143) 02/27/23 14:31 Potassium 5.5 mmol/L (3.5-5.0) H 02/27/23 14:31 Glucose 212.0 mg/dL (70-115) H 02/27/23 14:31 Ionized Calcium 1.1 mmol/L (1.1-1.4) 02/27/23 14:31 O2 Delivery Device Bipap 02/27/23 14:31 O2 Liters/Min 2.0 % 02/26/23 16:58 FiO2 50.0 % 02/27/23 14:31 Business Development Director ID Cak 02/27/23 14:31 Sodium 136 mmol/L (136-145) 03/01/23 03:29 Potassium 4.4 mmol/L (3.5-5.1) 03/01/23 03:29 Chloride 94 mmol/L (98-107) L 03/01/23 03:29 Carbon Dioxide 33 mmol/L (22-29) H 03/01/23 03:29 Anion Gap 13.4 (5-19) 03/01/23 03:29 BUN 36 mg/dL (8-23) H 03/01/23 03:29 Creatinine 0.6 mg/dL (0.7-1.2) L 03/01/23 03:29 GFR Calculation 134.4 mL/min (90-130) H 03/01/23 03:29 Glucose 168 mg/dL (65-115) H 03/01/23 03:29 Estimat Average Glucose 134 02/25/23 09:34 Hemoglobin A1c 6.3 % (4.0-6.0) H 02/25/23 09:34 Calculated Osmolality 294 mOsm/kg (285-295) 03/01/23 03:29 Lactate 4.3 mmol/L (0.5-2.2) H* 02/27/23 16:00 Calcium 8.6 mg/dL (8.5-10.5) 03/01/23 03:29 Phosphorus 2.2 mg/dL (2.5-4.5) L 03/01/23 03:29 Magnesium 2.2 mg/dL (1.7-2.3) 03/01/23 03:29 Total Bilirubin 1.8 mg/dL (0.15-1.2) H 02/27/23 21:04 Direct Bilirubin 0.90 mg/dL (0.00-0.30) H 02/27/23 21:04 GGT 448 U/L (8-61) H 03/01/23 03:29 AST 108 U/L (0-40) H 03/01/23 03:29 ALT 530 U/L (0-41) H 03/01/23 03:29 Alkaline Phosphatase 292 U/L (40-130) H 02/27/23 21:04 Ammonia 46 umol/L (16-60) 02/28/23 03:25 Lactate Dehydrogenase 450 U/L (135-225) H 03/01/23 03:29 Troponin T Baseline 34 ng/L (0-15) H 02/26/23 18:20 Troponin T 120 Minute 26.07 ng/L (0-15) H 02/26/23 21:04 Delta Troponin T -7.93 ABS# (0-10) L 02/26/23 21:04 Troponin T Hi Sens 6Hr 25.98 ng/L (0-15) H 02/27/23 02:02 Troponin T Hi Sens 6Hr Delta -8.02 ng/L (0-12) L 02/27/23 02:02 C-Reactive Protein 21.0 mg/L (0.0-4.9) H 02/26/23 03:05 NT-Pro-B Natriuret Pep 29067 pg/mL (0-125) H 02/26/23 18:20 Total Protein 6.1 g/dL (6.6-8.7) L 02/27/23 21:04 Albumin 3.7 g/dL (3.5-5.2) 02/27/23 21:04 Globulin 2.4 g/dL (1.3-4.6) 02/27/23 21:04 Lipase 15 U/L (13-60) 02/25/23 09:34 Vitamin B12 > 2000 pg/mL (232-1245) H 02/25/23 02:22 Procalcitonin 0.13 ng/mL (0-0.5) 02/25/23 08:10 TSH 2.61 uIU/mL (0.27-4.20) 02/25/23 09:34 Urine Color Dark yellow (Yellow) 02/27/23 03:30 Urine Appearance Sl hazy (CLEAR) A 02/27/23 03:30 Urine pH 5 (5-7) 02/27/23 03:30 Ur Specific [place] 1.020 (1.005-1.030) 02/27/23 03:30 Urine Protein 1+ (Negative) H 02/27/23 03:30 Urine Glucose (UA) Norm (Normal) 02/27/23 03:30 Urine Ketones Negative (Negative) 02/27/23 03:30 Urine Blood 2+ (Negative) H 02/27/23 03:30 Urine Nitrate Negative (Negative) 02/27/23 03:30 Urine Bilirubin Neg (Negative) 02/27/23 03:30 Urine Urobilinogen Neg mg/dL (Negative) 02/27/23 03:30 Ur Leukocyte Esterase Negative (Negative) 02/27/23 03:30 Urine RBC 0-4 /hpf (0-2) H 02/27/23 03:30 Urine WBC 0-4 /hpf (0-5) H 02/27/23 03:30 Ur Squamous Epith Cells None /hpf (0-5) 02/27/23 03:30 Ur Transition Epith Cell 0-4 /hpf 02/27/23 03:30 Amorphous Sediment Not Reportable 02/27/23 03:30 Urine Bacteria 1+ /hpf (NONE) H 02/27/23 03:30 Urine Mucus 3+ /hpf 02/27/23 03:30 Urine Opiates Screen Positive ng/mL (Negative) H 02/26/23 01:00 Ur Barbiturates Screen Negative ng/mL (Negative) 02/26/23 01:00 Ur Phencyclidine Scrn Negative ng/mL (Negative) 02/26/23 01:00 Ur Amphetamines Screen Negative ng/mL (Negative) 02/26/23 01:00 U Benzodiazepines Scrn Negative ng/mL (Negative) 02/26/23 01:00 Urine Cocaine Screen Negative ng/mL (Negative) 02/26/23 01:00 U Marijuana (THC) Screen Positive ng/mL (Negative) H 02/26/23 01:00 Ethyl Alcohol < 10 mg/dL (0-10) 02/25/23 15:38 MICHAEL IFA Animal Tis Res Negative (NEGATIVE) 02/25/23 09:34 KAREN-1 Antibody <1.0 neg AI (<1.0 NEG) 02/25/23 09:34 SS-A Antibody <1.0 neg AI (<1.0 NEG) 02/25/23 09:34 SS-B Antibody <1.0 neg AI (<1.0 NEG) 02/25/23 09:34 Sm (Bhat) Antibody <1.0 neg AI (<1.0 NEG) 02/25/23 09:34 LENS CEMENTER Antibody <1.0 neg AI (<1.0 NEG) 02/25/23 09:34 Scl-70 Antibody <1.0 neg AI (<1.0 NEG) 02/25/23 09:34 Centromere B Antibody <1.0 neg AI (<1.0 NEG) 02/25/23 09:34 Thyroid Peroxidase Ab 1 IU/mL (<9) 02/25/23 09:34 Complement C3c 63 mg/dL (82-185) L 02/25/23 09:34 Complement C4c 7 mg/dL (15-53) L 02/25/23 09:34 CH50 Classical Pathway 32 U/mL (31-60) 02/25/23 09:34 Blood Type O Positive 02/25/23 18:27 Rho(D) Type Rh positive 02/25/23 18:27 Antibody Screen Negative 02/25/23 18:27 Micro: Microbiology 02/27/23 05:08 Gram Stain - Final Sputum - Expectorated Sputum Sputum Culture - Preliminary Gram Negative Rods 02/26/23 18:24 Blood Culture - Preliminary Blood NEGATIVE TO DATE 02/26/23 18:20 Blood Culture - Preliminary Blood NEGATIVE TO DATE A&P Assessment and plan (1) Acute on chronic HFrEF (heart failure with reduced ejection fraction): (2) Pulmonary HTN: (3) Tobacco abuse: (4) COPD exacerbation: (5) Respiratory distress: (6) Goals of care, counseling/discussion: Plan #Respiratory distress-most likely secondary to flash edema secondary to underlying systolic CHF with EF 10% and Significant pulmonary hypertension 50 - Recommended to Continue diuretics; - If patient becomes hypotensive-he may need dobutamine plus Levophed - Follows up with cardiology and pt had stress test today morning which revealed a low ejection fraction and a fixed defect in the distribution of the right coronary artery that could very well represent an attenuation artifact. There was no ischemia and this is a relatively low risk scan. -Currently patient is on Aldactone #Significant paraseptal and centrilobular emphysema on CT chest In patient with significant smoking history - Needs PFTs as outpatient as well as adjustment of the inhalers #Hemoptysis/hematemesis-inpatient with esophagitis/gastritis/duodenitis/peptic ulcer-continue IV PPI -monitor H and H # Deranged LFTs - likely due to hepatic congestion # Goals of care discussion -He wanted limited resuscitation-intubation is okay with no resuscitation -I have explained given his underlying end-stage CHF-he is at high risk for paul intubation mortality. He verbalized understanding Attestations 2 Medical Necessity Statement*: Deferred to hospitalist Coding Level of Care Code Acute Code for [facility]g Fwd Diagnoses Acute on chronic HFrEF (heart failure with reduced ejection fraction) I50.23 Pulmonary HTN I27.20 Tobacco abuse Z72.0 COPD exacerbation J44.1 Respiratory distress R06.03 Goals of care, counseling/discussion Z71.89 Time Spent (min) 48
[2023-02-28] MEDS: pantoprazole DR 40 mg Tablet PO (17:55)
[2023-02-28] MEDS: budesonide 0.5 mg/2 mL Neb INHALATION (19:51)
[2023-02-28] MEDS: atorvastatin 40 mg Tablet PO (21:14)
--- NOTE | 2023-02-28 22:32 | ECG_ITS ---
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 Measurements Intervals [place] Rate: 109 P: 67 OR: 108 QRS: 40 QRSD: 111 T: 222 QT: 343 QTc: 463 Interpretive Statements SINUS TACHYCARDIA WITH SHORT OR INTERVAL POSSIBLE LEFT ATRIAL ENLARGEMENT [-0.1mV P-WAVE IN V1/V2] MODERATE INTRAVENTRICULAR CONDUCTION DELAY [110+ ms QRS DURATION] ST DEVIATION AND MARKED T-WAVE ABNORMALITY, CONSIDER LATERAL ISCHEMIA [-0.5+ mV T-WAVE IN I/aVL/V5/V6] ST DEVIATION AND MODERATE T-WAVE ABNORMALITY, CONSIDER INFERIOR ISCHEMIA [-0.1+ mV T-WAVE IN II/aVF] Compared to ECG 02/26/2023 23:17:31 Short OR interval now present Intraventricular conduction delay now present T-wave abnormality still present Possible ischemia still present Electronically Signed On 03-01-2023 7:16:36 DRIED FRUIT WASHER by Layla New M.D. [id number]
[2023-02-28] MEDS: nitroglycerin 0.4 mg sublingual Tablet SUBLINGUAL (22:36)
--- NOTE | 2023-02-28 23:20 | PC.NURSE ---
Patient stated that he was having chest pressure. Nitro administered, EKG performed and Dr Sheppard notified.
[2023-03-01] VITALS (13 sets, daily range): BP systolic 109–128; BP diastolic 80–92; PULSE 100–114; RESP 16–21; TEMP 36.5–36.7; O2SAT 92–98; BMI 16.7
[2023-03-01] MEDS: ipratropium 0.5 mg/2.5 mL Neb INHALATION ×6 (00:53→19:16)
[2023-03-01] MEDS: levalbuterol 1.25 mg/3 mL Neb INHALATION ×3 (00:53→19:16)
[2023-03-01 04:46] LABS: Alanine Aminotransferase 530 U/L (0-41); Aspartate Amino Transferase 108 U/L (0-40); Gamma Glutamyl Transferase 448 U/L (8-61); Lactate Dehydrogenase 450 U/L (135-225)
[2023-03-01 05:02] LABS: Basophils % 0.2 %; Eosinophils % 0.1 %; Hematocrit 37.9 % (37-53); Lymphocytes # 0.2 10^3/uL (0.8-4.8); Lymphocytes % 1.9 %; Mean Corpuscular HGB Conc 32.7 g/dL (30-55); Mean Corpuscular Hemoglobin 27.8 pg (27-33); Mean Platelet Volume 10.6 fL (7.4-10.4); Monocytes % 8.2 %; Neutrophils # 10.92 10^3/uL (1.8-7.7); Nucleated Red Blood Cells # 0.1 /100WBC; Platelet Count 103 10^3/cmm (157-399); Red Blood Count 4.46 10^6/uL (3.85-5.65); Red Cell Distribution Width 14.7 % (12.1-15.1); White Blood Count 12.25 10^3/uL (3.29-11.43)
[2023-03-01 05:56] LABS: Anion Gap 13.4 (5-19); Blood Urea Nitrogen 36 mg/dL (8-23); Calcium 8.6 mg/dL (8.5-10.5); Carbon Dioxide 33 mmol/L (22-29); Chloride 94 mmol/L (98-107); Glomerular Filtration Rate 134.4 mL/min (90-130); Glucose 168 mg/dL (65-115); Magnesium 2.2 mg/dL (1.7-2.3); Osmolality Calculated 294 mOsm/kg (285-295); Phosphorus 2.2 mg/dL (2.5-4.5); Potassium 4.4 mmol/L (3.5-5.1); Sodium 136 mmol/L (136-145)
[2023-03-01] MEDS: pantoprazole DR 40 mg Tablet PO ×2 (06:24→17:35)
[2023-03-01] MEDS: sucralfate 1 gm/10 mL Oral Liq UDC PO ×4 (06:24→23:20)
--- NOTE | 2023-03-01 06:40 | PC.NURSE ---
patient yelling at staff that he wants to see his family, that he has not seen them since he has been in hospital. Nurse explained to patient that she will call family and let them know he would like to see them. Dayshift nurse will be notified.
--- NOTE | 2023-03-01 07:41 | PM.PN ---
Subjective Subjective: José is somewhat agitated this morning. He does not like the food. He states he needs some fresh air and to smoke some cigarettes. He wants to go outside. His shortness of breath is chronic and stable. When I ask him if he had any pain he said yes it is my anxiety. He had a stress test yesterday which revealed a low ejection fraction which we already knew and a fixed defect in the distribution of the right coronary artery that could very well represent an attenuation artifact. There was no ischemia and this is a relatively low risk scan. His blood pressures have been stable. He is mildly tachycardic. Vitals/I&O/Wt Last Vital Signs Temp 98.0 F 03/01/23 07:34 Pulse 109 H 03/01/23 07:34 Resp 21 H 03/01/23 07:34 BP 124/85 03/01/23 07:34 Pulse Ox 93 03/01/23 07:34 O2 Del Method Nasal Cannula 03/01/23 07:34 O2 Flow Rate 2 03/01/23 03:14 FiO2 30 02/27/23 23:19 02/28/23 03/01/23 03/01/23 22:59 06:59 14:59 Intake Total 480 / 1590 240 / 1830 Output Total 1750 / 1750 275 / 2025 Balance -1270 / -160 -35 / -195 Weight last 48 hrs Weight 106 lb 7 oz Weight 112 lb Physical Exam Narrative: GENERAL: In general he is comfortable but upset HEENT: Exam within normal limits. NECK: Supple without jugular vein distention. The carotid upstroke is normal without bruits. BACK: Exam normal. LUNGS: Decreased breath sounds with increased expiratory phase. HEART: Regular rate and rhythm. ABDOMEN: Benign without organomegaly or tenderness. EXTREMITIES: No edema. NEUROLOGIC: Exam normal. SKIN: Unremarkable. Urinary Catheter Management: Linares: Cath Placed During This Visit: yes Reason for Continuing Indwelling Catheter: Accurate Measurement of Urinary Output in Critically Ill Patients Urinary Catheter Date of Insertion: 02/27/23 Urinary Catheter Time of Insertion: 14:51 Data 03/01/23 03:29 03/01/23 03:29 Micro: Microbiology 02/27/23 05:08 Gram Stain - Final Sputum - Expectorated Sputum Sputum Culture - Preliminary Gram Negative Rods A&P Assessment and plan (1) Acute CHF (congestive heart failure): (2) Left ventricular dysfunction: (3) Tobacco abuse: (4) Acute on chronic HFrEF (heart failure with reduced ejection fraction): (5) Pulmonary HTN: (6) Weight loss: (7) Malnourished: (8) Transaminitis: (9) Nausea & vomiting: (10) COPD (chronic obstructive pulmonary disease): Qualifiers: COPD type: unspecified COPD Qualified Code(s): J44.9 - Chronic obstructive pulmonary disease, unspecified (11) COPD exacerbation: Plan At this point the likelihood that his cardiomyopathy is ischemic in nature is very low given the results of the stress test. He should be treated medically for the cardiomyopathy. The difficulty will be getting him on the proper meds which may be difficult given his hemodynamics. I am going to increase the Aldactone to 25 mg daily today and add a very low-dose of a short acting beta-conrado. This is realizing the beta-conrado may worsen his pulmonary status. I will not add a afterload reducing agent at this point because of his rather tenuous blood pressure over the last several days. I do not think this man is a candidate for a defibrillator. Attestations Medical Necessity Statement*: Hospitalization for multiple medical problems Coding Level of Care Code Acute Code for [facility] Diagnoses Acute CHF (congestive heart failure) I50.9 Left ventricular dysfunction I51.9 Tobacco abuse Z72.0 Acute on chronic HFrEF (heart failure with reduced ejection fraction) I50.23 Pulmonary HTN I27.20 Weight loss R63.4 Malnourished E46 Transaminitis R74.01 Nausea & vomiting R11.2 Chronic obstructive pulmonary disease, unspecified COPD type J44.9 COPD type: unspecified COPD COPD exacerbation J44.1
[2023-03-01 08:35] LABS: THYROID PEROXIDASE ANTIBODIES 1 IU/mL (<9)
[2023-03-01] MEDS: nicotine 7 mg Patch 1 PATCH TRANSDERMA (08:49)
[2023-03-01] MEDS: methylPREDNISolone sod succ 40 mg/mL INJ IVP (08:49)
[2023-03-01] MEDS: metoprolol tartrate 25 mg Tablet 12.5 MG PO ×2 (08:49→17:35)
[2023-03-01] MEDS: cefTRIAXone 1,000 MG in sodium chloride 0.9% (plus) 50 ML 100 MG IV (08:50)
[2023-03-01] MEDS: spironolactone 25 mg Tablet PO (08:51)
[2023-03-01] MEDS: azithromycin 250 mg Tablet 500 MG PO (08:51)
[2023-03-01] MEDS: budesonide 0.5 mg/2 mL Neb INHALATION ×2 (08:55→19:16)
[2023-03-01] MEDS: LORazepam 2 mg/mL INJ 1 mL 0.5 MG IVP ×2 (10:43→17:35)
[2023-03-01] MEDS: atorvastatin 40 mg Tablet PO (20:05)
--- NOTE | 2023-03-01 22:28 | PM.PN ---
Subjective Subjective: His stress test on 02/28/2023 showed This morning, patient was started on Spironolactone and metoprolol tartrate 25mg BID by Cardiology. The patient met criteria for sepsis based on HR and leukocytosis. His sputum sample was positive for Pseudomonas aeruginosa. Two sets of BCx, lactate, and an ABG were ordered. His ABG was 7.44/53/100. Ceftriaxone was d/'kina. Levofloxacin was initiated. The patient complained that he felt dyspneic throughout the day. He denied f/c, CP, palpitations, dizziness, light headedness, abdominal pain, n/v. Vitals/I&O/Wt Last Vital Signs Temp 98.1 F 03/01/23 19:37 Pulse 110 H 03/01/23 19:37 Resp 18 03/01/23 19:37 BP 128/92 03/01/23 19:37 Pulse Ox 92 03/01/23 19:37 O2 Del Method Nasal Cannula 03/01/23 19:37 O2 Flow Rate 2 03/01/23 19:15 FiO2 30 02/27/23 23:19 03/01/23 03/01/23 03/01/23 06:59 14:59 22:59 Intake Total 240 / 1830 530 / 530 240 / 770 Output Total / 2024 400 / 400 Balance -35 / -195 530 / 530 -160 / 370 Weight last 48 hrs Weight 48.279 kg Weight 50.802 kg Physical Exam Const: GENERAL APPEARANCE: cooperative, in distress, disheveled, ill appearing, frail appearing and appears older than stated age; not comfortable NUTRITIONAL APPEARANCE: cachectic ORIENTATION/CONSCIOUSNESS: Yes awake, Yes oriented to person, Yes oriented to place and Yes oriented to time HENMT: COMMON NORMALS: normocephalic, atraumatic and external ears normal HEAD & SCALP: normocephalic and atraumatic EXTERNAL EAR: Yes external ears normal MOUTH: Normal oral and palatal mucosa present THROAT: posterior oropharynx normal Eye: COMMON NORMALS: Equal, round and reactive pupils present and conjunctivae normal CONJUNCTIVA: Yes conjunctivae normal PUPIL: Yes Equal, round and reactive pupils present EOM: No EOM abnormal Neck/C-Spine: COMMON NORMALS: Thyroid normal GENERAL: Yes normal visual inspection and Yes trachea midline THYROID: Thyroid normal CAROTIDS: No bruit OTHER: Difficult to appreciate carotid bruit given his respiratory distress. Lymph: LYMPHATIC: No lymphadenopathy Resp: OTHER: diminished breath sounds in all lung gardner bilaterally. GI: OTHER: Nontender, nondistended, no guarding, no rigidity, no rebound tenderness. Bowel sounds positive. : OTHER: valdez catheter placed on 02/27/2023 Extremity: GENERAL: No clubbing, Yes cyanosis and No edema Neuro: SENSORIUM/ORIENTATION: Yes oriented to person, Yes oriented to place and Yes oriented to time CRANIAL NERVES: Yes CN normal except as noted SPEECH: speech normal MOTOR EXAM: 5/5 motor strength present throughout and Normal motor muscle tone present throughout Psych: COMMON NORMALS: Normal thought process present and speech normal APPEARANCE: Yes unkempt and Yes disheveled ATTITUDE: Yes calm and Yes engaged ACTIVITY/MOTOR BEHAVIOR: Yes appropriate eye contact SPEECH: Yes normal speech MOOD & AFFECT: Yes sad and Yes tearful THOUGHT PROCESS: Normal thought process present THOUGHT CONTENT: Yes Normal thought content present ATTENTION/CONCENTRATION: Yes attention grossly intact Skin: COMMON NORMALS: no rashes or lesions noted GENERAL SKIN EXAM: no rashes or lesions noted Urinary Catheter Management: Valdez: Cath Placed During This Visit: yes Reason for Continuing Indwelling Catheter: Accurate Measurement of Urinary Output in Critically Ill Patients Urinary Catheter Date of Insertion: 02/27/23 Urinary Catheter Time of Insertion: 14:51 Data 03/02/23 05:33 03/02/23 05:33 Micro: Microbiology 02/27/23 05:08 Gram Stain - Final Sputum - Expectorated Sputum Sputum Culture - Final Pseudomonas aeruginosa A&P Assessment and plan (1) COPD exacerbation: (2) Acute on chronic HFrEF (heart failure with reduced ejection fraction): (3) Gastric ulcer: Qualifiers: Gastric ulcer chronicity: acute Gastric ulcer complication status: without hemorrhage or perforation Qualified Code(s): K25.3 - Acute gastric ulcer without hemorrhage or perforation (4) Tobacco abuse: (5) Transaminitis: Plan Mr Collier is a 67yo man w/COPD and CHF, who presented to the ED on 02/25/2023 not on O2, for worsening dyspnea. Prior to this admission, he initially presented to his PCP's office w/ complaints of diarrhea, and episode of emesis, a cough and dyspnea. He was diagnosed with COPD exacerbation and viral gastroenteritis, and given 1 g of Rocephin Decadron 10 mg IM, & promethazine. He then presented on 02/16/2023, to [facility]'s ED, with complaints of 3 days of worsening dyspnea. He was diagnosed with COPD exacerbation. His CXR on 02/16/2023 showed cardiomegaly with trace L. Pleural effusion as well as areas of bilateral mid to lower lung atelectasis. It also showed COPD and a few lung opacities concerning for mild lymphadenopathy. He was discharged with 60 mg p.o. daily of prednisone and 7 days of doxycycline p.o. twice daily. He then presented for the second time to [facility]'s ED on 02/25/2023, with complaints of increased dyspnea and productive cough of bloody sputum as well as vomiting. His CXR on 02/25 was unchanged from 02/16. He was admitted for hemoptysis. On admission, a CTA chest abdomen and pelvis were ordered that showed an inflammed gastric ulcer in the posterior distal body of the stomach, mild fatty infiltration of the liver, and diffuse moderate gallbladder thickening, concerning for cystitis. The general surgeon, Dr. Leal was consulted. A TTE was also ordered, given that his BNP was highly elevated, but he did not look fluid overloaded. His TTE, done on 02/25/2023, showed an EF of 10% with global LV hypokinesis, moderately severe MV regurg, mild to moderate tricuspid valve regurg, and moderate pulmonary HTN with an RVSP of 50.2 mmHg. Based on these new revelations, the histology specialist was also consulted. 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 Biopsies were obtained from the antrum, the lower third of the esophagus, the gastric cardia, antrum, and second part of the duodenum. Post EGD on 02/26/2023, he quickly complained of being dyspneic. He became tachycardic and hypotensive. Given that he just had an EGD, there was concern for bowel perforation, so a stat CT abdomen pelvis was repeated, a CXR was also ordered. He was started on a PPI drip. He was given a duoneb treatment w/ Xopenex. An ABG was ordered that was 7 point 4/44/58.8 on room air, so he was placed on 2L NC. His lactic acid was 4.1, and an LDH and Trop T series were ordered. An EKG was done that showed ST depressions in V5 and V6. He was also started on midodrine for his hypotension. He clinically improved w/ breathing treatments. His CT abd/pelvis was negative for bowel perforation. On 02/27/2023, he had another episode of dyspnea, where he went into a tripod position. The patient was given Lasix IVP and placed on BiPAP. Pulmonology was consulted and family was called. The patient was made DNR, but ok to intubate by his sister. On 02/28/2023, he underwent a stress test that showed a medium sized predominantly fixed perfusion abnormality concerning for an old AR in the RCA distribution or attenuation artifact. His LVEF on the stress test was 15% and showed severe global hypokinesis. He was started on Spironolactone and Metoprolol 25mg BID. He met criteria for sepsis and his Sputum cx collected on 02/27/2023 grew Pseudomonas aeruginosa. Urine cx and BCx were collected, and he was started on Levofloxacin, to which he is sensitive. The Ceftriaxone was d/c'ed and Augmentin were d/c'ed. 1)Neuro/Psych 2)Cardio #Hypotension - Trend Trop T. Start Midodrine 5mg TID. #Acute on chronic HFrEF: EF of 10%. #Pulmonary HTN - Cardiology following. - Give another dose of IV Lasix 3)Pulm #Sepsis due to Pseudomonas Pneumonia - F/u BCx and UCx. #Pseudomonas Aeruginosa Pneumonia - D/c'ed Ceftriaxone on 03/01. D/c'ed Azithro on AM of 03/02 before he got the 5th dosel. - Started Levofloxacin. #Acute COPD exacerbation: - On Solumedrol since 02/25. On Xopenex q4h and ipratropium q4h. - Consulted Pulm regarding his options in the setting of an EF of 10%. #Acute hypoxic/hypercapneic respiratory failure: On BiPAP. Recheck ABG in 2 hrs 4)GI #Posterior gastric ulcer #Gastritis w/ Esophagitis #Flood's Esophagus #Duodenitis - noted on 02/26/2023 EGD - PPI IV BIDAC pushes - switch to PO today, 02/28/2023 #Severe Protein Calorie Malnutrition:Spoke w/ Co Founder & Ceo who will recommend supplements #Mild proctitis #Constipation: Give Milk of Magnesia on 02/28/2023. #Transaminitis: Possibly due to congestive Hepatopathy. 5)Renal - Monitor renal fxn. - Valdez placed on 02/27/2023. Plan to remove it soon. #Contraction alkalosis. Add Acetazolamide 6)ID BCx negative. D/c'ed Azithromycin IV b/c it is in 250cc, and give him po instead. Contiue Ceftriaxone IV Heme 7)MSK - PT/OT 8)Derm: No acute issues at this time DVT ppx: Lovenox Code status discussion on 02/27/2023: Per discussion w/ his family members, his sister, and the Hospitalist and Group Reservations Coordinator, the patient is DNR, but he is DO intubate. Dispo: Transfer to the floor today Attestations Medical Necessity Statement*: Patient remains hospitalized for newly diagnosed Pseudomonas Aeruginosa. Coding Level of Care Code Acute Code for [facility] Diagnoses COPD exacerbation J44.1 Acute on chronic HFrEF (heart failure with reduced ejection fraction) I50.23 Acute gastric ulcer without hemorrhage or perforation K25.3 Gastric ulcer chronicity: acute Gastric ulcer complication status: without hemorrhage or perforation Tobacco abuse Z72.0 Transaminitis R74.01
[2023-03-01 23:07] LABS: ABG PCO2 53.7 mmHg (35-45); ABG PH Result 7.44 (7.35-7.45); Arterial Blood Gas Hematocrit 38.9 % (42-52); Base Excess ABG 10.4 mmol/L (-2.0-2.0); Blood Gas Allen Test Pos; Blood Gas Sample Site Radial, right; Blood Gas Sample Type Arterial; Carboxyhemoglobin 1.1 %THgb (0.4-20.1); HCO3 ABG 36.4 mmol/L (22-26); HGB O2 Sat 96.2 % (95-100); Ionized Calcium Level - ABG 1.2 mmol/L (1.1-1.4); Methemoglobin 0.6 % (0.4-1.5); Oxygen Device NC; Oxygen Saturation ABG 97.9; Potassium Level - ABG 4.6 mmol/L (3.5-5.0); Total Hemoglobin 12.7 g/dL (14-18)
[2023-03-01] MEDS: levofloxacin-dextrose 5 % 750 MG/150 ML PREMIX 100 MG IV (23:12)
[2023-03-01 23:25] LABS: Lactate (Lactic Acid level) 2.4 mmol/L (0.5-2.2)
[2023-03-01] MEDS: FUROsemide 10 mg/mL SDV 2mL 20 MG IVP (23:32)
[2023-03-02] VITALS (20 sets, daily range): BP systolic 108–117; BP diastolic 74–87; PULSE 94–113; RESP 16–30; TEMP 36.1–36.8; O2SAT 93–100
[2023-03-02] MEDS: ipratropium 0.5 mg/2.5 mL Neb INHALATION ×7 (00:24→23:41)
[2023-03-02] MEDS: levalbuterol 1.25 mg/3 mL Neb INHALATION ×2 (00:24→04:08)
[2023-03-02] MEDS: acetaZOLAMIDE 250 mg Tablet PO ×2 (00:35→09:44)
[2023-03-02 05:55] LABS: Basophils % 0.1 %; Hematocrit 37.1 % (37-53); Lymphocytes # 0.4 10^3/uL (0.8-4.8); Lymphocytes % 4.2 %; Mean Corpuscular HGB Conc 31.8 g/dL (30-55); Mean Corpuscular Hemoglobin 27.9 pg (27-33); Mean Corpuscular Volume 87.7 fl (82-101); Mean Platelet Volume 10.8 fL (7.4-10.4); Monocytes # 0.8 10^3/uL (0.2-0.9); Monocytes % 7.6 %; Neutrophils # 8.68 10^3/uL (1.8-7.7); Neutrophils % 87.5 %; Nucleated Red Blood Cells # 0.1 /100WBC; Nucleated Red Blood Cells % 0.6 %; Platelet Count 110 10^3/cmm (157-399); Red Blood Count 4.23 10^6/uL (3.85-5.65); Red Cell Distribution Width 15.1 % (12.1-15.1); White Blood Count 9.92 10^3/uL (3.29-11.43)
[2023-03-02 06:13] LABS: Blood Urea Nitrogen 32 mg/dL (8-23); Calcium 8.8 mg/dL (8.5-10.5); Carbon Dioxide 32 mmol/L (22-29); Chloride 95 mmol/L (98-107); Glomerular Filtration Rate 134.4 mL/min (90-130); Glucose 102 mg/dL (65-115); Osmolality Calculated 283 mOsm/kg (285-295); Sodium 133 mmol/L (136-145)
[2023-03-02 06:17] LABS: Anion Gap 10.4 (5-19); Potassium 4.4 mmol/L (3.5-5.1)
[2023-03-02] MEDS: sucralfate 1 gm/10 mL Oral Liq UDC PO ×4 (07:13→23:08)
[2023-03-02] MEDS: pantoprazole DR 40 mg Tablet PO ×2 (07:13→17:28)
--- NOTE | 2023-03-02 07:13 | P.PN_ITS ---
Subjective 2 Subjective: José says he is doing fine this morning. He does not offer any complaints. He wants to go home. I added low-dose beta-conrado yesterday. His heart rate is still running around 100 or slightly higher. He does not seem to have suffered any respiratory compromise from the beta-conrado. His blood pressure has remained stable. Vitals/I&O/Wt Last Vital Signs Temp 98.2 F 03/02/23 04:00 Pulse 103 H 03/02/23 06:00 Resp 18 03/02/23 04:08 BP 113/83 03/02/23 04:00 Pulse Ox 96 03/02/23 04:16 O2 Del Method Room Air 03/02/23 04:16 O2 Flow Rate 1 03/02/23 04:08 FiO2 30 02/27/23 23:19 03/01/23 03/02/23 03/02/23 22:59 06:59 14:59 Intake Total 480 / 1010 330 / 1340 Output Total 400 / 400 1100 / 1500 Balance 80 / 610 -770 / -160 Weight last 48 hrs Weight 113 lb 12.8 oz Weight 106 lb 7 oz Physical Exam 2 Narrative: GENERAL: In general he looks and feels well. Chronically short of breath HEENT: Exam within normal limits. NECK: Supple without jugular vein distention. The carotid upstroke is normal without bruits. BACK: Exam normal. LUNGS: Decreased breath sounds with wheezes and prolonged expiratory phase HEART: Regular rate and rhythm. ABDOMEN: Benign without organomegaly or tenderness. EXTREMITIES: No edema. NEUROLOGIC: Exam normal. SKIN: Unremarkable. Urinary Catheter Management: [place]: Cath Placed During This Visit: yes Reason for Continuing Indwelling Catheter: Accurate Measurement of Urinary Output in Critically Ill Patients Urinary Catheter Date of Insertion: 02/27/23 Urinary Catheter Time of Insertion: 14:51 Data 03/02/23 05:33 03/02/23 05:33 Micro: Microbiology 03/01/23 22:54 Blood Culture - Preliminary Blood SPECIMEN COLLECTED 03/01/23 22:52 Blood Culture - Preliminary Blood SPECIMEN COLLECTED 02/27/23 05:08 Gram Stain - Final Sputum - Expectorated Sputum Sputum Culture - Final Pseudomonas aeruginosa A&P Assessment and plan (1) Acute CHF (congestive heart failure): (2) Left ventricular dysfunction: (3) Tobacco abuse: (4) Acute on chronic HFrEF (heart failure with reduced ejection fraction): (5) Pulmonary HTN: (6) Weight loss: (7) Malnourished: (8) Gastric ulcer: Qualifiers: Gastric ulcer chronicity: acute Gastric ulcer complication status: w ithout hemorrhage or perforation Qualified Code(s): K25.3 - Acute gastric ulcer without hemorrhage or perforation (9) Transaminitis: (10) COPD (chronic obstructive pulmonary disease): Qualifiers: COPD type: unspecified COPD Qualified Code(s): J44.9 - Chronic obstructive pulmonary disease, unspecified (11) Physical deconditioning: Plan I am going to increase the beta-conrado today and add a very low-dose of an ROSELIA inhibitor. He is not a candidate for angiography or a defibrillator. Attestations 2 Medical Necessity Statement*: Hospital management for above-mentioned medical problems and Moderate Time for a total of 30 minutes, includes reviewing past or interval history, examining/interviewing patient, placing orders, counseling patient/family/other support, updating patient/family/other support, communicating with other healthcare providers and documenting encounter Diagnoses Acute CHF (congestive heart failure) I50.9 Left ventricular dysfunction I51.9 Tobacco abuse Z72.0 Acute on chronic HFrEF (heart failure with reduced ejection fraction) I50.23 Pulmonary HTN I27.20 Weight loss R63.4 Malnourished E46 Acute gastric ulcer without hemorrhage or perforation K25.3 Gastric ulcer chronicity: acute Gastric ulcer complication status: without hemorrhage or perforation Transaminitis R74.01 Chronic obstructive pulmonary disease, unspecified COPD type J44.9 COPD type: unspecified COPD Physical deconditioning R53.81
--- NOTE | 2023-03-02 08:13 | P.PN_ITS ---
Subjective 2 Subjective: The patient is awake. His O2 is off his nose, so I removed it. He states that he is feeling well. He is not SOB. He still has a clear productive cough, but states that it is better. He states that he is still wheezing, but it has improved also. He denies CP, palpitations, dizziness, headaches, fever, chills, abdominal pain, nausea, vomiting. He has not had a BM, but he is passing flatus. He still has the valdez catheter in place. I d/c'ed his fluid restriction to get a true sense of his oral intake. Medications: Reviewed: Yes Vitals/I&O/Wt Last Vital Signs Temp 98.1 F 03/02/23 07:44 Pulse 106 H 03/02/23 07:44 Resp 20 H 03/02/23 07:44 BP 117/87 03/02/23 07:44 Pulse Ox 97 03/02/23 07:44 O2 Del Method Nasal Cannula 03/02/23 07:44 O2 Flow Rate 1 03/02/23 04:08 FiO2 30 02/27/23 23:19 03/01/23 03/02/23 03/02/23 22:59 06:59 14:59 Intake Total 480 / 1010 330 / 1340 Output Total 400 / 400 1100 / 1500 Balance 80 / 610 -770 / -160 Weight last 48 hrs Weight 51.619 kg Weight 48.279 kg Physical Exam 2 Const: GENERAL APPEARANCE: cooperative, in distress, disheveled, ill appearing, frail appearing and appears older than stated age; not comfortable NUTRITIONAL APPEARANCE: cachectic O RIENTATION/CONSCIOUSNESS: Yes awake, Yes oriented to person, Yes oriented to place and Yes oriented to time HENMT: COMMON NORMALS: normocephalic, atraumatic and external ears normal H EAD & SCALP: normocephalic and atraumatic EXTERNAL EAR: Yes external ears normal MOUTH: Normal oral and palatal mucosa present THROAT: posterior oropharynx normal Eye: COMMON NORMALS: Equal, round and reactive pupils present and conjunctivae normal CONJUNCTIVA: Yes conjunctivae normal PUPIL: Yes Equal, round and reactive pupils present EOM: No EOM abnormal Neck/C-Spine: COMMON NORMALS: Thyroid normal GENERAL: Yes normal visual inspection and Yes trachea midline THYROID: Thyroid normal CAROTIDS: No bruit OTHER: Difficult to appreciate carotid bruit given his respiratory distress. Lymph: LYMPHATIC: No lymphadenopathy Resp: OTHER: diminished breath sounds in all lung gardner bilaterally and b/l expiratory wheezes in all gardner GI: OTHER: Nontender, nondistended, no guarding, no rigidity, no rebound tenderness. Bowel sounds positive. : OTHER: valdez catheter placed on 02/27/2023 Extremity: GENERAL: No clubbing, Yes cyanosis and No edema Neuro: SENSORIUM/ORIENTATION: Yes oriented to person, Yes oriented to place and Yes oriented to time CRANIAL NERVES: Yes CN normal except as noted S PEECH: speech normal MOTOR EXAM: 5/5 motor strength present throughout and Normal motor muscle tone present throughout Psych: COMMON NORMALS: Normal thought process present and speech normal A PPEARANCE: Yes unkempt and Yes disheveled ATTITUDE: Yes calm and Yes engaged ACTIVITY/MOTOR BEHAVIOR: Yes appropriate eye contact SPEECH: Yes normal speech MOOD & AFFECT: Yes sad and Yes tearful THOUGHT PROCESS: Normal thought process present THOUGHT CONTENT: Yes Normal thought content present ATTENTION/CONCENTRATION: Yes attention grossly intact Skin: COMMON NORMALS: no rashes or lesions noted GENERAL SKIN EXAM: no rashes or lesions noted Urinary Catheter Management: Valdez: Cath Placed During This Visit: yes Reason for Continuing Indwelling Catheter: Accurate Measurement of Urinary Output in Critically Ill Patients Urinary Catheter Date of Insertion: 02/27/23 Urinary Catheter Time of Insertion: 14:51 Data 03/02/23 05:33 03/02/23 05:33 Micro: Microbiology 03/01/23 22:54 Blood Culture - Preliminary Blood SPECIMEN COLLECTED 03/01/23 22:52 Blood Culture - Preliminary Blood SPECIMEN COLLECTED 02/27/23 05:08 Gram Stain - Final Sputum - Expectorated Sputum Sputum Culture - Final Pseudomonas aeruginosa A&P Assessment and plan (1) COPD exacerbation: (2) Acute on chronic HFrEF (heart failure with reduced ejection fraction): (3) Gastric ulcer: Qualifiers: Gastric ulcer chronicity: acute Gastric ulcer complication status: w ithout hemorrhage or perforation Qualified Code(s): K25.3 - Acute gastric ulcer without hemorrhage or perforation (4) Tobacco abuse: (5) Transaminitis: Plan Mr Collier is a 67yo man w/COPD and CHF, who presented to the ED on 02/25/2023 not on O2, for worsening dyspnea. Prior to this admission, he initially presented to his PCP's office w/ complaints of diarrhea, and episode of emesis, a cough and dyspnea. He was diagnosed with COPD exacerbation and viral gastroenteritis, and given 1 g of Rocephin Decadron 10 mg IM, & promethazine. He then presented on 02/16/2023, to [facility]'s ED, with complaints of 3 days of worsening dyspnea. He was diagnosed with COPD exacerbation. His CXR on 02/16/2023 showed cardiomegaly with trace L. Pleural effusion as well as areas of bilateral mid to lower lung atelectasis. It also showed COPD and a few lung opacities concerning for mild lymphadenopathy. He was discharged with 60 mg p.o. daily of prednisone and 7 days of doxycycline p.o. twice daily. He then presented for the second time to [facility]'s ED on 02/25/2023, with complaints of increased dyspnea and productive cough of bloody sputum as well as vomiting. His CXR on 02/25 was unchanged from 02/16. He was admitted for hemoptysis. On admission, a CTA chest abdomen and pelvis were ordered that showed an inflammed gastric ulcer in the posterior distal body of the stomach, mild fatty infiltration of the liver, and diffuse moderate gallbladder thickening, concerning for cystitis. The general surgeon, Dr. Leal was consulted. A TTE was also ordered, given that his BNP was highly elevated, but he did not look fluid overloaded. His TTE, done on 02/25/2023, showed an EF of 10% with global LV hypokinesis, moderately severe MV regurg, mild to moderate tricuspid valve regurg, and moderate pulmonary HTN with an RVSP of 50.2 mmHg. Based on these new revelations, the coating mixer tender was also consulted. 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 Biopsies were obtained from the antrum, the lower third of the esophagus, the gastric cardia, antrum, and second part of the duodenum. Post EGD on 02/26/2023, he quickly complained of being dyspneic. He became tachycardic and hypotensive. Given that he just had an EGD, there was concern for bowel perforation, so a stat CT abdomen pelvis was repeated, a CXR was also ordered. He was started on a PPI drip. He was given a duoneb treatment w/ Xopenex. An ABG was ordered that was 7 point 4/44/58.8 on room air, so he was placed on 2L NC. His lactic acid was 4.1, and an LDH and Trop T series were ordered. An EKG was done that showed ST depressions in V5 and V6. He was also started on midodrine for his hypotension. He clinically improved w/ breathing treatments. His CT abd/pelvis was negative for bowel perforation. On 02/27/2023, he had another episode of dyspnea, where he went into a tripod position. The patient was given Lasix IVP and placed on BiPAP. Pulmonology was consulted and family was called. The patient was made DNR, but ok to intubate by his sister. On 02/28/2023, he underwent a stress test that showed a medium sized predominantly fixed perfusion abnormality concerning for an old MS in the RCA distribution or attenuation artifact. His LVEF on the stress test was 15% and showed severe global hypokinesis. He was started on Spironolactone and Metoprolol 25mg BID. He met criteria for sepsis and his Sputum cx collected on 02/27/2023 grew Pseudomonas aeruginosa. Urine cx and BCx were collected, and he was started on Levofloxacin, to which he is sensitive. The Ceftriaxone was d/c'ed and Augmentin were d/c'ed. 1)Neuro/Psych 2)Cardio #Hypotension: Improved. #Acute on chronic HFrEF: EF of 10%. On Metoprolol 25mg BID, Spironolactone 25mg daily. Started po Lasix 40mg daily. Acetazolamide added temporarily. Lisinopril ordered to start 03/03/2023. #Pulmonary HTN - Cardiology following. 3)Pulm #Sepsis due to Pseudomonas Pneumonia - F/u BCx and UCx. #Pseudomonas Aeruginosa Pneumonia - D/c'ed Ceftriaxone on 03/01. D/c'ed Azithro on AM of 03/02 before he got the 5th dosel. - Started Levofloxacin on 03/01/2023. #Acute COPD exacerbation: - On Solumedrol since 02/25. On Xopenex q4h and ipratropium q4h. - Consulted Pulm regarding his options in the setting of an EF of 10%. #Acute hypoxic/hypercapneic respiratory failure: On BiPAP. Recheck ABG in 2 hrs 4)GI #Posterior gastric ulcer #Gastritis w/ Esophagitis #Flood's Esophagus #Duodenitis - noted on 02/26/2023 EGD - PPI IV BIDAC pushes - switch to PO today, 02/28/2023 #Severe Protein Calorie Malnutrition:Spoke w/ Laminator Preforms who will recommend supplements #Mild proctitis #Constipation: Give Milk of Magnesia on 03/02/2023. #Transaminitis: Possibly due to congestive Hepatopathy. Monitor liver enzymes. 5)Renal - Monitor renal fxn. - Valdez placed on 02/27/2023. In place for hemodynamic monitoring including strict Is & Os. Plan to remove it soon. #Contraction alkalosis. Add Acetazolamide 6)ID BCx negative. D/c'ed Azithromycin IV b/c it is in 250cc, and give him po instead. Continue Ceftriaxone IV Heme 7)MSK - PT/OT 8)Derm: No acute issues at this time DVT ppx: Lovenox Code status discussion on 02/27/2023: Per discussion w/ his family members, his sister, and the Hospitalist and Raiser Helper, the patient is DNR, but he is DO intubate. Dispo: Transfer to the floor today Attestations 2 Medical Necessity Statement*: The patient remains hospitalized for Sepsis due to Pseudomonas Aeruginosa, COPD exacerbation. Blood cultures and Urine culture is pending. Coding Level of Care Code Acute Code for [facility] Diagnoses COPD exacerbation J44.1 Acute on chronic HFrEF (heart failure with reduced ejection fraction) I50.23 Acute gastric ulcer without hemorrhage or perforation K25.3 Gastric ulcer chronicity: acute Gastric ulcer complication status: without hemorrhage or perforation Tobacco abuse Z72.0 Transaminitis R74.01
[2023-03-02] MEDS: budesonide 0.5 mg/2 mL Neb INHALATION ×2 (08:55→20:57)
--- NOTE | 2023-03-02 09:17 | PC.SOCIAL ---
IMM Update pg 2 of IMM updated and reviewed w/ patient. Copy provided and copy dated, initialed and placed in chart.
[2023-03-02] MEDS: nicotine 7 mg Patch 1 PATCH TRANSDERMA (09:42)
[2023-03-02] MEDS: metoprolol tartrate 25 mg Tablet PO ×2 (09:44→17:28)
[2023-03-02] MEDS: methylPREDNISolone sod succ 40 mg/mL INJ IVP (09:45)
[2023-03-02] MEDS: FUROsemide 40 mg Tablet PO (09:45)
[2023-03-02] MEDS: spironolactone 25 mg Tablet PO (09:45)
[2023-03-02] MEDS: azithromycin 250 mg Tablet 500 MG PO (09:45)
--- NOTE | 2023-03-02 10:27 | XR_ITS ---
WS: [id number] Exam: XR chest 1V portable [id number] Date/Time of Exam: 03/02/2023 10:27 AM Reason For Exam: wheezes Comparison 02/26/2023. Cardiac enlargement noted with diffuse interstitial infiltrates that may represent some degree of int erstitial pulmonary edema. Similar pattern on the last study. No pleural effusions. No consolidated i nfiltrates are seen. The mediastinum and osseous thorax are unremarkable. IMPRESSION: 1. Cardiac enlargement with diffuse interstitial prominence similar to prior study. Mild cardiac deco mpensation with interstitial pulmonary edema is suggested. 2. There appears to be a PICC line in place ending over the region of the RIGHT scapula. This may be in the subclavian vein.
[2023-03-02 10:47] LABS: Alanine Aminotransferase 421 U/L (0-41); Aspartate Amino Transferase 76 U/L (0-40); Gamma Glutamyl Transferase 374 U/L (8-61)
[2023-03-02 10:49] LABS: Lactate Dehydrogenase 425 U/L (135-225)
[2023-03-02 11:16] LABS: NT Pro B Type Natriuretic Pept 11776 pg/mL (0-125)
[2023-03-02] MEDS: magnesium hydroxide 30 mL UDC PO (11:27)
[2023-03-02] MEDS: atorvastatin 40 mg Tablet PO (20:11)
[2023-03-03] VITALS (18 sets, daily range): BP systolic 101–115; BP diastolic 73–78; PULSE 89–108; RESP 16–24; TEMP 36.4–36.7; O2SAT 94–98
[2023-03-03] MEDS: levalbuterol 1.25 mg/3 mL Neb INHALATION ×3 (02:22→12:05)
[2023-03-03] MEDS: ipratropium 0.5 mg/2.5 mL Neb INHALATION ×5 (04:29→20:32)
[2023-03-03 05:47] LABS: Basophils % 0.1 %; Eosinophils % 0.1 %; Hematocrit 41.2 % (37-53); Lymphocytes # 0.7 10^3/uL (0.8-4.8); Lymphocytes % 6.9 %; Mean Corpuscular HGB Conc 32.5 g/dL (30-55); Mean Corpuscular Hemoglobin 27.6 pg (27-33); Mean Corpuscular Volume 84.8 fl (82-101); Monocytes # 0.7 10^3/uL (0.2-0.9); Monocytes % 7.5 %; Neutrophils # 8.33 10^3/uL (1.8-7.7); Neutrophils % 84.8 %; Nucleated Red Blood Cells # 0.1 /100WBC; Nucleated Red Blood Cells % 0.6 %; Platelet Count 108 10^3/cmm (157-399); Red Blood Count 4.86 10^6/uL (3.85-5.65); Red Cell Distribution Width 14.9 % (12.1-15.1); White Blood Count 9.83 10^3/uL (3.29-11.43)
[2023-03-03 06:07] LABS: Anion Gap 12.5 (5-19); Blood Urea Nitrogen 26 mg/dL (8-23); Calcium 8.8 mg/dL (8.5-10.5); Carbon Dioxide 29 mmol/L (22-29); Chloride 93 mmol/L (98-107); Glomerular Filtration Rate 134.4 mL/min (90-130); Glucose 129 mg/dL (65-115); Magnesium 2.2 mg/dL (1.7-2.3); Osmolality Calculated 276 mOsm/kg (285-295); Phosphorus 3.6 mg/dL (2.5-4.5); Potassium 4.5 mmol/L (3.5-5.1); Sodium 130 mmol/L (136-145)
[2023-03-03 06:13] LABS: Alanine Aminotransferase 382 U/L (0-41); Aspartate Amino Transferase 57 U/L (0-40); Gamma Glutamyl Transferase 381 U/L (8-61); Lactate Dehydrogenase 424 U/L (135-225); NT Pro B Type Natriuretic Pept 10540 pg/mL (0-125)
[2023-03-03] MEDS: sucralfate 1 gm/10 mL Oral Liq UDC PO ×3 (06:24→22:56)
[2023-03-03] MEDS: pantoprazole DR 40 mg Tablet PO ×2 (06:24→20:52)
--- NOTE | 2023-03-03 08:39 | PM.PN ---
Subjective Subjective: The [employer] Brim Ironer - communications representative for Dr. Oscar, noticed the patient was in Vtach, and recommended initiating Amiodarone 400mg po BID. When I spoke to him about the life vest, he stated that he would like one. He stated, I want to live. The patient was comfortably reclining in the chair. As usual he loves the recliner chair. He denies any shortness of breath, CP, palpitations, dizziness, lightheadedness, abdominal pain, nausea, vomiting. Medications: Reviewed: Yes Vitals/I&O/Wt Last Vital Signs Temp 98.0 F 03/03/23 07:28 Pulse 104 H 03/03/23 07:28 Resp 19 H 03/03/23 07:28 BP 113/76 03/03/23 07:28 Pulse Ox 95 03/03/23 07:28 O2 Del Method Nasal Cannula 03/03/23 07:28 O2 Flow Rate 1 03/03/23 04:29 FiO2 30 03/03/23 02:21 03/02/23 03/03/23 03/03/23 22:59 06:59 14:59 Intake Total 550 / 550 Output Total 300 / 300 200 / 500 Balance 250 / 250 -200 / 50 Weight last 48 hrs Weight 51.12 kg Weight 51.619 kg Physical Exam Const: GENERAL APPEARANCE: cooperative, in distress, disheveled, ill appearing, frail appearing and appears older than stated age; not comfortable NUTRITIONAL APPEARANCE: cachectic ORIENTATION/CONSCIOUSNESS: Yes awake, Yes oriented to person, Yes oriented to place and Yes oriented to time HENMT: COMMON NORMALS: normocephalic, atraumatic and external ears normal HEAD & SCALP: normocephalic and atraumatic EXTERNAL EAR: Yes external ears normal MOUTH: Normal oral and palatal mucosa present THROAT: posterior oropharynx normal Eye: COMMON NORMALS: Equal, round and reactive pupils present and conjunctivae normal CONJUNCTIVA: Yes conjunctivae normal PUPIL: Yes Equal, round and reactive pupils present EOM: No EOM abnormal Neck/C-Spine: COMMON NORMALS: Thyroid normal GENERAL: Yes normal visual inspection and Yes trachea midline THYROID: Thyroid normal CAROTIDS: No bruit OTHER: Difficult to appreciate carotid bruit given his respiratory distress. Lymph: LYMPHATIC: No lymphadenopathy Resp: OTHER: diminished breath sounds in all lung gardner bilaterally and b/l expiratory wheezes in all gardner GI: OTHER: Nontender, nondistended, no guarding, no rigidity, no rebound tenderness. Bowel sounds positive. : OTHER: valdez catheter placed on 02/27/2023 Extremity: GENERAL: No clubbing, Yes cyanosis and No edema Neuro: SENSORIUM/ORIENTATION: Yes oriented to person, Yes oriented to place and Yes oriented to time CRANIAL NERVES: Yes CN normal except as noted SPEECH: speech normal MOTOR EXAM: 5/5 motor strength present throughout and Normal motor muscle tone present throughout Psych: COMMON NORMALS: Normal thought process present and speech normal APPEARANCE: Yes unkempt and Yes disheveled ATTITUDE: Yes calm and Yes engaged ACTIVITY/MOTOR BEHAVIOR: Yes appropriate eye contact SPEECH: Yes normal speech MOOD & AFFECT: Yes sad and Yes tearful THOUGHT PROCESS: Normal thought process present THOUGHT CONTENT: Yes Normal thought content present ATTENTION/CONCENTRATION: Yes attention grossly intact Skin: COMMON NORMALS: no rashes or lesions noted GENERAL SKIN EXAM: no rashes or lesions noted Urinary Catheter Management: Valdez: Cath Placed During This Visit: yes Reason for Continuing Indwelling Catheter: Accurate Measurement of Urinary Output in Critically Ill Patients Urinary Catheter Date of Insertion: 02/27/23 Urinary Catheter Time of Insertion: 14:51 Data 03/04/23 04:42 03/04/23 04:42 Micro: Microbiology 03/01/23 22:54 Blood Culture - Preliminary Blood NEGATIVE TO DATE 03/01/23 22:52 Blood Culture - Preliminary Blood NEGATIVE TO DATE 02/25/23 15:42 Blood Culture - Final Blood NO GROWTH AFTER 5 DAYS 02/25/23 15:38 Blood Culture - Final Blood NO GROWTH AFTER 5 DAYS A&P Assessment and plan (1) COPD exacerbation: (2) Acute on chronic HFrEF (heart failure with reduced ejection fraction): (3) Gastric ulcer: Qualifiers: Gastric ulcer chronicity: acute Gastric ulcer complication status: without hemorrhage or perforation Qualified Code(s): K25.3 - Acute gastric ulcer without hemorrhage or perforation (4) Tobacco abuse: (5) Transaminitis: Plan Mr Collier is a 67yo man w/COPD and CHF, who presented to the ED on 02/25/2023 not on O2, for worsening dyspnea. Prior to this admission, he initially presented to his PCP's office w/ complaints of diarrhea, and episode of emesis, a cough and dyspnea. He was diagnosed with COPD exacerbation and viral gastroenteritis, and given 1 g of Rocephin Decadron 10 mg IM, & promethazine. He then presented on 02/16/2023, to [facility]'s ED, with complaints of 3 days of worsening dyspnea. He was diagnosed with COPD exacerbation. His CXR on 02/16/2023 showed cardiomegaly with trace L. Pleural effusion as well as areas of bilateral mid to lower lung atelectasis. It also showed COPD and a few lung opacities concerning for mild lymphadenopathy. He was discharged with 60 mg p.o. daily of prednisone and 7 days of doxycycline p.o. twice daily. He then presented for the second time to [facility]'s ED on 02/25/2023, with complaints of increased dyspnea and productive cough of bloody sputum as well as vomiting. His CXR on 02/25 was unchanged from 02/16. He was admitted for hemoptysis. On admission, a CTA chest abdomen and pelvis were ordered that showed an inflammed gastric ulcer in the posterior distal body of the stomach, mild fatty infiltration of the liver, and diffuse moderate gallbladder thickening, concerning for cystitis. The general surgeon, Dr. Leal was consulted. A TTE was also ordered, given that his BNP was highly elevated, but he did not look fluid overloaded. His TTE, done on 02/25/2023, showed an EF of 10% with global LV hypokinesis, moderately severe MV regurg, mild to moderate tricuspid valve regurg, and moderate pulmonary HTN with an RVSP of 50.2 mmHg. Based on these new revelations, the tire stripper was also consulted. 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 Biopsies were obtained from the antrum, the lower third of the esophagus, the gastric cardia, antrum, and second part of the duodenum. Post EGD on 02/26/2023, he quickly complained of being dyspneic. He became tachycardic and hypotensive. Given that he just had an EGD, there was concern for bowel perforation, so a stat CT abdomen pelvis was repeated, a CXR was also ordered. He was started on a PPI drip. He was given a duoneb treatment w/ Xopenex. An ABG was ordered that was 7 point 4/44/58.8 on room air, so he was placed on 2L NC. His lactic acid was 4.1, and an LDH and Trop T series were ordered. An EKG was done that showed ST depressions in V5 and V6. He was also started on midodrine for his hypotension. He clinically improved w/ breathing treatments. His CT abd/pelvis was negative for bowel perforation. On 02/27/2023, he had another episode of dyspnea, where he went into a tripod position. The patient was given Lasix IVP and placed on BiPAP. Pulmonology was consulted and family was called. The patient was made DNR, but ok to intubate by his sister. On 02/28/2023, he underwent a stress test that showed a medium sized predominantly fixed perfusion abnormality concerning for an old NM in the RCA distribution or attenuation artifact. His LVEF on the stress test was 15% and showed severe global hypokinesis. He was started on Spironolactone and Metoprolol 25mg BID. He met criteria for sepsis and his Sputum cx collected on 02/27/2023 grew Pseudomonas aeruginosa. Urine cx and BCx were collected, and he was started on Levofloxacin, to which he is sensitive. The Ceftriaxone was d/c'ed and Augmentin were d/c'ed. Lisinopril 2.5mg po BID and Furosemide 40mg po daily was added to his regimen on 03/03/2023. On 03/04/2023, he went into fast Vtach but was asymptomatic, so he was started on 400mg po BID. Per discussion w/ Dr. Hansen, I spoke with him about a life vest, and the patient stated that he is interested in 1, because he would like to live. Pulmonology signed off today 03/04/2023, and would like the patient discharged on [facility] [employer]. 1)Neuro/Psych 2)Cardio #Hypotension: Improved. #Acute on chronic HFrEF: EF of 10%. On Metoprolol 25mg BID, Spironolactone 25mg daily. Started po Lasix 40mg daily. Acetazolamide added temporarily & d/c'ed on 03/04. Lisinopril ordered to start 03/03/2023. #Pulmonary HTN - Cardiology following. # Fast Vtach: Noted on 03/04/2023 by Cardiology. Started on Amiodarone 400mg BID. Patient open to a Life vest. 3)Pulm #Sepsis due to Pseudomonas Pneumonia - BCx neg x1 day. UCx negative. #Pseudomonas Aeruginosa Pneumonia - D/c'ed Ceftriaxone on 03/01. D/c'ed Azithro on AM of 03/02 before he got the 5th dosel. - Started Levofloxacin on 03/01/2023. #Acute COPD exacerbation: - On Solumedrol since 02/25. On Xopenex q4h and ipratropium q4h. - Consulted Pulm regarding his options in the setting of an EF of 10%. - Taper down to Prednisone 30mg starting on 03/05 - Pulmonology signed off today 03/04/2023, and would like the patient discharged on Trelegy & Breztri. #Acute hypoxic/hypercapneic respiratory failure: On BiPAP. Recheck ABG in 2 hrs 4)GI #Posterior gastric ulcer #Gastritis w/ Esophagitis #Flood's Esophagus #Duodenitis - noted on 02/26/2023 EGD - s/p PPI IV BIDAC pushes. On po PPI BID since 02/28/2023 #Severe Protein Calorie Malnutrition:Spoke w/ Placement Secretary who will recommend supplements #Mild proctitis #Constipation: Give Milk of Magnesia on 03/02/2023. #Transaminitis: Possibly due to congestive Hepatopathy. Monitor liver enzymes. 5)Renal - Monitor renal fxn. - Valdez placed on 02/27/2023. In place for hemodynamic monitoring including strict Is & Os. Discontinued on 03/04/2023. #Contraction alkalosis. Add Acetazolamide #Hyponatremia: likely hypervolemic. Continue diuresis. 6)ID BCx negative. D/c'ed Azithromycin IV b/c it is in 250cc, and give him po instead. Continue Ceftriaxone IV Heme 7)MSK - PT/OT 8)Derm: No acute issues at this time DVT ppx: Lovenox Code status discussion on 02/27/2023: Per discussion w/ his family members, his sister, and the Hospitalist and Paving Inspector, the patient is DNR, but he is DO intubate. His CODE STATUS needs to be revisited, since he stated today,03/04/2023, that he would like to live. Dispo: Transfer to the floor today Attestations Medical Necessity Statement*: Patient remains hospitalized for Coding Level of Care Code 20903 Diagnoses COPD exacerbation J44.1 Acute on chronic HFrEF (heart failure with reduced ejection fraction) I50.23 Acute gastric ulcer without hemorrhage or perforation K25.3 Gastric ulcer chronicity: acute Gastric ulcer complication status: without hemorrhage or perforation Tobacco abuse Z72.0 Transaminitis R74.01
[2023-03-03] MEDS: metoprolol tartrate 25 mg Tablet PO ×2 (09:53→20:52)
[2023-03-03] MEDS: acetaZOLAMIDE 250 mg Tablet PO (09:53)
[2023-03-03] MEDS: FUROsemide 40 mg Tablet PO (09:53)
[2023-03-03] MEDS: nicotine 7 mg Patch 1 PATCH TRANSDERMA (09:53)
[2023-03-03] MEDS: lisinopril 2.5 mg Tablet PO (09:53)
[2023-03-03] MEDS: spironolactone 25 mg Tablet PO (09:53)
[2023-03-03] MEDS: methylPREDNISolone sod succ 40 mg/mL INJ IVP (09:54)
[2023-03-03] MEDS: budesonide 0.5 mg/2 mL Neb INHALATION ×2 (10:21→20:32)
--- NOTE | 2023-03-03 12:47 | P.PN_ITS ---
Subjective 2 Subjective: Cardiology coverage Patient with severe LV systolic dysfunction, congestive heart failure, COPD exacerbation Patient is feeling better. He still looks like he is severely emaciated. Denies any chest pain, palpitation, shortness of breath or any new symptoms. Medications: Medication Review Details: Current Medications Acetaminophen (Acetaminophen 500 Mg Tablet) 500 mg PO Q4H PRN PRN Reason: fever Last Admin: 02/25/23 09:28 Dose: 500 mg Acetazolamide (Acetazolamide 250 Mg Tablet) 250 mg PO DAILY CIRILO Last Admin: 03/03/23 09:53 Dose: 250 mg Atorvastatin Calcium (Atorvastatin 40 Mg Tablet) 40 mg PO BEDTIME CIRILO Last Admin: 03/02/23 20:11 Dose: 40 mg Benzonatate (Benzonatate 100 Mg Capsule) 100 mg PO TID PRN PRN Reason: COUGH Last Admin: 02/25/23 10:36 Dose: 100 mg Budesonide (Budesonide 0.5 Mg/2 Ml Neb) 0.5 mg INHALATION BID.RESPIRATORY CIRILO Last Admin: 03/03/23 10:21 Dose: 0.5 mg Furosemide (Furosemide 40 Mg Tablet) 40 mg PO DAILY@0800 CIRILO Last Admin: 03/03/23 09:53 Dose: 40 mg Ipratropium Rapelje (Ipratropium 0.5 Mg/2.5 Ml Neb) 0.5 mg INHALATION Q4H.RESPIRATORY CIRILO Last Admin: 03/03/23 12:05 Dose: 0.5 mg Lanolin (Lanolin Oint 7 Gm) 1 applic TOPICAL PRN PRN PRN Reason: DRYNESS Levalbuterol HCl (Levalbuterol 1.25 Mg/3 Ml Neb) 1.25 mg INHALATION Q4H.RESPIRATORY PRN PRN Reason: SHORTNESS OF BREATH Last Admin: 03/03/23 12:05 Dose: 1.25 mg Lidocaine HCl (Lidocaine 2% Viscous 15 Ml Udc) 1 ml TOPICAL PRN PRN PRN Reason: Anesthetic prior to IV start Lisinopril (Lisinopril 2.5 Mg Tablet) 2.5 mg PO DAILY CIRILO Last Admin: 03/03/23 09:53 Dose: 2.5 mg Lorazepam (Lorazepam 2 Mg/Ml Inj 1 Ml) 0.5 mg IVP Q4H PRN PRN Reason: ANXIETY Last Admin: 03/01/23 17:35 Dose: 0.5 mg Magnesium Hydroxide (Magnesium Hydroxide 30 Ml Udc) 30 ml PO DAILY PRN PRN Reason: CONSTIPATION Last Admin: 03/02/23 11:27 Dose: 30 ml Methylprednisolone Sodium Succinate (Methylprednisolone Sod Succ 40 Mg/Ml Inj) 40 mg IVP DAILY [facility] Last Admin: 03/03/23 09:54 Dose: 40 mg Metoprolol Tartrate (Metoprolol Tartrate 25 Mg Tablet) 25 mg PO BID [facility] Last Admin: 03/03/23 09:53 Dose: 25 mg Nicotine (Nicotine 7 Mg Patch) 1 patch TRANSDERMA DAILY [facility] Last Admin: 03/03/23 09:53 Dose: 1 patch Ondansetron HCl (Ondansetron 2 Mg/Ml Sdv 2 Ml) 8 mg IVP Q6H PRN PRN Reason: NAUSEA AND VOMITING Ondansetron HCl (Ondansetron 2 Mg/Ml Sdv 2 Ml) 4 mg IVP Q15M PRN PRN Reason: Nausea/Vomiting PACU PHASE II Pantoprazole Sodium (Pantoprazole Dr 40 Mg Tablet) 40 mg PO BIDAC [facility] Last Admin: 03/03/23 06:24 Dose: 40 mg Promethazine HCl (Promethazine 25 Mg/Ml Sdv 1 Ml) 25 mg IM Q6H PRN PRN Reason: NAUSEA Spironolactone (Spironolactone 25 Mg Tablet) 25 mg PO DAILY [facility] Last Admin: 03/03/23 09:53 Dose: 25 mg Sucralfate (Sucralfate 1 Gm/10 Ml Oral Liq Udc) 1 gm PO Q6H [facility] Last Admin: 03/03/23 06:24 Dose: 1 gm Vitals/I&O/Wt Last Vital Signs Temp 98.1 F 03/03/23 11:40 Pulse 103 H 03/03/23 12:00 Resp 18 03/03/23 12:00 BP 108/73 03/03/23 11:40 Pulse Ox 97 03/03/23 12:00 O2 Del Method Nasal Cannula 03/03/23 12:00 O2 Flow Rate 1 03/03/23 12:00 FiO2 30 03/03/23 02:21 03/02/23 03/03/23 03/03/23 22:59 06:59 14:59 Intake Total 550 / 550 240 / 240 Output Total 300 / 300 200 / 500 130 / 130 Balance 250 / 250 -200 / 50 110 / 110 Weight last 48 hrs Weight 112 lb 11.2 oz Weight 113 lb 12.8 oz Physical Exam 2 Narrative: GENERAL: The patient is alert and oriented times three. Not in any acute distress. Severely emaciated HEENT: No significant pallor, icterus or lymphadenopathy.Oral cavity: There are no mucous membrane lesions. NECK: Trachea appears to be central. No masses noted. No JVD or thyromegaly appreciated. RESPIRATORY: Chest is symmetrical. No intercostals muscle retraction or any accessory muscle activation. There is no chest wall tenderness. Breath sounds are heard bilaterally. No rales or rhonchi heard. No evidence of any consolidation. BREASTS: Deferred. HEART: The heart sounds are normal. No S3 or S4 for systolic murmur in the lower sternal border. No diastolic murmurs.. No pericardial rub ABDOMEN: No vessel pulsations or distention. No tenderness. No organomegaly appreciated. Bowel sounds are normally heard. : Deferred. RECTAL: Deferred. LYMPHATIC: No lymphadenopathy noted in the neck. EXTREMITIES: No edema or cyanosis. No clubbing. MUSCULOSKELETAL: No acute joint deformities or swelling SKIN: There are no significant rashes or ecchymosis NEUROPSYCHIATRIC: The patient is alert and oriented x3. Appears to be in a good mood. No tremors or rigidity noted. Urinary Catheter Management: [place]: Cath Placed During This Visit: yes Reason for Continuing Indwelling Catheter: Accurate Measurement of Urinary Output in Critically Ill Patients Urinary Catheter Date of Insertion: 02/27/23 Urinary Catheter Time of Insertion: 14:51 Data 03/03/23 05:14 03/03/23 05:14 Other Labs: Laboratory Last Values WBC 9.83 10^3/uL (3.29-11.43) 03/03/23 05:14 Corrected WBC Cancelled 02/27/23 16:00 RBC 4.86 10^6/uL (3.85-5.65) 03/03/23 05:14 Hgb 13.40 g/dL (11.27-16.99) 03/03/23 05:14 Hct 41.2 % (37-53) 03/03/23 05:14 MCV 84.8 fl (82-101) 03/03/23 05:14 MCH 27.6 pg (27-33) 03/03/23 05:14 MCHC 32.5 g/dL (30-55) 03/03/23 05:14 RDW 14.9 % (12.1-15.1) 03/03/23 05:14 Plt Count 108 10^3/cmm (157-399) L 03/03/23 05:14 MPV 10.0 fL (7.4-10.4) 03/03/23 05:14 Gran % Cancelled 02/27/23 16:00 Neut % (Auto) 84.8 % 03/03/23 05:14 Lymph % (Auto) 6.9 % 03/03/23 05:14 Lea % (Auto) 7.5 % 03/03/23 05:14 Eos % (Auto) 0.1 % 03/03/23 05:14 Baso % (Auto) 0.1 % 03/03/23 05:14 Neut # (Auto) 8.33 10^3/uL (1.8-7.7) H 03/03/23 05:14 Lymph # (Auto) 0.7 10^3/uL (0.8-4.8) L 03/03/23 05:14 Lea # (Auto) 0.7 10^3/uL (0.2-0.9) 03/03/23 05:14 Eos # (Auto) 0.0 10^3/uL (0.0-0.8) 03/03/23 05:14 Baso # (Auto) 0.0 10^3/uL (0.0-0.1) 03/03/23 05:14 Absolute Gran (auto) Cancelled 02/27/23 16:00 Nucleated RBC % (auto) 0.6 % 03/03/23 05:14 Nucleated RBCs # 0.1 /100WBC 03/03/23 05:14 ESR 1 mm/hr (0-10) 02/25/23 09:34 PT 17.60 SECONDS (12.1-14.9) H 02/25/23 17:45 INR 1.39 (0.8-1.2) H 02/25/23 17:45 D-Dimer 6.28 ug/mLFEU (0-0.59) H 02/25/23 05:19 Specimen Type Arterial 03/01/23 22:57 Sample Site Radial, right 03/01/23 22:57 ABG pH 7.44 (7.35-7.45) 03/01/23 22:57 ABG pCO2 53.7 mmHg (35-45) H 03/01/23 22:57 ABG pO2 102.0 mmHg (80.0-100.0) H 03/01/23 22:57 ABG PO2/FiO2 Ratio 0 02/27/23 14:31 ABG HCO3 36.4 mmol/L (22-26) H 03/01/23 22:57 ABG O2 Saturation 97.9 03/01/23 22:57 ABG Base Excess 10.4 mmol/L (-2.0-2.0) H 03/01/23 22:57 Abelino Test Pos 03/01/23 22:57 A-a O2 Gradient Not Reportable 03/01/23 22:57 Hematocrit 38.9 % (42-52) L 03/01/23 22:57 Hgb O2 Saturation 96.2 % (95-100) 03/01/23 22:57 Carboxyhemoglobin 1.1 %THgb (0.4-20.1) 03/01/23 22:57 Methemoglobin 0.6 % (0.4-1.5) 03/01/23 22:57 Total Hemoglobin 12.7 g/dL (14-18) L 03/01/23 22:57 Sodium 134.0 mmol/L (131-143) 03/01/23 22:57 Potassium 4.6 mmol/L (3.5-5.0) 03/01/23 22:57 Glucose 160.0 mg/dL (70-115) H 03/01/23 22:57 Ionized Calcium 1.2 mmol/L (1.1-1.4) 03/01/23 22:57 O2 Delivery Device Nc 03/01/23 22:57 O2 Liters/Min 2.0 % 03/01/23 22:57 FiO2 50.0 % 02/27/23 14:31 Lance Crewmember/[employer] [email or web address] 03/01/23 22:57 Sodium 130 mmol/L (136-145) L 03/03/23 05:14 Potassium 4.5 mmol/L (3.5-5.1) 03/03/23 05:14 Chloride 93 mmol/L (98-107) L 03/03/23 05:14 Carbon Dioxide 29 mmol/L (22-29) 03/03/23 05:14 Anion Gap 12.5 (5-19) 03/03/23 05:14 BUN 26 mg/dL (8-23) H 03/03/23 05:14 Creatinine 0.6 mg/dL (0.7-1.2) L 03/03/23 05:14 GFR Calculation 134.4 mL/min (90-130) H 03/03/23 05:14 Glucose 129 mg/dL (65-115) H 03/03/23 05:14 Estimat Average Glucose 134 02/25/23 09:34 Hemoglobin A1c 6.3 % (4.0-6.0) H 02/25/23 09:34 Calculated Osmolality 276 mOsm/kg (285-295) L 03/03/23 05:14 Lactate 2.4 mmol/L (0.5-2.2) H 03/01/23 22:52 Calcium 8.8 mg/dL (8.5-10.5) 03/03/23 05:14 Phosphorus 3.6 mg/dL (2.5-4.5) 03/03/23 05:14 Magnesium 2.2 mg/dL (1.7-2.3) 03/03/23 05:14 Total Bilirubin 1.8 mg/dL (0.15-1.2) H 02/27/23 21:04 Direct Bilirubin 0.90 mg/dL (0.00-0.30) H 02/27/23 21:04 GGT 381 U/L (8-61) H 03/03/23 05:14 AST 57 U/L (0-40) H 03/03/23 05:14 ALT 382 U/L (0-41) H 03/03/23 05:14 Alkaline Phosphatase 292 U/L (40-130) H 02/27/23 21:04 Ammonia 46 umol/L (16-60) 02/28/23 03:25 Lactate Dehydrogenase 424 U/L (135-225) H 03/03/23 05:14 Troponin T Baseline 34 ng/L (0-15) H 02/26/23 18:20 Troponin T 120 Minute 26.07 ng/L (0-15) H 02/26/23 21:04 Delta Troponin T -7.93 ABS# (0-10) L 02/26/23 21:04 Troponin T Hi Sens 6Hr 25.98 ng/L (0-15) H 02/27/23 02:02 Troponin T Hi Sens 6Hr Delta -8.02 ng/L (0-12) L 02/27/23 02:02 C-Reactive Protein 21.0 mg/L (0.0-4.9) H 02/26/23 03:05 NT-Pro-B Natriuret Pep 35010 pg/mL (0-125) H 03/03/23 05:14 Total Protein 6.1 g/dL (6.6-8.7) L 02/27/23 21:04 Albumin 3.7 g/dL (3.5-5.2) 02/27/23 21:04 Globulin 2.4 g/dL (1.3-4.6) 02/27/23 21:04 Lipase 15 U/L (13-60) 02/25/23 09:34 Vitamin B12 > 2000 pg/mL (232-1245) H 02/25/23 02:22 Procalcitonin 0.13 ng/mL (0-0.5) 02/25/23 08:10 TSH 2.61 uIU/mL (0.27-4.20) 02/25/23 09:34 Urine Color Dark yellow (Yellow) 02/27/23 03:30 Urine Appearance Sl hazy (CLEAR) A 02/27/23 03:30 Urine pH 5 (5-7) 02/27/23 03:30 Ur Specific [place] 1.020 (1.005-1.030) 02/27/23 03:30 Urine Protein 1+ (Negative) H 02/27/23 03:30 Urine Glucose (UA) Norm (Normal) 02/27/23 03:30 Urine Ketones Negative (Negative) 02/27/23 03:30 Urine Blood 2+ (Negative) H 02/27/23 03:30 Urine Nitrate Negative (Negative) 02/27/23 03:30 Urine Bilirubin Neg (Negative) 02/27/23 03:30 Urine Urobilinogen Neg mg/dL (Negative) 02/27/23 03:30 Ur Leukocyte Esterase Negative (Negative) 02/27/23 03:30 Urine RBC 0-4 /hpf (0-2) H 02/27/23 03:30 Urine WBC 0-4 /hpf (0-5) H 02/27/23 03:30 Ur Squamous Epith Cells None /hpf (0-5) 02/27/23 03:30 Ur Transition Epith Cell 0-4 /hpf 02/27/23 03:30 Amorphous Sediment Not Reportable 02/27/23 03:30 Urine Bacteria 1+ /hpf (NONE) H 02/27/23 03:30 Urine Mucus 3+ /hpf 02/27/23 03:30 Urine Opiates Screen Positive ng/mL (Negative) H 02/26/23 01:00 Ur Barbiturates Screen Negative ng/mL (Negative) 02/26/23 01:00 Ur Phencyclidine Scrn Negative ng/mL (Negative) 02/26/23 01:00 Ur Amphetamines Screen Negative ng/mL (Negative) 02/26/23 01:00 U Benzodiazepines Scrn Negative ng/mL (Negative) 02/26/23 01:00 Urine Cocaine Screen Negative ng/mL (Negative) 02/26/23 01:00 U Marijuana (THC) Screen Positive ng/mL (Negative) H 02/26/23 01:00 Ethyl Alcohol < 10 mg/dL (0-10) 02/25/23 15:38 MICHAEL IFA Animal Tis Res Negative (NEGATIVE) 02/25/23 09:34 KAREN-1 Antibody <1.0 neg AI (<1.0 NEG) 02/25/23 09:34 SS-A Antibody <1.0 neg AI (<1.0 NEG) 02/25/23 09:34 SS-B Antibody <1.0 neg AI (<1.0 NEG) 02/25/23 09:34 Sm (Bhat) Antibody <1.0 neg AI (<1.0 NEG) 02/25/23 09:34 ADVERTISING MATERIAL DISTRIBUTOR Antibody <1.0 neg AI (<1.0 NEG) 02/25/23 09:34 Scl-70 Antibody <1.0 neg AI (<1.0 NEG) 02/25/23 09:34 Centromere B Antibody <1.0 neg AI (<1.0 NEG) 02/25/23 09:34 Thyroid Peroxidase Ab 1 IU/mL (<9) 02/25/23 09:34 Complement C3c 63 mg/dL (82-185) L 02/25/23 09:34 Complement C4c 7 mg/dL (15-53) L 02/25/23 09:34 CH50 Classical Pathway 32 U/mL (31-60) 02/25/23 09:34 Blood Type O Positive 02/25/23 18:27 Rho(D) Type Rh positive 02/25/23 18:27 Antibody Screen Negative 02/25/23 18:27 Micro: Microbiology 03/01/23 23:07 Urine Culture - Preliminary Urine Catheterized 03/01/23 22:54 Blood Culture - Preliminary Blood NEGATIVE TO DATE 03/01/23 22:52 Blood Culture - Preliminary Blood NEGATIVE TO DATE 02/25/23 15:42 Blood Culture - Final Blood NO GROWTH AFTER 5 DAYS 02/25/23 15:38 Blood Culture - Final Blood NO GROWTH AFTER 5 DAYS A&P Assessment and plan (1) Acute on chronic HFrEF (heart failure with reduced ejection fraction): Currently the heart failure seems to be fairly compensated. May continue on the current medication. (2) Elevated troponin: Most likely from type II AR. At this point, the patient is noted in shape to undergo any invasive medical procedures. Optimizing the medical treatment will be the plan of (3) Weight loss: May continue on the current management (4) Pulmonary HTN: Since the patient has no specific symptoms pertaining to pulmonary hypertension, may hold off on any further intervention at this time. Continue on the current medications (5) COPD exacerbation: As mentioned above Plan If the patient continues remain stable, may be discharged home from a cardiac standpoint Attestations 2 Medical Necessity Statement*: Disposition as per the primary Coding Level of Care Code 53471 Diagnoses Acute on chronic HFrEF (heart failure with reduced ejection fraction) I50.23 Elevated troponin R79.89 Weight loss R63.4 Pulmonary HTN I27.20 COPD exacerbation J44.1
[2023-03-03] MEDS: atorvastatin 40 mg Tablet PO (20:52)
[2023-03-04] VITALS (20 sets, daily range): BP systolic 81–125; BP diastolic 55–77; PULSE 85–92; RESP 10–23; TEMP 36.6–36.9; O2SAT 90–98
[2023-03-04] MEDS: ipratropium 0.5 mg/2.5 mL Neb INHALATION ×7 (00:26→23:51)
[2023-03-04 01:00] LABS: DNA AB (DS) CRITHIDIA,IFA NEGATIVE (NEGATIVE)
[2023-03-04 05:15] LABS: Basophils % 0.1 %; Eosinophils % 0.1 %; Lymphocytes # 0.6 10^3/uL (0.8-4.8); Lymphocytes % 5.9 %; Mean Corpuscular HGB Conc 33.1 g/dL (30-55); Mean Corpuscular Hemoglobin 27.5 pg (27-33); Monocytes # 0.9 10^3/uL (0.2-0.9); Monocytes % 7.9 %; Neutrophils # 9.22 10^3/uL (1.8-7.7); Neutrophils % 85.4 %; Nucleated Red Blood Cells % 0.2 %; Platelet Count 120 10^3/cmm (157-399); Red Blood Count 5.06 10^6/uL (3.85-5.65); Red Cell Distribution Width 14.6 % (12.1-15.1); White Blood Count 10.79 10^3/uL (3.29-11.43)
[2023-03-04 05:29] LABS: Anion Gap 13.8 (5-19); Blood Urea Nitrogen 23 mg/dL (8-23); Calcium 8.6 mg/dL (8.5-10.5); Carbon Dioxide 27 mmol/L (22-29); Chloride 100 mmol/L (98-107); Glomerular Filtration Rate 134.4 mL/min (90-130); Glucose 128 mg/dL (65-115); Magnesium 1.8 mg/dL (1.7-2.3); Osmolality Calculated 289 mOsm/kg (285-295); Phosphorus 3.9 mg/dL (2.5-4.5); Potassium 3.8 mmol/L (3.5-5.1); Sodium 137 mmol/L (136-145)
[2023-03-04 05:38] LABS: NT Pro B Type Natriuretic Pept 6948 pg/mL (0-125)
[2023-03-04] MEDS: sucralfate 1 gm/10 mL Oral Liq UDC PO ×3 (06:11→17:18)
[2023-03-04] MEDS: pantoprazole DR 40 mg Tablet PO ×2 (06:11→17:18)
[2023-03-04] MEDS: budesonide 0.5 mg/2 mL Neb INHALATION ×2 (07:45→19:50)
[2023-03-04] MEDS: levalbuterol 1.25 mg/3 mL Neb INHALATION ×5 (07:45→23:50)
--- NOTE | 2023-03-04 09:03 | PM.PN ---
Subjective Subjective: this patient had an episode of , what it appears to be a fast ventricular tachycardia on the monitor. Patient complains of occasional chest discomfort. no syncopal episode. No fever or chills. Shortness of breath has significantly improved. Medications: Medication Review Details: Current Medications Acetaminophen (Acetaminophen 500 Mg Tablet) 500 mg PO Q4H PRN PRN Reason: fever Last Admin: 02/25/23 09:28 Dose: 500 mg Acetazolamide (Acetazolamide 250 Mg Tablet) 250 mg PO DAILY [facility]ILO Last Admin: 03/03/23 09:53 Dose: 250 mg Atorvastatin Calcium (Atorvastatin 40 Mg Tablet) 40 mg PO BEDTIME [facility]ILO Last Admin: 03/03/23 20:52 Dose: 40 mg Benzonatate (Benzonatate 100 Mg Capsule) 100 mg PO TID PRN PRN Reason: COUGH Last Admin: 02/25/23 10:36 Dose: 100 mg Budesonide (Budesonide 0.5 Mg/2 Ml Neb) 0.5 mg INHALATION BID.RESPIRATORY CIRILO Last Admin: 03/04/23 07:45 Dose: 0.5 mg Furosemide (Furosemide 40 Mg Tablet) 40 mg PO DAILY@0800 [facility] Last Admin: 03/03/23 09:53 Dose: 40 mg Ipratropium [place] (Ipratropium 0.5 Mg/2.5 Ml Neb) 0.5 mg INHALATION Q4H.RESPIRATORY CIRILO Last Admin: 03/04/23 07:45 Dose: 0.5 mg Lanolin (Lanolin Oint 7 Gm) 1 applic TOPICAL PRN PRN PRN Reason: DRYNESS Levalbuterol HCl (Levalbuterol 1.25 Mg/3 Ml Neb) 1.25 mg INHALATION Q4H.RESPIRATORY PRN PRN Reason: SHORTNESS OF BREATH Last Admin: 03/04/23 07:45 Dose: 1.25 mg Lidocaine HCl (Lidocaine 2% Viscous 15 Ml Udc) 1 ml TOPICAL PRN PRN PRN Reason: Anesthetic prior to IV start Lisinopril (Lisinopril 2.5 Mg Tablet) 2.5 mg PO DAILY [facility]O Last Admin: 03/03/23 09:53 Dose: 2.5 mg Lorazepam (Lorazepam 2 Mg/Ml Inj 1 Ml) 0.5 mg IVP Q4H PRN PRN Reason: ANXIETY Last Admin: 03/01/23 17:35 Dose: 0.5 mg Magnesium Hydroxide (Magnesium Hydroxide 30 Ml Udc) 30 ml PO DAILY PRN PRN Reason: CONSTIPATION Last Admin: 03/02/23 11:27 Dose: 30 ml Methylprednisolone Sodium Succinate (Methylprednisolone Sod Succ 40 Mg/Ml Inj) 40 mg IVP DAILY [facility] Last Admin: 03/03/23 09:54 Dose: 40 mg Metoprolol Tartrate (Metoprolol Tartrate 25 Mg Tablet) 25 mg PO BID [facility] Last Admin: 03/03/23 20:52 Dose: 25 mg Nicotine (Nicotine 7 Mg Patch) 1 patch TRANSDERMA DAILY [facility] Last Admin: 03/03/23 09:53 Dose: 1 patch Ondansetron HCl (Ondansetron 2 Mg/Ml Sdv 2 Ml) 8 mg IVP Q6H PRN PRN Reason: NAUSEA AND VOMITING Ondansetron HCl (Ondansetron 2 Mg/Ml Sdv 2 Ml) 4 mg IVP Q15M PRN PRN Reason: Nausea/Vomiting PACU PHASE II Pantoprazole Sodium ([facility]oprazole Dr 40 Mg Tablet[facility] Last Admin: 03/04/23 06:11 Dose: 40 mg Promethazine HCl (Promethazine 25 Mg/Ml Sdv 1 Ml) 25 mg IM Q6H PRN PRN Reason: NAUSEA Spironolactone (Spironolactone 25 Mg Tablet) 25 mg PO DAILY [facility] Last Admin: 03/03/23 09:53 Dose: 25 mg Sucralfate (Sucralfate 1 Gm/10 Ml Oral Liq Udc) 1 gm PO Q6H [facility] Last Admin: 03/04/23 06:11 Dose: 1 gm Vitals/I&O/Wt Last Vital Signs Temp 97.9 F 03/04/23 04:00 Pulse 90 03/04/23 07:54 Resp 18 03/04/23 07:54 BP 91/58 03/04/23 04:00 Pulse Ox 94 03/04/23 07:54 O2 Del Method Nasal Cannula 03/04/23 07:54 O2 Flow Rate 1 03/04/23 07:54 FiO2 30 03/03/23 02:21 03/03/23 03/04/23 03/04/23 22:59 06:59 14:59 Intake Total 680 / 1170 300 / 1470 Output Total 2100 / 2630 500 / 3130 Balance -1420 / -1460 -200 / -1660 Weight last 48 hrs Weight 105 lb 8 oz Weight 112 lb 11.2 oz Physical Exam Narrative: GENERAL: The patient is alert and oriented times three. Not in any acute distress. Severely emaciated HEENT: No significant pallor, icterus or lymphadenopathy.Oral cavity: There are no mucous membrane lesions. NECK: Trachea appears to be central. No masses noted. No JVD or thyromegaly appreciated. RESPIRATORY: Chest is symmetrical. No intercostals muscle retraction or any accessory muscle activation. There is no chest wall tenderness. Breath sounds are heard bilaterally. No rales or rhonchi heard. No evidence of any consolidation. BREASTS: Deferred. HEART: The heart sounds are normal. No S3 or S4 for systolic murmur in the lower sternal border. No diastolic murmurs.. No pericardial rub ABDOMEN: No vessel pulsations or distention. No tenderness. No organomegaly appreciated. Bowel sounds are normally heard. : Deferred. RECTAL: Deferred. LYMPHATIC: No lymphadenopathy noted in the neck. EXTREMITIES: No edema or cyanosis. No clubbing. MUSCULOSKELETAL: No acute joint deformities or swelling SKIN: There are no significant rashes or ecchymosis NEUROPSYCHIATRIC: The patient is alert and oriented x3. Appears to be in a good mood. No tremors or rigidity noted. Urinary Catheter Management: [place]: Cath Placed During This Visit: yes Reason for Continuing Indwelling Catheter: Accurate Measurement of Urinary Output in Critically Ill Patients Urinary Catheter Date of Insertion: 02/27/23 Urinary Catheter Time of Insertion: 14:51 Data 03/04/23 04:42 03/04/23 04:42 Other Labs: Laboratory Last Values WBC 10.79 10^3/uL (3.29-11.43) 03/04/23 04:42 Corrected WBC Cancelled 02/27/23 16:00 RBC 5.06 10^6/uL (3.85-5.65) 03/04/23 04:42 Hgb 13.90 g/dL (11.27-16.99) 03/04/23 04:42 Hct 42.0 % (37-53) 03/04/23 04:42 MCV 83.0 fl (82-101) 03/04/23 04:42 MCH 27.5 pg (27-33) 03/04/23 04:42 MCHC 33.1 g/dL (30-55) 03/04/23 04:42 RDW 14.6 % (12.1-15.1) 03/04/23 04:42 Plt Count 120 10^3/cmm (157-399) L 03/04/23 04:42 MPV 10.0 fL (7.4-10.4) 03/04/23 04:42 Gran % Cancelled 02/27/23 16:00 Neut % (Auto) 85.4 % 03/04/23 04:42 Lymph % (Auto) 5.9 % 03/04/23 04:42 [place] % (Auto) 7.9 % 03/04/23 04:42 Eos % (Auto) 0.1 % 03/04/23 04:42 Baso % (Auto) 0.1 % 03/04/23 04:42 Neut # (Auto) 9.22 10^3/uL (1.8-7.7) H 03/04/23 04:42 Lymph # (Auto) 0.6 10^3/uL (0.8-4.8) L 03/04/23 04:42 [place]oux # (Auto) 0.9 10^3/uL (0.2-0.9) 03/04/23 04:42 Eos # (Auto) 0.0 10^3/uL (0.0-0.8) 03/04/23 04:42 Baso # (Auto) 0.0 10^3/uL (0.0-0.1) 03/04/23 04:42 Absolute Gran (auto) Cancelled 02/27/23 16:00 Nucleated RBC % (auto) 0.2 % 03/04/23 04:42 Nucleated RBCs # 0.0 /100WBC 03/04/23 04:42 ESR 1 mm/hr (0-10) 02/25/23 09:34 PT 17.60 SECONDS (12.1-14.9) H 02/25/23 17:45 INR 1.39 (0.8-1.2) H 02/25/23 17:45 D-Dimer 6.28 ug/mLFEU (0-0.59) H 02/25/23 05:19 Specimen Type Arterial 03/01/23 22:57 Sample Site Radial, right 03/01/23 22:57 ABG pH 7.44 (7.35-7.45) 03/01/23 22:57 ABG pCO2 53.7 mmHg (35-45) H 03/01/23 22:57 ABG pO2 102.0 mmHg (80.0-100.0) H 03/01/23 22:57 ABG PO2/FiO2 Ratio 0 02/27/23 14:31 ABG HCO3 36.4 mmol/L (22-26) H 03/01/23 22:57 ABG O2 Saturation 97.9 03/01/23 22:57 ABG Base Excess 10.4 mmol/L (-2.0-2.0) H 03/01/23 22:57 Abelino Test Pos 03/01/23 22:57 A-a O2 Gradient Not Reportable 03/01/23 22:57 Hematocrit 38.9 % (42-52) L 03/01/23 22:57 Hgb O2 Saturation 96.2 % (95-100) 03/01/23 22:57 Carboxyhemoglobin 1.1 %THgb (0.4-20.1) 03/01/23 22:57 Methemoglobin 0.6 % (0.4-1.5) 03/01/23 22:57 Total Hemoglobin 12.7 g/dL (14-18) L 03/01/23 22:57 Sodium 134.0 mmol/L (131-143) 03/01/23 22:57 Potassium 4.6 mmol/L (3.5-5.0) 03/01/23 22:57 Glucose 160.0 mg/dL (70-115) H 03/01/23 22:57 Ionized Calcium 1.2 mmol/L (1.1-1.4) 03/01/23 22:57 O2 Delivery Device Nc 03/01/23 22:57 O2 Liters/Min 2.0 % 03/01/23 22:57 FiO2 50.0 % 02/27/23 14:31 Fire Investigation Lieutenant ID [email or web address] 03/01/23 22:57 Sodium 137 mmol/L (136-145) 03/04/23 04:42 Potassium 3.8 mmol/L (3.5-5.1) 03/04/23 04:42 Chloride 100 mmol/L (98-107) 03/04/23 04:42 Carbon Dioxide 27 mmol/L (22-29) 03/04/23 04:42 Anion Gap 13.8 (5-19) 03/04/23 04:42 BUN 23 mg/dL (8-23) 03/04/23 04:42 Creatinine 0.6 mg/dL (0.7-1.2) L 03/04/23 04:42 GFR Calculation 134.4 mL/min (90-130) H 03/04/23 04:42 Glucose 128 mg/dL (65-115) H 03/04/23 04:42 Estimat Average Glucose 134 02/25/23 09:34 Hemoglobin A1c 6.3 % (4.0-6.0) H 02/25/23 09:34 Calculated Osmolality 289 mOsm/kg (285-295) 03/04/23 04:42 Lactate 2.4 mmol/L (0.5-2.2) H 03/01/23 22:52 Calcium 8.6 mg/dL (8.5-10.5) 03/04/23 04:42 Phosphorus 3.9 mg/dL (2.5-4.5) 03/04/23 04:42 Magnesium 1.8 mg/dL (1.7-2.3) 03/04/23 04:42 Total Bilirubin 1.8 mg/dL (0.15-1.2) H 02/27/23 21:04 Direct Bilirubin 0.90 mg/dL (0.00-0.30) H 02/27/23 21:04 GGT 381 U/L (8-61) H 03/03/23 05:14 AST 57 U/L (0-40) H 03/03/23 05:14 ALT 382 U/L (0-41) H 03/03/23 05:14 Alkaline Phosphatase 292 U/L (40-130) H 02/27/23 21:04 Ammonia 46 umol/L (16-60) 02/28/23 03:25 Lactate Dehydrogenase 424 U/L (135-225) H 03/03/23 05:14 Troponin T Baseline 34 ng/L (0-15) H 02/26/23 18:20 Troponin T 120 Minute 26.07 ng/L (0-15) H 02/26/23 21:04 Delta Troponin T -7.93 ABS# (0-10) L 02/26/23 21:04 Troponin T Hi Sens 6Hr 25.98 ng/L (0-15) H 02/27/23 02:02 Troponin T Hi Sens 6Hr Delta -8.02 ng/L (0-12) L 02/27/23 02:02 C-Reactive Protein 21.0 mg/L (0.0-4.9) H 02/26/23 03:05 NT-Pro-B Natriuret Pep 6948 pg/mL (0-125) H 03/04/23 04:42 Total Protein 6.1 g/dL (6.6-8.7) L 02/27/23 21:04 Albumin 3.7 g/dL (3.5-5.2) 02/27/23 21:04 Globulin 2.4 g/dL (1.3-4.6) 02/27/23 21:04 Lipase 15 U/L (13-60) 02/25/23 09:34 Vitamin B12 > 2000 pg/mL (232-1245) H 02/25/23 02:22 Procalcitonin 0.13 ng/mL (0-0.5) 02/25/23 08:10 TSH 2.61 uIU/mL (0.27-4.20) 02/25/23 09:34 Urine Color Dark yellow (Yellow) 02/27/23 03:30 Urine Appearance Sl hazy (CLEAR) A 02/27/23 03:30 Urine pH 5 (5-7) 02/27/23 03:30 Ur Specific [place] 1.020 (1.005-1.030) 02/27/23 03:30 Urine Protein 1+ (Negative) H 02/27/23 03:30 Urine Glucose (UA) Norm (Normal) 02/27/23 03:30 Urine Ketones Negative (Negative) 02/27/23 03:30 Urine Blood 2+ (Negative) H 02/27/23 03:30 Urine Nitrate Negative (Negative) 02/27/23 03:30 Urine Bilirubin Neg (Negative) 02/27/23 03:30 Urine Urobilinogen Neg mg/dL (Negative) 02/27/23 03:30 Ur Leukocyte Esterase Negative (Negative) 02/27/23 03:30 Urine RBC 0-4 /hpf (0-2) H 02/27/23 03:30 Urine WBC 0-4 /hpf (0-5) H 02/27/23 03:30 Ur Squamous Epith Cells None /hpf (0-5) 02/27/23 03:30 Ur Transition Epith Cell 0-4 /hpf 02/27/23 03:30 Amorphous Sediment Not Reportable 02/27/23 03:30 Urine Bacteria 1+ /hpf (NONE) H 02/27/23 03:30 Urine Mucus 3+ /hpf 02/27/23 03:30 Urine Opiates Screen Positive ng/mL (Negative) H 02/26/23 01:00 Ur Barbiturates Screen Negative ng/mL (Negative) 02/26/23 01:00 Ur Phencyclidine Scrn Negative ng/mL (Negative) 02/26/23 01:00 Ur Amphetamines Screen Negative ng/mL (Negative) 02/26/23 01:00 U Benzodiazepines Scrn Negative ng/mL (Negative) 02/26/23 01:00 Urine Cocaine Screen Negative ng/mL (Negative) 02/26/23 01:00 U Marijuana (THC) Screen Positive ng/mL (Negative) H 02/26/23 01:00 Ethyl Alcohol < 10 mg/dL (0-10) 02/25/23 15:38 MICHAEL IFA Animal Tis Res Negative (NEGATIVE) 02/25/23 09:34 KAREN-1 Antibody <1.0 neg AI (<1.0 NEG) 02/25/23 09:34 SS-A Antibody <1.0 neg AI (<1.0 NEG) 02/25/23 09:34 SS-B Antibody <1.0 neg AI (<1.0 NEG) 02/25/23 09:34 Sm (Bhat) Antibody <1.0 neg AI (<1.0 NEG) 02/25/23 09:34 TELECOMMUNICATIONS ENGINEER Antibody <1.0 neg AI (<1.0 NEG) 02/25/23 09:34 Scl-70 Antibody <1.0 neg AI (<1.0 NEG) 02/25/23 09:34 Anti-ds DNA IgG (Crith) Negative (NEGATIVE) 02/25/23 09:34 Centromere B Antibody <1.0 neg AI (<1.0 NEG) 02/25/23 09:34 Thyroid Peroxidase Ab 1 IU/mL (<9) 12/10/23 09:34 Complement C3c 63 mg/dL (82-185) L 02/25/23 09:34 Complement C4c 7 mg/dL (15-53) L 02/25/23 09:34 CH50 Classical Pathway 32 U/mL (31-60) 02/25/23 09:34 Blood Type O Positive 02/25/23 18:27 Rho(D) Type Rh positive 02/25/23 18:27 Antibody Screen Negative 02/25/23 18:27 Micro: Microbiology 02/26/23 18:24 Blood Culture - Final Blood NO GROWTH AFTER 5 DAYS 02/26/23 18:20 Blood Culture - Final Blood NO GROWTH AFTER 5 DAYS 03/01/23 23:07 Urine Culture - Preliminary Urine Catheterized Other data: Myocardial perfusion imaging on 02/28/2023 1. Medium sized predominantly fixed perfusion abnormality of moderate severity of basal to apical inferior, mid to apical septal, apical lateral scott. 2. This may represent old myocardial infarction in right coronary artery territory or attenuation artifact. 3. The left ventricular ejection fraction is severely reduced with a value of 15%. There is severe global hypokinesis. 4. EKG portion of the study will be reported separatel Echocardiogram on 02/25/2023 Severely increased left ventricular cavity size. Decreased left ventricular wall thickness. Severely decreased left ventricular systolic function. Global left ventricular hypokinesis. Left ventricular ejection fraction is estimated at 10 %. Normal right ventricular size. Mildly decreased right ventricular systolic function. Moderate pulmonary hypertension, RVSP 50.2 mmHg. Mildly increased right atrial size. Mildly increased left atrial size. Structurally normal mitral valve. Moderate-severe mitral valve regurgitation. There are no prior echocardiogram studies to compare. A&P Assessment and plan (1) Ventricular tachycardia by electrocardiography: In view of the patient's severe LV systolic dysfunction, I may go ahead and start him on amiodarone 400 mg p.o. twice daily. (2) Acute on chronic HFrEF (heart failure with reduced ejection fraction): Currently the heart failure seems to be fairly compensated. May continue on the current medication. (3) Nonischemic congestive cardiomyopathy: Patient appears to have severe LV systolic dysfunction, possibly end-stage disease. An eventual ICD/HAND II THERMAL CUTTER-D with a bridging LifeVest is a consideration. However because of the patient's severe and compounding comorbidities, his overall prognosis going to be very poor. This needs to be further discussed with the family to make a final decision (4) Elevated troponin: Most likely from type II HI. At this point, in the absence of any chest pain and any objective evidence of ischemia it would be appropriate to continue the medical management. (5) Weight loss: The exact etiology is not clear. An occult malignancy is a consideration. Severe malnutrition could be a major contributing factor. Getting the social service involved in his care would be a poor (6) Pulmonary HTN: Since the patient has no specific symptoms pertaining to pulmonary hypertension, may hold off on any further intervention at this time. Continue on the current medications (7) COPD exacerbation: may continue on the current management. Plan Patient's overall cardiovascular status is stable. A decision has to be made regarding LifeVest/defibrillator after discussing with his responsible family members. Attestations Medical Necessity Statement*: deferred to the primary Coding Level of Care Code 91329 Diagnoses Ventricular tachycardia by electrocardiography I47.20 Acute on chronic HFrEF (heart failure with reduced ejection fraction) I50.23 Nonischemic congestive cardiomyopathy I42.0 Elevated troponin R79.89 Weight loss R63.4 Pulmonary HTN I27.20 COPD exacerbation J44.1
[2023-03-04] MEDS: methylPREDNISolone sod succ 40 mg/mL INJ IVP (09:37)
[2023-03-04] MEDS: spironolactone 25 mg Tablet PO (09:37)
[2023-03-04] MEDS: lisinopril 2.5 mg Tablet PO (09:37)
[2023-03-04] MEDS: FUROsemide 40 mg Tablet PO (09:37)
[2023-03-04] MEDS: nicotine 7 mg Patch 1 PATCH TRANSDERMA (09:38)
[2023-03-04] MEDS: metoprolol tartrate 25 mg Tablet PO (09:38)
[2023-03-04] MEDS: acetaZOLAMIDE 250 mg Tablet PO (09:38)
[2023-03-04] MEDS: acetaminophen 500 mg Tablet PO (10:19)
[2023-03-04] MEDS: amiodarone 200 mg Tablet 400 MG PO ×2 (10:19→17:18)
[2023-03-04 10:51] LABS: Alanine Aminotransferase 290 U/L (0-41); Albumin Level 3.4 g/dL (3.5-5.2); Alkaline Phosphatase 193 U/L (40-130); Aspartate Amino Transferase 34 U/L (0-40); Globulin 2.1 g/dL (1.3-4.6); Total Protein 5.5 g/dL (6.6-8.7)
--- NOTE | 2023-03-04 11:07 | PC.NURSE ---
Dr. Hanesn ordered amiodarone 400mg PO BID. Order entered.
--- NOTE | 2023-03-04 13:56 | P.PN_ITS ---
Subjective 2 Subjective: Patient seen at bedside today Sitting out of bed to chair Saturating 93% on 1 L nasal cannula-will try to taper it off There is still mild wheezing on left side of the chest-he will get DuoNeb nebulization-discharged with ICS/LABA LAMA -Currently levofloxacin, no sputum cultu res -For advanced heart failure-he is on Las ix 40 Mg p.o. daily-so far net -2 L since admission; he is on spironolactone 12 Mg p.o. daily, metoprolol 20 Mg p.o. twice daily, -He had a run of V. tach-increased amiod arone 400 Mg p.o. twice daily-cardiology recommendations appreciated -Other labs and imaging reviewed Medications: Reviewed: Yes Medication Review Details: Current Medications Acetaminophen (Acetaminophen 500 Mg Tablet) 500 mg PO Q4H PRN PRN Reason: fever Last Admin: 02/25/23 09:28 Dose: 500 mg Acetazolamide (Acetazolamide 250 Mg Tablet) 250 mg PO DAILY CIRILO Last Admin: 03/03/23 09:53 Dose: 250 mg Atorvastatin Calcium (Atorvastatin 40 Mg Tablet) 40 mg PO BEDTIME CIRILO Last Admin: 03/03/23 20:52 Dose: 40 mg Benzonatate (Benzonatate 100 Mg Capsule) 100 mg PO TID PRN PRN Reason: COUGH Last Admin: 02/25/23 10:36 Dose: 100 mg Budesonide (Budesonide 0.5 Mg/2 Ml Neb) 0.5 mg INHALATION BID.RESPIRATORY CIRILO Last Admin: 03/04/23 07:45 Dose: 0.5 mg Furosemide (Furosemide 40 Mg Tablet) 40 mg PO DAILY@0800 CIRILO Last Admin: 03/03/23 09:53 Dose: 40 mg Ipratropium [place] (Ipratropium 0.5 Mg/2.5 Ml Neb) 0.5 mg INHALATION Q4H.RESPIRATORY CIRILO Last Admin: 03/04/23 07:45 Dose: 0.5 mg Lanolin (Lanolin Oint 7 Gm) 1 applic TOPICAL PRN PRN PRN Reason: DRYNESS Levalbuterol HCl (Levalbuterol 1.25 Mg/3 Ml Neb) 1.25 mg INHALATION Q4H.RESPIRATORY PRN PRN Reason: SHORTNESS OF BREATH Last Admin: 03/04/23 07:45 Dose: 1.25 mg Lidocaine HCl (Lidocaine 2% Viscous 15 Ml Udc) 1 ml TOPICAL PRN PRN PRN Reason: Anesthetic prior to IV start Lisinopril (Lisinopril 2.5 Mg Tablet) 2.5 mg PO DAILY [facility] Last Admin: 03/03/23 09:53 Dose: 2.5 mg Lorazepam (Lorazepam 2 Mg/Ml Inj 1 Ml) 0.5 mg IVP Q4H PRN PRN Reason: ANXIETY Last Admin: 03/01/23 17:35 Dose: 0.5 mg Magnesium Hydroxide (Magnesium Hydroxide 30 Ml Udc) 30 ml PO DAILY PRN PRN Reason: CONSTIPATION Last Admin: 03/02/23 11:27 Dose: 30 ml Methylprednisolone Sodium Succinate (Methylprednisolone Sod Succ 40 Mg/Ml Inj) 40 mg IVP DAILY [facility] Last Admin: 03/03/23 09:54 Dose: 40 mg Metoprolol Tartrate (Metoprolol Tartrate 25 Mg Tablet) 25 mg PO BID [facility] Last Admin: 03/03/23 20:52 Dose: 25 mg Nicotine (Nicotine 7 Mg Patch) 1 patch TRANSDERMA DAILY [facility] Last Admin: 03/03/23 09:53 Dose: 1 patch Ondansetron HCl (Ondansetron 2 Mg/Ml Sdv 2 Ml) 8 mg IVP Q6H PRN PRN Reason: NAUSEA AND VOMITING Ondansetron HCl (Ondansetron 2 Mg/Ml Sdv 2 Ml) 4 mg IVP Q15M PRN PRN Reason: Nausea/Vomiting PACU PHASE II Pantoprazole Sodium (Pantoprazole Dr 40 Mg Tablet) 40 mg PO BIDAC [facility] Last Admin: 03/04/23 06:11 Dose: 40 mg Promethazine HCl (Promethazine 25 Mg/Ml Sdv 1 Ml) 25 mg IM Q6H PRN PRN Reason: NAUSEA Spironolactone (Spironolactone 25 Mg Tablet) 25 mg PO DAILY [facility] Last Admin: 03/03/23 09:53 Dose: 25 mg Sucralfate (Sucralfate 1 Gm/10 Ml Oral Liq Udc) 1 gm PO Q6H [facility] Last Admin: 03/04/23 06:11 Dose: 1 gm Vitals/I&O/Wt Last Vital Signs Temp 98.2 F 03/04/23 12:00 Pulse 92 03/04/23 12:00 Resp 20 H 03/04/23 12:00 BP 91/58 03/04/23 04:00 Pulse Ox 90 03/04/23 12:00 O2 Del Method Nasal Cannula 03/04/23 12:00 O2 Flow Rate 1 03/04/23 12:00 FiO2 30 03/03/23 02:21 03/03/23 03/04/23 03/04/23 22:59 06:59 14:59 Intake Total 680 / 1170 300 / 1470 220 / 220 Output Total 2100 / 2630 500 / 3130 550 / 550 Balance -1420 / -1460 -200 / -1660 -330 / -330 Weight last 48 hrs Weight 105 lb 8 oz Weight 112 lb 11.2 oz Physical Exam 2 Narrative: General: alert, NAD HEENT: conj clear, EOMI, PERRL, mmm, Neck: supple, no meningismus Heme: no cervical LAP Respiratory: Inspection: No visible deformity of the chest wall Palpation: Trachea is mildly deviated to the right, bilateral symmetric expansion Percussion: Bilateral tympanic percussion note both anterior and posteriorly Auscultation: Bilateral diffuse expiratory wheeze Cardiovascular: rrr, nl s1s2, no mrg Abdomen: soft, nt, nd, no r/g, bs+ Extremities: pulses +, no edema, no c/c : no CVA tenderness Skin: intact, no rash MSK: no back or neck pain Neurologic: grossly intact Urinary Catheter Management: Linares: Cath Placed During This Visit: yes Reason for Continuing Indwelling Catheter: Accurate Measurement of Urinary Output in Critically Ill Patients Urinary Catheter Date of Insertion: 02/27/23 Urinary Catheter Time of Insertion: 14:51 Data 03/04/23 04:42 03/04/23 04:42 Other Labs: Radiology Impressions Chest/Abdomen/Pelvis CT 02/25/23 12:02 IMPRESSION: 1. Interval development of findings suspicious for esophagitis in the mid/distal esophagus. Upper endoscopy may be obtained for further evaluation as clinically indicated. 2. No evidence for pulmonary embolism. 3. Bronchial wall thickening in the right and left lower lobes. Findings could be due to emphysematous changes versus bronchitis. 4. Mild body wall edema. 5. Incidental/nonacute findings are listed in the report. IMPRESSION: 1. Inflamed gastric ulcer in the posterior distal body of the stomach. Increased density layering in the lumen of the stomach, this could represent partially digested medications however a gastric bleed can not be ruled out. Upper endoscopy may be obtained for further evaluation as clinically indicated. 2. Mild fatty infiltration of the liver. 3. Diffuse, moderate bladder wall thickening. In the correct clinical setting, this may suggest cystitis. Recommend correlation with laboratory findings. Alternatively, this may be secondary to chronic outlet obstruction. 4. Mild body wall edema. 5. Incidental/nonacute findings are listed in the report. ADDENDUM: 02/25/23 [id number] THIS REPORT CONTAINS FINDINGS THAT MAY BE CRITICAL TO PATIENT CARE. The findings were verbally communicated via telephone conference with KESHA Easley at 4:59 PM BOGGER OPERATOR on 02/25/2023. The findings were acknowledged and understood. Abdomen/Pelvis CT 02/26/23 17:00 IMPRESSION: 1. Borderline to mild cardiomegaly. 2. Interval appearance of moderate thickening in the distal esophageal wall suggesting possible esophagitis. 3. 9 mm Hutch diverticulum in the left posterolateral urinary bladder wall. Axial series 3, image 65. 9 mm gastrohepatic ligament lymph node which may be reactive versus neoplastic. 4. Bowel wall thickening in the rectum consistent with mild proctitis. 5. Dilated air-filled transverse colon and hepatic flexure with moderate retained feces in the ascending colon. 6. No obvious pneumoperitoneum, peritoneal fluid or retroperitoneal hemorrhage. Laboratory Results WBC 10.79 10^3/uL (3.29-11.43) 03/04/23 04:42 Corrected WBC Cancelled 02/27/23 16:00 RBC 5.06 10^6/uL (3.85-5.65) 03/04/23 04:42 Hgb 13.90 g/dL (11.27-16.99) 03/04/23 04:42 Hct 42.0 % (37-53) 03/04/23 04:42 MCV 83.0 fl (82-101) 03/04/23 04:42 MCH 27.5 pg (27-33) 03/04/23 04:42 MCHC 33.1 g/dL (30-55) 03/04/23 04:42 RDW 14.6 % (12.1-15.1) 03/04/23 04:42 Plt Count 120 10^3/cmm (157-399) L 03/04/23 04:42 MPV 10.0 fL (7.4-10.4) 03/04/23 04:42 Gran % Cancelled 02/27/23 16:00 Neut % (Auto) 85.4 % 03/04/23 04:42 Lymph % (Auto) 5.9 % 03/04/23 04:42 Lake % (Auto) 7.9 % 03/04/23 04:42 Eos % (Auto) 0.1 % 03/04/23 04:42 Baso % (Auto) 0.1 % 03/04/23 04:42 Neut # (Auto) 9.22 10^3/uL (1.8-7.7) H 03/04/23 04:42 Lymph # (Auto) 0.6 10^3/uL (0.8-4.8) L 03/04/23 04:42 Lake # (Auto) 0.9 10^3/uL (0.2-0.9) 03/04/23 04:42 Eos # (Auto) 0.0 10^3/uL (0.0-0.8) 03/04/23 04:42 Baso # (Auto) 0.0 10^3/uL (0.0-0.1) 03/04/23 04:42 Absolute Gran (auto) Cancelled 02/27/23 16:00 Nucleated RBC % (auto) 0.2 % 03/04/23 04:42 Nucleated RBCs # 0.0 /100WBC 03/04/23 04:42 ESR 1 mm/hr (0-10) 02/25/23 09:34 PT 17.60 SECONDS (12.1-14.9) H 02/25/23 17:45 INR 1.39 (0.8-1.2) H 02/25/23 17:45 D-Dimer 6.28 ug/mLFEU (0-0.59) H 02/25/23 05:19 Specimen Type Arterial 03/01/23 22:57 Sample Site Radial, right 03/01/23 22:57 ABG pH 7.44 (7.35-7.45) 03/01/23 22:57 ABG pCO2 53.7 mmHg (35-45) H 03/01/23 22:57 ABG pO2 102.0 mmHg (80.0-100.0) H 03/01/23 22:57 ABG PO2/FiO2 Ratio 0 02/27/23 14:31 ABG HCO3 36.4 mmol/L (22-26) H 03/01/23 22:57 ABG O2 Saturation 97.9 03/01/23 22:57 ABG Base Excess 10.4 mmol/L (-2.0-2.0) H 03/01/23 22:57 Abelino Test Pos 03/01/23 22:57 A-a O2 Gradient Not Reportable 03/01/23 22:57 Hematocrit 38.9 % (42-52) L 03/01/23 22:57 Hgb O2 Saturation 96.2 % (95-100) 03/01/23 22:57 Carboxyhemoglobin 1.1 %THgb (0.4-20.1) 03/01/23 22:57 Methemoglobin 0.6 % (0.4-1.5) 03/01/23 22:57 Total Hemoglobin 12.7 g/dL (14-18) L 03/01/23 22:57 Sodium 134.0 mmol/L (131-143) 03/01/23 22:57 Potassium 4.6 mmol/L (3.5-5.0) 03/01/23 22:57 Glucose 160.0 mg/dL (70-115) H 03/01/23 22:57 Ionized Calcium 1.2 mmol/L (1.1-1.4) 03/01/23 22:57 O2 Delivery Device Nc 03/01/23 22:57 O2 Liters/Min 2.0 % 03/01/23 22:57 FiO2 50.0 % 02/27/23 14:31 Sole Stapler Welt ID [email or web address] 03/01/23 22:57 Sodium 137 mmol/L (136-145) 03/04/23 04:42 Potassium 3.8 mmol/L (3.5-5.1) 03/04/23 04:42 Chloride 100 mmol/L (98-107) 03/04/23 04:42 Carbon Dioxide 27 mmol/L (22-29) 03/04/23 04:42 Anion Gap 13.8 (5-19) 03/04/23 04:42 BUN 23 mg/dL (8-23) 03/04/23 04:42 Creatinine 0.6 mg/dL (0.7-1.2) L 03/04/23 04:42 GFR Calculation 134.4 mL/min (90-130) H 03/04/23 04:42 Glucose 128 mg/dL (65-115) H 03/04/23 04:42 Estimat Average Glucose 134 02/25/23 09:34 Hemoglobin A1c 6.3 % (4.0-6.0) H 02/25/23 09:34 Calculated Osmolality 289 mOsm/kg (285-295) 03/04/23 04:42 Lactate 2.4 mmol/L (0.5-2.2) H 03/01/23 22:52 Calcium 8.6 mg/dL (8.5-10.5) 03/04/23 04:42 Phosphorus 3.9 mg/dL (2.5-4.5) 03/04/23 04:42 Phosphorus Cancelled 03/04/23 04:42 Magnesium 1.8 mg/dL (1.7-2.3) 03/04/23 04:42 Magnesium Cancelled 03/04/23 04:42 Total Bilirubin 1.0 mg/dL (0.15-1.2) 03/04/23 04:42 Direct Bilirubin 0.40 mg/dL (0.00-0.30) H 03/04/23 04:42 GGT 381 U/L (8-61) H 03/03/23 05:14 AST 34 U/L (0-40) 03/04/23 04:42 ALT 290 U/L (0-41) H 03/04/23 04:42 Alkaline Phosphatase 193 U/L (40-130) H 03/04/23 04:42 Ammonia 46 umol/L (16-60) 02/28/23 03:25 Lactate Dehydrogenase 424 U/L (135-225) H 03/03/23 05:14 Troponin T Baseline 34 ng/L (0-15) H 02/26/23 18:20 Troponin T 120 Minute 26.07 ng/L (0-15) H 02/26/23 21:04 Delta Troponin T -7.93 ABS# (0-10) L 02/26/23 21:04 Troponin T Hi Sens 6Hr 25.98 ng/L (0-15) H 02/27/23 02:02 Troponin T Hi Sens 6Hr Delta -8.02 ng/L (0-12) L 02/27/23 02:02 C-Reactive Protein 21.0 mg/L (0.0-4.9) H 02/26/23 03:05 NT-Pro-B Natriuret Pep 6948 pg/mL (0-125) H 03/04/23 04:42 Total Protein 5.5 g/dL (6.6-8.7) L 03/04/23 04:42 Albumin 3.4 g/dL (3.5-5.2) L 03/04/23 04:42 Globulin 2.1 g/dL (1.3-4.6) 03/04/23 04:42 Lipase 15 U/L (13-60) 02/25/23 09:34 Vitamin B12 > 2000 pg/mL (232-1245) H 02/25/23 02:22 Procalcitonin 0.13 ng/mL (0-0.5) 02/25/23 08:10 TSH 2.61 uIU/mL (0.27-4.20) 02/25/23 09:34 Urine Color Dark yellow (Yellow) 02/27/23 03:30 Urine Appearance Sl hazy (CLEAR) A 02/27/23 03:30 Urine pH 5 (5-7) 02/27/23 03:30 Ur Specific [place] 1.020 (1.005-1.030) 02/27/23 03:30 Urine Protein 1+ (Negative) H 02/27/23 03:30 Urine Glucose (UA) Norm (Normal) 02/27/23 03:30 Urine Ketones Negative (Negative) 02/27/23 03:30 Urine Blood 2+ (Negative) H 02/27/23 03:30 Urine Nitrate Negative (Negative) 02/27/23 03:30 Urine Bilirubin Neg (Negative) 02/27/23 03:30 Urine Urobilinogen Neg mg/dL (Negative) 02/27/23 03:30 Ur Leukocyte Esterase Negative (Negative) 02/27/23 03:30 Urine RBC 0-4 /hpf (0-2) H 02/27/23 03:30 Urine WBC 0-4 /hpf (0-5) H 02/27/23 03:30 Ur Squamous Epith Cells None /hpf (0-5) 02/27/23 03:30 Ur Transition Epith Cell 0-4 /hpf 02/27/23 03:30 Amorphous Sediment Not Reportable 02/27/23 03:30 Urine Bacteria 1+ /hpf (NONE) H 02/27/23 03:30 Urine Mucus 3+ /hpf 02/27/23 03:30 Urine Opiates Screen Positive ng/mL (Negative) H 02/26/23 01:00 Ur Barbiturates Screen Negative ng/mL (Negative) 02/26/23 01:00 Ur Phencyclidine Scrn Negative ng/mL (Negative) 02/26/23 01:00 Ur Amphetamines Screen Negative ng/mL (Negative) 02/26/23 01:00 U Benzodiazepines Scrn Negative ng/mL (Negative) 02/26/23 01:00 Urine Cocaine Screen Negative ng/mL (Negative) 02/26/23 01:00 U Marijuana (THC) Screen Positive ng/mL (Negative) H 02/26/23 01:00 Ethyl Alcohol < 10 mg/dL (0-10) 02/25/23 15:38 MICHAEL IFA Animal Tis Res Negative (NEGATIVE) 02/25/23 09:34 KAREN-1 Antibody <1.0 neg AI (<1.0 NEG) 02/25/23 09:34 SS-A Antibody <1.0 neg AI (<1.0 NEG) 02/25/23 09:34 SS-B Antibody <1.0 neg AI (<1.0 NEG) 02/25/23 09:34 Sm (Bhat) Antibody <1.0 neg AI (<1.0 NEG) 02/25/23 09:34 STAMP ANALYST Antibody <1.0 neg AI (<1.0 NEG) 02/25/23 09:34 Scl-70 Antibody <1.0 neg AI (<1.0 NEG) 02/25/23 09:34 Anti-ds DNA IgG (Crith) Negative (NEGATIVE) 02/25/23 09:34 Centromere B Antibody <1.0 neg AI (<1.0 NEG) 02/25/23 09:34 Thyroid Peroxidase Ab 1 IU/mL (<9) 02/25/23 09:34 Complement C3c 63 mg/dL (82-185) L 02/25/23 09:34 Complement C4c 7 mg/dL (15-53) L 02/25/23 09:34 CH50 Classical Pathway 32 U/mL (31-60) 02/25/23 09:34 Blood Type O Positive 02/25/23 18:27 Rho(D) Type Rh positive 02/25/23 18:27 Antibody Screen Negative 02/25/23 18:27 Micro: Microbiology 03/01/23 23:07 Urine Culture - Final Urine Catheterized 02/26/23 18:24 Blood Culture - Final Blood NO GROWTH AFTER 5 DAYS 02/26/23 18:20 Blood Culture - Final Blood NO GROWTH AFTER 5 DAYS A&P Assessment and plan (1) Acute on chronic HFrEF (heart failure with reduced ejection fraction): (2) Pulmonary HTN: (3) Tobacco abuse: (4) COPD exacerbation: (5) Respiratory distress: (6) Goals of care, counseling/discussion: (7) Pneumonia: Qualifiers: Pneumonia type: due to Pseudomonas Plan #Respiratory distress-most likely secondary to flash edema secondary to underlying systolic CHF with EF 10%-improved # Acute on chronic systolic CHF responded to diuretics and currently appears well compensated #Significant pulmonary hypertension 50 likely group 2 and a possible group 3 - Recommended to Continue diuretics;- - If patient becomes hypotensive-he may need dobutamine plus Levophed -Stress test during this admission revealed a low ejection fraction and a fixed defect in the distribution of the right coronary artery that could very well represent an attenuation artifact. There was no ischemia and this is a relatively low risk scan. -Currently patient is on Aldactone, metoprolol -Cardiology recommendations appreciated # Runs of V. tach -Currently patient is on amiodarone 400 Mg twice daily -Cardiology recommendations appreciated #Significant paraseptal and centrilobular emphysema on CT chest In patient with significant smoking history - Needs PFTs as outpatient as well as adjustment of the inhalers; need ICS/LABA/LAMA on discharge -Counseled patient to quit smoking -Can follow-up in pulmonary clinic # Pseudomonas pneumonia -Pansensitive Pseudomonas -Currently on levofloxacin #Hemoptysis/hematemesis-inpatient with esophagitis/gastritis/duodenitis/peptic ulcer-continue IV PPI -monitor H and H # Deranged LFTs - likely due to hepatic congestion # Goals of care discussion -He wanted limited resuscitation-intubation is okay with no resuscitation -I have explained given his underlying end-stage CHF-he is at high risk for paul intubation mortality. He verbalized understanding At this point patient appears to have clinically improved-awaiting for optimization for outpatient medications and placement; I will sign off and please consult if necessary. Please discharge patient with pulmonary clinic follow-up. I will see patient in clinic for COPD emphysema Attestations 2 Medical Necessity Statement*: Defer to hospitalist Coding Level of Care Code Acute Code for Chg Fwd Diagnoses Acute on chronic HFrEF (heart failure with reduced ejection fraction) I50.23 Pulmonary HTN I27.20 Tobacco abuse Z72.0 COPD exacerbation J44.1 Respiratory distress R06.03 Goals of care, counseling/discussion Z71.89 Pneumonia J18.9 Pneumonia type: due to Pseudomonas Time Spent (min) 35
--- NOTE | 2023-03-04 17:50 | PC.NURSE ---
Provider is notified of lower blood pressures this afternoon. No new orders.
[2023-03-04] MEDS: atorvastatin 40 mg Tablet PO (21:29)
[2023-03-05] VITALS (16 sets, daily range): BP systolic 87–113; BP diastolic 46–78; PULSE 70–93; RESP 15–20; TEMP 36.6; O2SAT 90–96
[2023-03-05] MEDS: sucralfate 1 gm/10 mL Oral Liq UDC PO ×5 (00:13→23:35)
[2023-03-05] MEDS: ipratropium 0.5 mg/2.5 mL Neb INHALATION ×4 (03:32→21:50)
[2023-03-05] MEDS: levalbuterol 1.25 mg/3 mL Neb INHALATION ×4 (03:32→21:50)
[2023-03-05 05:14] LABS: Basophils % 0.2 %; Eosinophils % 0.1 %; Hematocrit 43.6 % (37-53); Lymphocytes # 0.7 10^3/uL (0.8-4.8); Lymphocytes % 6.1 %; Mean Corpuscular HGB Conc 32.8 g/dL (30-55); Mean Corpuscular Hemoglobin 27.1 pg (27-33); Mean Corpuscular Volume 82.6 fl (82-101); Monocytes # 1.2 10^3/uL (0.2-0.9); Monocytes % 10.4 %; Neutrophils # 9.56 10^3/uL (1.8-7.7); Neutrophils % 82.6 %; Nucleated Red Blood Cells % 0 %; Platelet Count 138 10^3/cmm (157-399); Red Blood Count 5.28 10^6/uL (3.85-5.65); Red Cell Distribution Width 14.6 % (12.1-15.1); White Blood Count 11.56 10^3/uL (3.29-11.43)
[2023-03-05 05:33] LABS: Alanine Aminotransferase 224 U/L (0-41); Albumin Level 3.3 g/dL (3.5-5.2); Alkaline Phosphatase 175 U/L (40-130); Blood Urea Nitrogen 26 mg/dL (8-23); Calcium 8.6 mg/dL (8.5-10.5); Carbon Dioxide 23 mmol/L (22-29); Chloride 98 mmol/L (98-107); Globulin 2.3 g/dL (1.3-4.6); Glomerular Filtration Rate 165.9 mL/min (90-130); Glucose 96 mg/dL (65-115); Magnesium 1.9 mg/dL (1.7-2.3); NT Pro B Type Natriuretic Pept 3328 pg/mL (0-125); Osmolality Calculated 275 mOsm/kg (285-295); Phosphorus 3.1 mg/dL (2.5-4.5); Sodium 130 mmol/L (136-145); Total Bilirubin 0.9 mg/dL (0.15-1.2); Total Protein 5.6 g/dL (6.6-8.7)
[2023-03-05 05:35] LABS: Anion Gap 12.8 (5-19); Aspartate Amino Transferase 29 U/L (0-40); Potassium 3.8 mmol/L (3.5-5.1)
[2023-03-05] MEDS: pantoprazole DR 40 mg Tablet PO ×2 (06:27→18:11)
[2023-03-05] MEDS: acetaminophen 500 mg Tablet PO ×2 (06:29→20:17)
--- NOTE | 2023-03-05 07:56 | P.PN_ITS ---
Subjective 2 Subjective: Events of the weekend noted. Apparently the patient had an episode of ventricular tachycardia and has been started on amiodarone. Also a discussion was had with him about a LifeVest. Unfortunately, the patient does not have the capacity to understand what a LifeVest is or what the ramifications of a defibrillator are. He is noncompliant and would not likely use either 1 properly. He probably would not follow-up with the defibrillator evaluation. Additionally, his cardiomyopathy and COPD are end-stage. This morning he states he feels okay. His blood pressure remains soft but he seems to be tolerating the Aldactone, beta-conrado and ROSELIA inhibitor. I see that Lasix was added 3 days ago. Vitals/I&O/Wt Last Vital Signs Temp 98.0 F 03/04/23 20:00 Pulse 93 03/05/23 06:00 Resp 18 03/05/23 03:32 BP 113/78 03/05/23 05:00 Pulse Ox 90 03/05/23 05:00 O2 Del Method Room Air 03/05/23 05:00 O2 Flow Rate 1 03/04/23 12:00 FiO2 30 03/03/23 02:21 03/04/23 03/05/23 03/05/23 22:59 06:59 14:59 Intake Total 220 / 660 Output Total 550 / 1275 625 / 1900 Balance -330 / -615 -625 / -1240 Weight last 48 hrs Weight 105 lb 8 oz Physical Exam 2 Narrative: GENERAL: In general he is emaciated but appears comfortable at rest HEENT: Exam within normal limits. NECK: Supple without jugular vein distention. The carotid upstroke is normal without bruits. BACK: Exam normal. LUNGS: Poor air movement, decreased breath sounds, prolonged expiratory phase. HEART: Regular rate and rhythm ABDOMEN: Benign without organomegaly or tenderness. EXTREMITIES: No edema. NEUROLOGIC: Exam normal. SKIN: Unremarkable. Urinary Catheter Management: Linares: Cath Placed During This Visit: yes, but has since been removed by the nurse Reason for Continuing Indwelling Catheter: Accurate Measurement of Urinary Output in Critically Ill Patients Urinary Catheter Date of Insertion: 02/27/23 Urinary Catheter Time of Insertion: 14:51 Date Urinary Catheter Removed: 03/04/23 Time Urinary Catheter Discontinued: 11:00 Data 03/05/23 04:30 03/05/23 04:30 Micro: Microbiology 03/01/23 23:07 Urine Culture - Final Urine Catheterized A&P Assessment and plan (1) Acute CHF (congestive heart failure): (2) NSTEMI (non-ST elevated myocardial infarction): (3) Left ventricular dysfunction: (4) Tobacco abuse: (5) Acute on chronic HFrEF (heart failure with reduced ejection fraction): (6) Elevated troponin: (7) Nonischemic congestive cardiomyopathy: (8) Ventricular tachycardia by electrocardiography: (9) Pulmonary HTN: (10) Malnourished: (11) Weight loss: (12) COPD (chronic obstructive pulmonary disease): Qualifiers: COPD type: unspecified COPD Qualified Code(s): J44.9 - Chronic obstructive pulmonary disease, unspecified (13) Altered mental status: (14) Lower respiratory infection: (15) Pneumonia: Qualifiers: Pneumonia type: due to Pseudomonas (16) Physical deconditioning: (17) Anorexia: Plan Once again, I am concerned that his body habitus and the configuration of his chest will not be amenable to a LifeVest. Also, I do not think he is capable of understanding how to operate it properly. Finally, I do not think he is a good candidate for a defibrillator. I would like to see a discussion held with his family to see if there are members of his family who feel like we need to proceed with consideration of a LifeVest and ultimately a defibrillator. I am going to decrease the amiodarone to 400 mg once a day. Attestations 2 Medical Necessity Statement*: Hospitalization for management of multiple serious medical problems and Moderate Time for a total of 35 minutes, includes reviewing past or interval history, examining/interviewing patient, placing orders, counseling patient/family/other support, updating patient/family/other support and documenting encounter Diagnoses Acute CHF (congestive heart failure) I50.9 NSTEMI (non-ST elevated myocardial infarction) I21.4 Left ventricular dysfunction I51.9 Tobacco abuse Z72.0 Acute on chronic HFrEF (heart failure with reduced ejection fraction) I50.23 Elevated troponin R79.89 Nonischemic congestive cardiomyopathy I42.0 Ventricular tachycardia by electrocardiography I47.20 Pulmonary HTN I27.20 Malnourished E46 Weight loss R63.4 Chronic obstructive pulmonary disease, unspecified COPD type J44.9 COPD type: unspecified COPD Altered mental status R41.82 Lower respiratory infection J22 Pneumonia J18.9 Pneumonia type: due to Pseudomonas Physical deconditioning R53.81 Anorexia R63.0
[2023-03-05] MEDS: amiodarone 200 mg Tablet 400 MG PO (08:36)
[2023-03-05] MEDS: nicotine 7 mg Patch 1 PATCH TRANSDERMA (08:36)
[2023-03-05] MEDS: spironolactone 25 mg Tablet PO (08:37)
[2023-03-05] MEDS: metoprolol tartrate 25 mg Tablet PO ×2 (08:37→18:11)
[2023-03-05] MEDS: lisinopril 2.5 mg Tablet PO (08:37)
[2023-03-05] MEDS: FUROsemide 40 mg Tablet PO (08:37)
[2023-03-05] MEDS: predniSONE 20 mg Tablet 30 MG PO (08:37)
[2023-03-05] MEDS: budesonide 0.5 mg/2 mL Neb INHALATION ×2 (08:44→21:50)
--- NOTE | 2023-03-05 10:21 | PC.SOCIAL ---
IMM Update Pg 2 of IMM updated and copy provided at bedside.
--- NOTE | 2023-03-05 14:45 | PC.NURSE ---
Provider is notified that the patient states I am having a hard time breathing. His O2 stats are 90-94% and HR is 77. He denies chest pain and there was no change in telemetry. Order is given for hydroxyzine 25mg QID PRN. Order is placed.
[2023-03-05] MEDS: hyDROXYzine 25 mg Capsule PO (14:53)
--- NOTE | 2023-03-05 18:10 | P.PN_ITS ---
Subjective 2 Subjective: Patient in good spirits with no complaints at the time of the evaluation. Just a bit earlier he felt short of breath although vital signs were stable his pulse ox was within normal range. Concern was patient may be somewhat anxious. Patient was given hydroxyzine with good result. Vitals/I&O/Wt Last Vital Signs Temp 97.8 F 03/05/23 08:00 Pulse 77 03/05/23 15:07 Resp 18 03/05/23 15:07 BP 96/61 03/05/23 12:00 Pulse Ox 95 03/05/23 15:07 O2 Del Method Room Air 03/05/23 15:07 O2 Flow Rate 1 03/04/23 12:00 FiO2 30 03/03/23 02:21 03/05/23 03/05/23 03/05/23 06:59 14:59 22:59 Intake Total 360 / 360 Output Total 625 / 1900 300 / 300 Balance -625 / -1240 60 / 60 Weight last 48 hrs Weight 47.004 kg Weight 47.854 kg Physical Exam 2 Narrative: Patient is thin, ashen in appearance. NAD alert and oriented to person place time and situation Heart: Regular distant heart sounds no loud murmur Lungs: Significantly diminished with prolonged expiration no significant wheeze or rhonchi Abdomen: Flat soft nontender nondistended positive bowel sounds no hepatosplenomegaly Extremities no clubbing cyanosis or edema Urinary Catheter Management: [place]: Cath Placed During This Visit: yes, but has since been removed by the nurse Reason for Continuing Indwelling Catheter: Accurate Measurement of Urinary Output in Critically Ill Patients Urinary Catheter Date of Insertion: 02/27/23 Urinary Catheter Time of Insertion: 14:51 Date Urinary Catheter Removed: 03/04/23 Time Urinary Catheter Discontinued: 11:00 Data 03/05/23 04:30 03/05/23 04:30 A&P Assessment and plan (1) Nonischemic congestive cardiomyopathy: (2) Acute on chronic HFrEF (heart failure with reduced ejection fraction): (3) Pulmonary HTN: (4) Tobacco abuse: (5) Protein calorie malnutrition: Qualifiers: Protein-calorie malnutrition severity: severe Qualified Code(s): E43 - Unspecified severe protein-calorie malnutrition (6) Physical deconditioning: (7) Ventricular tachycardia by electrocardiography: (8) Duodenitis: (9) Esophagitis: (10) Gastritis: Qualifiers: Gastritis type: unspecified gastritis Chronicity: unspecified G astritis bleeding: without bleeding Qualified Code(s): K29.70 - Gastritis, unspecified, without bleeding (11) Gastric ulcer: Qualifiers: Gastric ulcer chronicity: acute Gastric ulcer complication status: w ithout hemorrhage or perforation Qualified Code(s): K25.3 - Acute gastric ulcer without hemorrhage or perforation Plan Patient has had a prolonged hospitalization and note from previous attending has an excellent summary. I spoke with Dr. Rodriguez this morning. The patient's main problem is cardiac in nature. He is currently stable for discharge. Unfortunately it was too late for his family to pick him up and they will be here tomorrow. Patient smiles and tells me he is ready to quit smoking. He is doing well with the patch and will continue this at home Attestations 2 Medical Necessity Statement*: Patient will be discharged home in the morning with a ride. Coding Level of Care Code Acute Code for Chg Fwd Diagnoses Nonischemic congestive cardiomyopathy I42.0 Acute on chronic HFrEF (heart failure with reduced ejection fraction) I50.23 Pulmonary HTN I27.20 Tobacco abuse Z72.0 Severe protein-calorie malnutrition E43 Protein-calorie malnutrition severity: severe Physical deconditioning R53.81 Ventricular tachycardia by electrocardiography I47.20 Duodenitis K29.80 Esophagitis K20.90 Gastritis without bleeding, unspecified chronicity, unspecified gastritis type K29.70 Gastritis type: unspecified gastritis Chronicity: unspecified Gastritis bleeding: without bleeding Acute gastric ulcer without hemorrhage or perforation K25.3 Gastric ulcer chronicity: acute Gastric ulcer complication status: without hemorrhage or perforation
[2023-03-05] MEDS: atorvastatin 40 mg Tablet PO (21:06)
[2023-03-06] VITALS (8 sets, daily range): BP systolic 90–101; BP diastolic 61–68; PULSE 71–85; RESP 16–19; TEMP 36.5–36.6; O2SAT 92–95
[2023-03-06] MEDS: ipratropium 0.5 mg/2.5 mL Neb INHALATION ×3 (00:15→08:06)
[2023-03-06] MEDS: levalbuterol 1.25 mg/3 mL Neb INHALATION ×2 (04:09→08:06)
[2023-03-06] MEDS: pantoprazole DR 40 mg Tablet PO (05:50)
[2023-03-06] MEDS: sucralfate 1 gm/10 mL Oral Liq UDC PO ×2 (05:50→11:41)
[2023-03-06] MEDS: budesonide 0.5 mg/2 mL Neb INHALATION (08:06)
--- NOTE | 2023-03-06 08:33 | P.PN_ITS ---
Subjective 2 Subjective: Sitting up eating breakfast this morning. States he feels well. Wants to go home. No more arrhythmias Vitals/I&O/Wt Last Vital Signs Temp 97.9 F 03/06/23 07:19 Pulse 83 03/06/23 08:08 Resp 18 03/06/23 08:08 BP 101/67 03/06/23 07:19 Pulse Ox 94 03/06/23 08:08 O2 Del Method Room Air 03/06/23 08:08 O2 Flow Rate 1 03/04/23 12:00 FiO2 30 03/03/23 02:21 03/05/23 03/06/23 03/06/23 22:59 06:59 14:59 Intake Total 220 / 580 Output Total 100 / 400 120 / 120 Balance 120 / 180 -120 / -120 Weight last 48 hrs Weight 100 lb Weight 103 lb 10 oz Physical Exam 2 Narrative: GENERAL: In general he says he is comfortable HEENT: Exam within normal limits. NECK: Supple without jugular vein distention. The carotid upstroke is normal without bruits. BACK: Exam normal. LUNGS: Clear. HEART: Regular rate and rhythm. ABDOMEN: Benign without organomegaly or tenderness. EXTREMITIES: No edema. NEUROLOGIC: Exam normal. SKIN: Unremarkable. Urinary Catheter Management: [place]: Cath Placed During This Visit: yes, but has since been removed by the nurse Reason for Continuing Indwelling Catheter: Accurate Measurement of Urinary Output in Critically Ill Patients Urinary Catheter Date of Insertion: 02/27/23 Urinary Catheter Time of Insertion: 14:51 Date Urinary Catheter Removed: 03/04/23 Time Urinary Catheter Discontinued: 11:00 Data 03/05/23 04:30 03/05/23 04:30 A&P Assessment and plan (1) Acute CHF (congestive heart failure): (2) Left ventricular dysfunction: (3) Tobacco abuse: (4) Acute on chronic HFrEF (heart failure with reduced ejection fraction): (5) Nonischemic congestive cardiomyopathy: (6) Ventricular tachycardia by electrocardiography: (7) Weight loss: (8) Vitamin D deficiency: (9) Transaminitis: Plan Able to be discharged. He should not go home on any more than 400 mg daily of amiodarone. The dose should be 400 mg once daily for 1 week then decrease to 200 mg once daily. I do not think he is benefiting from a statin. He should go home on Aldactone, beta-conrado and lisinopril as prescribed. He should also go home on furosemide as prescribed. Attestations 2 Medical Necessity Statement*: Able to be discharged today. and Moderate Time for a total of 30 minutes, includes reviewing past or interval history, examining/interviewing patient, counseling patient/family/other support, updating patient/family/other support and documenting encounter Diagnoses Acute CHF (congestive heart failure) I50.9 Left ventricular dysfunction I51.9 Tobacco abuse Z72.0 Acute on chronic HFrEF (heart failure with reduced ejection fraction) I50.23 Nonischemic congestive cardiomyopathy I42.0 Ventricular tachycardia by electrocardiography I47.20 Weight loss R63.4 Vitamin D deficiency E55.9 Transaminitis R74.01
[2023-03-06] MEDS: predniSONE 20 mg Tablet PO (08:59)
[2023-03-06] MEDS: nicotine 7 mg Patch 1 PATCH TRANSDERMA (08:59)
[2023-03-06] MEDS: lisinopril 2.5 mg Tablet PO (08:59)
[2023-03-06] MEDS: metoprolol tartrate 25 mg Tablet PO (08:59)
[2023-03-06] MEDS: spironolactone 25 mg Tablet PO (08:59)
[2023-03-06] MEDS: amiodarone 200 mg Tablet 400 MG PO (08:59)
[2023-03-06] MEDS: FUROsemide 40 mg Tablet PO (08:59)
--- NOTE | 2023-03-06 12:08 | PM.DCS ---
Discharge Providers Date of Admission: 02/25/23 14:55 Date of Discharge: March 06, 2023 Attending Provider at Admission: Hernan Sheppard MD Attending Provider at Discharge: Renee Escalante MD Primary Care Provider: Shannon Merchant APN Diagnoses at Discharge Discharge Diagnosis (1) Acute CHF (congestive heart failure): Status: Resolved (2) Left ventricular dysfunction: Status: Acute (3) Tobacco abuse: Status: Acute (4) Acute on chronic HFrEF (heart failure with reduced ejection fraction): Status: Resolved (5) Nonischemic congestive cardiomyopathy: Status: Acute (6) Ventricular tachycardia by electrocardiography: Status: Acute (7) Weight loss: Status: Acute (8) Vitamin D deficiency: Status: Acute (9) Transaminitis: Status: Resolved Reason for Visit Reason for Visit: SOB Hospital Course Hospital Course Following hospital summary is by Dr. Hicks Mr Collier is a 67yo man w/COPD and CHF, who presented to the ED on 02/25/2023 not on O2, for worsening dyspnea. Prior to this admission, he initially presented to his PCP's office w/ complaints of diarrhea, and episode of emesis, a cough and dyspnea. He was diagnosed with COPD exacerbation and viral gastroenteritis, and given 1 g of Rocephin Decadron 10 mg IM, & promethazine. He then presented on 02/16/2023, to [facility]'s ED, with complaints of 3 days of worsening dyspnea. He was diagnosed with COPD exacerbation. His CXR on 02/16/2023 showed cardiomegaly with trace L. Pleural effusion as well as areas of bilateral mid to lower lung atelectasis. It also showed COPD and a few lung opacities concerning for mild lymphadenopathy. He was discharged with 60 mg p.o. daily of prednisone and 7 days of doxycycline p.o. twice daily. He then presented for the second time to [facility]'s ED on 02/25/2023, with complaints of increased dyspnea and productive cough of bloody sputum as well as vomiting. His CXR on 02/25 was unchanged from 02/16. He was admitted for hemoptysis. On admission, a CTA chest abdomen and pelvis were ordered that showed an inflammed gastric ulcer in the posterior distal body of the stomach, mild fatty infiltration of the liver, and diffuse moderate gallbladder thickening, concerning for cystitis. The general surgeon, Dr. Leal was consulted. A TTE was also ordered, given that his BNP was highly elevated, but he did not look fluid overloaded. His TTE, done on 02/25/2023, showed an EF of 10% with global LV hypokinesis, moderately severe MV regurg, mild to moderate tricuspid valve regurg, and moderate pulmonary HTN with an RVSP of 50.2 mmHg. Based on these new revelations, the senior revenue accountant was also consulted. 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 Biopsies were obtained from the antrum, the lower third of the esophagus, the gastric cardia, antrum, and second part of the duodenum. Post EGD on 02/26/2023, he quickly complained of being dyspneic. He became tachycardic and hypotensive. Given that he just had an EGD, there was concern for bowel perforation, so a stat CT abdomen pelvis was repeated, a CXR was also ordered. He was started on a PPI drip. He was given a duoneb treatment w/ Xopenex. An ABG was ordered that was 7 point 4/44/58.8 on room air, so he was placed on 2L NC. His lactic acid was 4.1, and an LDH and Trop T series were ordered. An EKG was done that showed ST depressions in V5 and V6. He was also started on midodrine for his hypotension. He clinically improved w/ breathing treatments. His CT abd/pelvis was negative for bowel perforation. On 02/27/2023, he had another episode of dyspnea, where he went into a tripod position. The patient was given Lasix IVP and placed on BiPAP. Pulmonology was consulted and family was called. The patient was made DNR, but ok to intubate by his sister. On 02/28/2023, he underwent a stress test that showed a medium sized predominantly fixed perfusion abnormality concerning for an old PR in the RCA distribution or attenuation artifact. His LVEF on the stress test was 15% and showed severe global hypokinesis. He was started on Spironolactone and Metoprolol 25mg BID. He met criteria for sepsis and his Sputum cx collected on 02/27/2023 grew Pseudomonas aeruginosa. Urine cx and BCx were collected, and he was started on Levofloxacin, to which he is sensitive. The Ceftriaxone was d/c'ed and Augmentin were d/c'ed. Lisinopril 2.5mg po BID and Furosemide 40mg po daily was added to his regimen on 03/03/2023. On 03/04/2023, he went into fast Vtach but was asymptomatic, so he was started on 400mg po BID. Per discussion w/ Dr. Hansen, I spoke with him about a life vest, and the patient stated that he is interested in 1, because he would like to live. Pulmonology signed off today 03/04/2023, and would like the patient discharged on Trelegy OR Breztri. LifeVest was revisited at time of discharge. Patient will be discussing it with cardiology at an outpatient appointment before obtaining 1. He will be discharged in stable condition at this point. Physical Exam Narrative: Patient is thin, ashen in appearance. NAD alert and oriented to person place time and situation Heart: Regular distant heart sounds no loud murmur Lungs: Significantly diminished with prolonged expiration no significant wheeze or rhonchi Abdomen: Flat soft nontender nondistended positive bowel sounds no hepatosplenomegaly Extremities no clubbing cyanosis or edema Urinary Catheter Management: Linares: Cath Placed During This Visit: yes, but has since been removed by the nurse Reason for Continuing Indwelling Catheter: Accurate Measurement of Urinary Output in Critically Ill Patients Urinary Catheter Date of Insertion: 02/27/23 Urinary Catheter Time of Insertion: 14:51 Date Urinary Catheter Removed: 03/04/23 Time Urinary Catheter Discontinued: 11:00 Discharge Data Studies Completed and Pending Completed Studies During Hospitalization Category Date Time Status CT abdomen pelvis wo con [id number] Routine Cat Scan 02/26/23 17:[address] angio chest w abd pel w con Stat Cat Scan 02/25/23 12:02 Completed CXRP [XR chest 1V portable [id number]] Routine Exams 03/02/23 10:27 Completed Cardiac Stress Test MIBI [Sestamibi Stress Test Request Exams 02/28/23 07:51 Completed ] Routine XR chest 1V portable [id number] Routine Exams 02/26/23 17:10 Completed XR chest 1V portable [id number] Stat Exams 02/25/23 02:18 Completed NM madina perf SPECT r/s* [id number] Routine Nuc Med 02/28/23 08:53 Completed Pathology: Surgical [PTH] Routine Pth 02/26/23 12:37 Completed CV. echo complete* [id number] Routine Ultrasound 02/25/23 04:52 Completed Pending at discharge Category Date Time Status Blood Culture Stat Lab 03/01/23 22:54 Results Radiology Impressions Chest/Abdomen/Pelvis CT 02/25/23 12:02 IMPRESSION: 1. Interval development of findings suspicious for esophagitis in the mid/distal esophagus. Upper endoscopy may be obtained for further evaluation as clinically indicated. 2. No evidence for pulmonary embolism. 3. Bronchial wall thickening in the right and left lower lobes. Findings could be due to emphysematous changes versus bronchitis. 4. Mild body wall edema. 5. Incidental/nonacute findings are listed in the report. IMPRESSION: 1. Inflamed gastric ulcer in the posterior distal body of the stomach. Increased density layering in the lumen of the stomach, this could represent partially digested medications however a gastric bleed can not be ruled out. Upper endoscopy may be obtained for further evaluation as clinically indicated. 2. Mild fatty infiltration of the liver. 3. Diffuse, moderate bladder wall thickening. In the correct clinical setting, this may suggest cystitis. Recommend correlation with laboratory findings. Alternatively, this may be secondary to chronic outlet obstruction. 4. Mild body wall edema. 5. Incidental/nonacute findings are listed in the report. ADDENDUM: 02/25/23 1210 THIS REPORT CONTAINS FINDINGS THAT MAY BE CRITICAL TO PATIENT CARE. The findings were verbally communicated via telephone conference with KESHA Easley at 4:59 PM FIRE PRODUCTION OPERATOR on 02/25/2023. The findings were acknowledged and understood. Abdomen/Pelvis CT 02/26/23 17:00 IMPRESSION: 1. Borderline to mild cardiomegaly. 2. Interval appearance of moderate thickening in the distal esophageal wall suggesting possible esophagitis. 3. 9 mm Hutch diverticulum in the left posterolateral urinary bladder wall. Axial series 3, image 65. 9 mm gastrohepatic ligament lymph node which may be reactive versus neoplastic. 4. Bowel wall thickening in the rectum consistent with mild proctitis. 5. Dilated air-filled transverse colon and hepatic flexure with moderate retained feces in the ascending colon. 6. No obvious pneumoperitoneum, peritoneal fluid or retroperitoneal hemorrhage. Laboratory Results WBC 11.56 10^3/uL (3.29-11.43) H 03/05/23 04:30 Corrected WBC Cancelled 02/27/23 16:00 RBC 5.28 10^6/uL (3.85-5.65) 03/05/23 04:30 Hgb 14.30 g/dL (11.27-16.99) 03/05/23 04:30 Hct 43.6 % (37-53) 03/05/23 04:30 MCV 82.6 fl (82-101) 03/05/23 04:30 MCH 27.1 pg (27-33) 03/05/23 04:30 MCHC 32.8 g/dL (30-55) 03/05/23 04:30 RDW 14.6 % (12.1-15.1) 03/05/23 04:30 Plt Count 138 10^3/cmm (157-399) L 03/05/23 04:30 MPV 11.0 fL (7.4-10.4) H 03/05/23 04:30 Gran % Cancelled 02/27/23 16:00 Neut % (Auto) 82.6 % 03/05/23 04:30 Lymph % (Auto) 6.1 % 03/05/23 04:30 Darke % (Auto) 10.4 % 03/05/23 04:30 Eos % (Auto) 0.1 % 03/05/23 04:30 Baso % (Auto) 0.2 % 03/05/23 04:30 Neut # (Auto) 9.56 10^3/uL (1.8-7.7) H 03/05/23 04:30 Lymph # (Auto) 0.7 10^3/uL (0.8-4.8) L 03/05/23 04:30 Darke # (Auto) 1.2 10^3/uL (0.2-0.9) H 03/05/23 04:30 Eos # (Auto) 0.0 10^3/uL (0.0-0.8) 03/05/23 04:30 Baso # (Auto) 0.0 10^3/uL (0.0-0.1) 03/05/23 04:30 Absolute Gran (auto) Cancelled 02/27/23 16:00 Nucleated RBC % (auto) 0 % 03/05/23 04:30 Nucleated RBCs # 0.0 /100WBC 03/05/23 04:30 ESR 1 mm/hr (0-10) 02/25/23 09:34 PT 17.60 SECONDS (12.1-14.9) H 02/25/23 17:45 INR 1.39 (0.8-1.2) H 02/25/23 17:45 D-Dimer 6.28 ug/mLFEU (0-0.59) H 02/25/23 05:19 Specimen Type Arterial 03/01/23 22:57 Sample Site Radial, right 03/01/23 22:57 ABG pH 7.44 (7.35-7.45) 03/01/23 22:57 ABG pCO2 53.7 mmHg (35-45) H 03/01/23 22:57 ABG pO2 102.0 mmHg (80.0-100.0) H 03/01/23 22:57 ABG PO2/FiO2 Ratio 0 02/27/23 14:31 ABG HCO3 36.4 mmol/L (22-26) H 03/01/23 22:57 ABG O2 Saturation 97.9 03/01/23 22:57 ABG Base Excess 10.4 mmol/L (-2.0-2.0) H 03/01/23 22:57 Abelino Test Pos 03/01/23 22:57 A-a O2 Gradient Not Reportable 03/01/23 22:57 Hematocrit 38.9 % (42-52) L 03/01/23 22:57 Hgb O2 Saturation 96.2 % (95-100) 03/01/23 22:57 Carboxyhemoglobin 1.1 %THgb (0.4-20.1) 03/01/23 22:57 Methemoglobin 0.6 % (0.4-1.5) 03/01/23 22:57 Total Hemoglobin 12.7 g/dL (14-18) L 03/01/23 22:57 Sodium 134.0 mmol/L (131-143) 03/01/23 22:57 Potassium 4.6 mmol/L (3.5-5.0) 03/01/23 22:57 Glucose 160.0 mg/dL (70-115) H 03/01/23 22:57 Ionized Calcium 1.2 mmol/L (1.1-1.4) 03/01/23 22:57 O2 Delivery Device Nc 03/01/23 22:57 O2 Liters/Min 2.0 % 03/01/23 22:57 FiO2 50.0 % 02/27/23 14:31 Band And Cuff Cutter ID [email or web address] 03/01/23 22:57 Sodium 130 mmol/L (136-145) L 03/05/23 04:30 Potassium 3.8 mmol/L (3.5-5.1) 03/05/23 04:30 Chloride 98 mmol/L (98-107) 03/05/23 04:30 Carbon Dioxide 23 mmol/L (22-29) 03/05/23 04:30 Anion Gap 12.8 (5-19) 03/05/23 04:30 BUN 26 mg/dL (8-23) H 03/05/23 04:30 Creatinine 0.5 mg/dL (0.7-1.2) L 03/05/23 04:30 GFR Calculation 165.9 mL/min (90-130) H 03/05/23 04:30 Glucose 96 mg/dL (65-115) 03/05/23 04:30 Estimat Average Glucose 134 02/25/23 09:34 Hemoglobin A1c 6.3 % (4.0-6.0) H 02/25/23 09:34 Calculated Osmolality 275 mOsm/kg (285-295) L 03/05/23 04:30 Lactate 2.4 mmol/L (0.5-2.2) H 03/01/23 22:52 Calcium 8.6 mg/dL (8.5-10.5) 03/05/23 04:30 Phosphorus 3.1 mg/dL (2.5-4.5) 03/05/23 04:30 Magnesium 1.9 mg/dL (1.7-2.3) 03/05/23 04:30 Total Bilirubin 0.9 mg/dL (0.15-1.2) 03/05/23 04:30 Direct Bilirubin 0.40 mg/dL (0.00-0.30) H 03/04/23 04:42 GGT 381 U/L (8-61) H 03/03/23 05:14 AST 29 U/L (0-40) 03/05/23 04:30 ALT 224 U/L (0-41) H 03/05/23 04:30 Alkaline Phosphatase 175 U/L (40-130) H 03/05/23 04:30 Ammonia 46 umol/L (16-60) 02/28/23 03:25 Lactate Dehydrogenase 424 U/L (135-225) H 03/03/23 05:14 Troponin T Baseline 34 ng/L (0-15) H 02/26/23 18:20 Troponin T 120 Minute 26.07 ng/L (0-15) H 02/26/23 21:04 Delta Troponin T -7.93 ABS# (0-10) L 02/26/23 21:04 Troponin T Hi Sens 6Hr 25.98 ng/L (0-15) H 02/27/23 02:02 Troponin T Hi Sens 6Hr Delta -8.02 ng/L (0-12) L 02/27/23 02:02 C-Reactive Protein 21.0 mg/L (0.0-4.9) H 02/26/23 03:05 NT-Pro-B Natriuret Pep 3328 pg/mL (0-125) H 03/05/23 04:30 Total Protein 5.6 g/dL (6.6-8.7) L 03/05/23 04:30 Albumin 3.3 g/dL (3.5-5.2) L 03/05/23 04:30 Globulin 2.3 g/dL (1.3-4.6) 03/05/23 04:30 Lipase 15 U/L (13-60) 02/25/23 09:34 Vitamin B12 > 2000 pg/mL (232-1245) H 02/25/23 02:22 Procalcitonin 0.13 ng/mL (0-0.5) 02/25/23 08:10 TSH 2.61 uIU/mL (0.27-4.20) 02/25/23 09:34 Urine Color Dark yellow (Yellow) 02/27/23 03:30 Urine Appearance Sl hazy (CLEAR) A 02/27/23 03:30 Urine pH 5 (5-7) 02/27/23 03:30 Ur Specific [place] 1.020 (1.005-1.030) 02/27/23 03:30 Urine Protein 1+ (Negative) H 02/27/23 03:30 Urine Glucose (UA) Norm (Normal) 02/27/23 03:30 Urine Ketones Negative (Negative) 02/27/23 03:30 Urine Blood 2+ (Negative) H 02/27/23 03:30 Urine Nitrate Negative (Negative) 02/27/23 03:30 Urine Bilirubin Neg (Negative) 02/27/23 03:30 Urine Urobilinogen Neg mg/dL (Negative) 02/27/23 03:30 Ur Leukocyte Esterase Negative (Negative) 02/27/23 03:30 Urine RBC 0-4 /hpf (0-2) H 02/27/23 03:30 Urine WBC 0-4 /hpf (0-5) H 02/27/23 03:30 Ur Squamous Epith Cells None /hpf (0-5) 02/27/23 03:30 Ur Transition Epith Cell 0-4 /hpf 02/27/23 03:30 Amorphous Sediment Not Reportable 02/27/23 03:30 Urine Bacteria 1+ /hpf (NONE) H 02/27/23 03:30 Urine Mucus 3+ /hpf 02/27/23 03:30 Urine Opiates Screen Positive ng/mL (Negative) H 02/26/23 01:00 Ur Barbiturates Screen Negative ng/mL (Negative) 02/26/23 01:00 Ur Phencyclidine Scrn Negative ng/mL (Negative) 02/26/23 01:00 Ur Amphetamines Screen Negative ng/mL (Negative) 02/26/23 01:00 U Benzodiazepines Scrn Negative ng/mL (Negative) 02/26/23 01:00 Urine Cocaine Screen Negative ng/mL (Negative) 02/26/23 01:00 U Marijuana (THC) Screen Positive ng/mL (Negative) H 02/26/23 01:00 Ethyl Alcohol < 10 mg/dL (0-10) 02/25/23 15:38 MICHAEL IFA Animal Tis Res Negative (NEGATIVE) 02/25/23 09:34 KAREN-1 Antibody <1.0 neg AI (<1.0 NEG) 02/25/23 09:34 SS-A Antibody <1.0 neg AI (<1.0 NEG) 02/25/23 09:34 SS-B Antibody <1.0 neg AI (<1.0 NEG) 02/25/23 09:34 Sm (Bhat) Antibody <1.0 neg AI (<1.0 NEG) 02/25/23 09:34 FIRE CONTROL ASSISTANT Antibody <1.0 neg AI (<1.0 NEG) 02/25/23 09:34 Scl-70 Antibody <1.0 neg AI (<1.0 NEG) 02/25/23 09:34 Anti-ds DNA IgG (Crith) Negative (NEGATIVE) 02/25/23 09:34 Centromere B Antibody <1.0 neg AI (<1.0 NEG) 02/25/23 09:34 Thyroid Peroxidase Ab 1 IU/mL (<9) 02/25/23 09:34 Complement C3c 63 mg/dL (82-185) L 02/25/23 09:34 Complement C4c 7 mg/dL (15-53) L 02/25/23 09:34 CH50 Classical Pathway 32 U/mL (31-60) 02/25/23 09:34 Blood Type O Positive 02/25/23 18:27 Rho(D) Type Rh positive 02/25/23 18:27 Antibody Screen Negative 02/25/23 18:27 Vitals Last Vital Signs Temp 97.8 F 03/06/23 11:10 Pulse 82 03/06/23 11:10 Resp 18 03/06/23 11:10 BP 90/64 03/06/23 11:10 Pulse Ox 95 03/06/23 11:10 O2 Del Method Room Air 03/06/23 11:10 O2 Flow Rate 1 03/04/23 12:00 FiO2 30 03/03/23 02:21 Discharge Plan Discharge Patient Disposition: Home Condition: Fair Prescriptions: Braxton Weaver Ellipta 100-62.5-25 mcg blister with device 1 inh inhalation Q24H Qty: 60 0RF Pacerone 200 mg Tablet See Rx Instructions .ROUTE .COMPLEX Qty: 50 0RF Rx Instructions: take 2 tabs daily for 7 days then reduce dose to 1 tab daily. furosemide 40 mg Tablet 40 mg PO DAILY@0800 Qty: 30 0RF atorvastatin 40 mg Tablet 40 mg PO BEDTIME Qty: 30 0RF sucralfate 100 mg/mL Suspension 1 g PO TID 14 Days Qty: 400 0RF spironolactone 25 mg Tablet 25 mg PO DAILY Qty: 30 0RF pantoprazole 40 mg Tablet,Delayed Release (Dr/Ec) 40 mg PO BIDAC Qty: 60 0RF lisinopril 2.5 mg Tablet 2.5 mg PO DAILY Qty: 30 0RF nicotine 7 mg/24 hr Patch 24 Hour 1 patch transdermal DAILY Qty: 30 0RF metoprolol tartrate 25 mg Tablet 25 mg PO BID Qty: 60 0RF levofloxacin 750 mg tablet 750 mg PO DAILY 5 Days Qty: 5 0RF prednisone 5 mg tablet See Rx Instructions .ROUTE .COMPLEX Qty: 21 0RF Rx Instructions: take 4 tablets daily for 3 days take 2 tablets daily for 3 days take 1 tablet daily for 3 days Continued promethazine-DM 6.25-15 mg/5 mL syrup 5 - 10 ml PO Q6H PRN (Reason: cough) 14 Days Qty: 473 0RF nystatin 100,000 unit/mL suspension 5 ml PO QID 14 Days Qty: 280 0RF Rx Instructions: swish and swallow (DME) Magic Mouthwash liquid See Rx Instructions .Route .MEDSUPPLY Qty: 1 0RF Rx Instructions: 5ml 4 times a day - swish and swallow/spit albuterol sulfate [ProAir HFA] 90 mcg/actuation HFA aerosol inhaler 1 inh INHALATION TID PRN (Reason: shortness of breath) Qty: 18 5RF ergocalciferol (vitamin D2) 1,250 mcg (50,000 unit) capsule See Rx Instructions .ROUTE .COMPLEX Qty: 4 2RF Dose Instruction: TAKE ONE CAPSULE BY MOUTH ONCE A WEEK Rx Instructions: TAKE ONE CAPSULE BY MOUTH ONCE A WEEK ON SUNDAY albuterol sulfate 2.5 mg /3 mL (0.083 %) solution for nebulization See Rx Instructions .ROUTE .COMPLEX Qty: 180 0RF Dose Instruction: USE 1 VIAL (3 ML) IN NEBULIZER every 6 HOURS Needed FOR shortness OF breath OR wheezing Rx Instructions: USE 1 VIAL (3 ML) IN NEBULIZER every 6 HOURS Needed FOR shortness OF breath OR wheezing famotidine 20 mg tablet 20 mg PO BID fluticasone propionate 50 mcg/actuation spray,suspension 1 spray intranasal DAILY Discontinued celecoxib [Celebrex] 200 mg capsule 200 mg PO DAILY Qty: 30 4RF lisinopril 5 mg tablet 5 mg PO DAILY amoxicillin-pot clavulanate 875-125 mg tablet 1 tab PO BID fluticasone propion-salmeterol [Advair Diskus] 500-50 mcg/dose blister with device 1 inh inhalation BID Atrovent HFA 17 mcg/actuation HFA aerosol inhaler 2 inh inhalation QID Discharge Orders: Discharge Order (Routine); Ordered 03/06/23 Ordered By: Renee Escalante Referrals: [facility] [Other] (You can call this number to see how to set up consumer directed services. Where your family can be your caregiver. ) [facility] [Other] (You can call this number to see if you qualify for in home services. Have your medicaid number available when you call. ) Kasey Hansen MD [Physician] - 1 month (After your appointment with Jenifer Guerrero, you will scheduled for an follow-up with Dr. Hansen. Thank you. ) BRIGITTE Ceballos FNP [Nurse Practitioner] - 03/09/23 9:30 am Jenifer Guerrero FNP [Nurse Practitioner] - 03/15/23 10:30 am Discharge Diet: Cardiac Discharge Activity: Resume usual activity and Oxygen as instructed Patient Instructions: Metoprolol (By mouth) (Lopressor, Toprol XL), Spironolactone (By mouth) ([place], Karospir), Lisinopril (By mouth) (Prinivil, Zestril), Furosemide (By mouth) (Lasix), Sucralfate (By mouth) (Carafate), Amiodarone (By mouth) (Cordarone, Pacerone), Nicotine (Absorbed through the skin) (Nicoderm CQ, Nicoderm CQ..., Atorvastatin (By mouth) (Lipitor, Atorvaliq), Levofloxacin (By mouth) (Levaquin, Levaquin Leva-sixto), Pantoprazole (By mouth) (Protonix), Fluticasone/Umeclidinium/Vilanterol (By breathing) (Trelegy Ellipta), Budesonide/Glycopyrrolate/Formoterol (By breathing) (Breztri Aerosphere), Heart Failure (DC), CHF Stoplight, GI Discharge Instructions, Opioid Safety Discharge Attestations Time Spent in Discharge Care*: greater than 30 min Quality Metrics Clinical Quality Measures [ No reported AMI, CVA or VTE this stay] Coding Level of Care Code Acute Code for Chg Fwd Diagnoses Acute CHF (congestive heart failure) I50.9 Left ventricular dysfunction I51.9 Tobacco abuse Z72.0 Acute on chronic HFrEF (heart failure with reduced ejection fraction) I50.23 Nonischemic congestive cardiomyopathy I42.0 Ventricular tachycardia by electrocardiography I47.20 Weight loss R63.4 Vitamin D deficiency E55.9 Transaminitis R74.01
--- NOTE | 2023-03-06 17:07 | PC.NURSE ---
Patient left via a wheelchair to [facility].
== END 2023-03-06 17:08 | disposition home or self-care (01) | DRG 280 ==
LOC: ER 04:23 → MEDSURG 05:11 → ICU 17:22 → MEDSURG 02-27 13:53 → ICU 02-28 05:15 → CSU 02-28 18:26
PROVIDERS: Family Medicine; Internal Medicine; Internal Medicine Pulmonary Disease; Surgery; Admitting Provider Internal Medicine; Emergency Provider Emergency Medicine; PCP Nurse Practitioner; Visit Provider Internal Medicine
PROC: 0DJ08ZZ Inspection of Upper Intestinal Tract, Via Natural or Artificial Opening Endoscopic (ICD-10-PCS; CPT 43235; principal; 2023-02-26 10:30)
DX: I50.23 Acute on chronic systolic (congestive) heart failure (principal); I21.A1 Myocardial infarction type 2; E43 Unspecified severe protein-calorie malnutrition; J15.1 Pneumonia due to Pseudomonas; I42.9 Cardiomyopathy, unspecified; K25.3 Acute gastric ulcer without hemorrhage or perforation; Z68.1 Body mass index [BMI] 19.9 or less, adult; E87.20 Acidosis, unspecified; I47.20 Ventricular tachycardia, unspecified; F17.210 Nicotine dependence, cigarettes, uncomplicated; E55.9 Vitamin D deficiency, unspecified; J43.2 Centrilobular emphysema; I08.1 Rheumatic disorders of both mitral and tricuspid valves; I27.20 Pulmonary hypertension, unspecified; K29.70 Gastritis, unspecified, without bleeding; K20.90 Esophagitis, unspecified without bleeding; K22.70 Barrett's esophagus without dysplasia; K29.80 Duodenitis without bleeding; R41.82 Altered mental status, unspecified; K44.9 Diaphragmatic hernia without obstruction or gangrene; E78.00 Pure hypercholesterolemia, unspecified; F41.9 Anxiety disorder, unspecified; R74.01 Elevation of levels of liver transaminase levels; I25.2 Old myocardial infarction; I95.9 Hypotension, unspecified
CPT/HCPCS: 36415; 36430; 36573; 36600; 43236; 43239; 51702; 71045; 71275; 74176; 74177; 78452; 80048; 80051; 80053; 80076; 80306; 80307; 81001; 82140; 82330; 82607; 82803; 82805; 82977; 83036; 83605; 83615; 83690; 83735; 83880; 84100; 84145; 84443; 84450; 84460; 84484; 85014; 85018; 85025; 85378; 85610; 85651; 86140; 86160; 86162; 86235; 86255; 86376; 86850; 86900; 86927; 87040; 87070; 87077; 87086; 87186; 87205; 88305; 88312; 88342; 93005; 93017; 93306; 94640; 94660; 94760; 96375; 96376; 97167; 97530; 97535; A9500; C1751; C9113; G0378; J0171; J0456; J0696; J1940; J1956; J2060; J2250; J2270; J2405; J2765; J2785; J2920; J2930; J3490; J7030; J7050; J7512; J7614; J7626; J7644; P9017; P9046; Q0144; Q9967

== ENCOUNTER → 2023-03-15 10:59 | Outpatient (BNVA) | payer MEDICARE, MEDICAID, SELFPAY | PROVIDERS: PCP Nurse Practitioner; Visit Provider Nurse Practitioner Family | DX: I51.9 Heart disease, unspecified (principal); I47.20 Ventricular tachycardia, unspecified; R09.89 Other specified symptoms and signs involving the circulatory and respiratory systems; Z09 Encounter for follow-up examination after completed treatment for conditions other than malignant neoplasm; I45.9 Conduction disorder, unspecified; F17.200 Nicotine dependence, unspecified, uncomplicated | CPT/HCPCS: 93005; 99213 ==

== ENCOUNTER → 2023-04-18 09:13 | Outpatient (BNVA) | payer MEDICARE, MEDICAID, SELFPAY | PROVIDERS: PCP Nurse Practitioner; Visit Provider Nurse Practitioner Family | DX: R14.0 Abdominal distension (gaseous) (principal); R74.8 Abnormal levels of other serum enzymes; R79.89 Other specified abnormal findings of blood chemistry; I42.0 Dilated cardiomyopathy; R10.9 Unspecified abdominal pain; K59.00 Constipation, unspecified; R06.02 Shortness of breath | CPT/HCPCS: 74018; 80053; 81003; 82150; 82607; 83690; 83880; 85025 ==

== ENCOUNTER → 2023-05-10 16:04 | Outpatient (BNVA) | payer MEDICARE, MEDICAID, SELFPAY | PROVIDERS: PCP Nurse Practitioner; Visit Provider Internal Medicine Cardiovascular Disease | DX: R06.02 Shortness of breath (principal); K59.00 Constipation, unspecified; J44.9 Chronic obstructive pulmonary disease, unspecified | CPT/HCPCS: 36415; 80048; 83880; 99214 ==

== ENCOUNTER → 2023-06-07 09:36 | Outpatient (BNVA) | payer MEDICARE, MEDICAID, SELFPAY | PROVIDERS: PCP Nurse Practitioner Family; Visit Provider Nurse Practitioner Family | DX: I50.22 Chronic systolic (congestive) heart failure (principal); F17.210 Nicotine dependence, cigarettes, uncomplicated; E78.00 Pure hypercholesterolemia, unspecified | CPT/HCPCS: 36415; 80048; 83880; 99214 ==

== ENCOUNTER → 2023-07-26 10:48 | Outpatient (BNVA) | payer MEDICARE, MEDICAID, SELFPAY | PROVIDERS: PCP Nurse Practitioner Family; Visit Provider Nurse Practitioner Family | DX: I50.22 Chronic systolic (congestive) heart failure (principal); E78.00 Pure hypercholesterolemia, unspecified; F17.200 Nicotine dependence, unspecified, uncomplicated | CPT/HCPCS: 36415; 80048; 83880; 99214 ==

== ENCOUNTER → 2023-09-11 14:02 | Outpatient (BNVA) | payer MEDICARE, MEDICAID, SELFPAY | PROVIDERS: PCP Nurse Practitioner Family; Visit Provider Internal Medicine Cardiovascular Disease | DX: I50.22 Chronic systolic (congestive) heart failure (principal); I47.20 Ventricular tachycardia, unspecified; I42.0 Dilated cardiomyopathy; Z13.6 Encounter for screening for cardiovascular disorders; Z72.0 Tobacco use; E78.5 Hyperlipidemia, unspecified | CPT/HCPCS: 99214 ==

== ENCOUNTER → 2024-04-01 14:15 | Outpatient (BNVA) | payer MEDICARE, MEDICAID, SELFPAY | PROVIDERS: PCP Nurse Practitioner Family; Visit Provider Internal Medicine Cardiovascular Disease | DX: I42.8 Other cardiomyopathies (principal); I47.20 Ventricular tachycardia, unspecified; E78.5 Hyperlipidemia, unspecified; I50.22 Chronic systolic (congestive) heart failure; I27.20 Pulmonary hypertension, unspecified; F17.200 Nicotine dependence, unspecified, uncomplicated | CPT/HCPCS: 99214 ==

== ENCOUNTER → 2024-07-03 13:42 | Outpatient (BNVA) | payer MEDICARE, MEDICAID, SELFPAY | PROVIDERS: PCP Nurse Practitioner Family; Visit Provider Nurse Practitioner Family | DX: J22 Unspecified acute lower respiratory infection (principal); R06.02 Shortness of breath | CPT/HCPCS: 71046 ==

== ENCOUNTER → 2024-10-01 09:24 | Outpatient (BNVA) | payer OTHER, MEDICAID, SELFPAY | PROVIDERS: PCP Nurse Practitioner Family; Visit Provider Nurse Practitioner Family | DX: I11.0 Hypertensive heart disease with heart failure (principal); I50.22 Chronic systolic (congestive) heart failure; Z13.6 Encounter for screening for cardiovascular disorders; I42.8 Other cardiomyopathies; I47.20 Ventricular tachycardia, unspecified; E78.5 Hyperlipidemia, unspecified; F17.200 Nicotine dependence, unspecified, uncomplicated | CPT/HCPCS: 36415; 80053; 85025; 99213 ==